=== PATIENT | female | born 1955 | race Caucasian/White ===

== ENCOUNTER 2019-03-04 13:37 | Outpatient (CLI) | payer MEDICARE, MEDICAID, SELFPAY | END 2019-03-04 13:38 | disposition home or self-care (01) | LOC: RT 13:43 | PROVIDERS: Family Provider Family Medicine; PCP Family Medicine; Visit Provider Internal Medicine Critical Care Medicine | DX: J98.4 Other disorders of lung (principal) | CPT/HCPCS: 94060; 94726; 94729; J7611 ==

== ENCOUNTER → 2019-03-20 08:08 | Outpatient (BNVA) | payer MEDICARE, MEDICAID, SELFPAY | PROVIDERS: Family Provider Family Medicine; PCP Family Medicine; Visit Provider Nurse Practitioner | DX: F33.41 Major depressive disorder, recurrent, in partial remission (principal); F43.12 Post-traumatic stress disorder, chronic; G31.84 Mild cognitive impairment of uncertain or unknown etiology | CPT/HCPCS: 99214 ==

== ENCOUNTER 2019-04-29 20:00 | Outpatient (CLI) | payer MEDICARE, MEDICAID, SELFPAY | END 2019-04-29 20:01 | disposition home or self-care (01) | LOC: SLEEP 04-30 10:12 | PROVIDERS: Family Provider Family Medicine; PCP Family Medicine; Visit Provider Internal Medicine Critical Care Medicine | DX: G47.33 Obstructive sleep apnea (adult) (pediatric) (principal) | CPT/HCPCS: 95810 ==

== ENCOUNTER → 2019-06-12 08:22 | Outpatient (BNVA) | payer MEDICARE, MEDICAID, SELFPAY | PROVIDERS: Family Provider Family Medicine; PCP Family Medicine; Visit Provider Nurse Practitioner | DX: F33.41 Major depressive disorder, recurrent, in partial remission (principal); F43.12 Post-traumatic stress disorder, chronic; G31.84 Mild cognitive impairment of uncertain or unknown etiology | CPT/HCPCS: 99213 ==

== ENCOUNTER 2019-06-12 15:53 | Outpatient (CLI) | payer MEDICARE, MEDICAID, SELFPAY ==
--- NOTE | 2019-06-12 | US_ITS ---
WS: [id number] LEFT LOWER EXTREMITY VENOUS ULTRASOUND EXAMINATION CLINICAL INFORMATION: PAIN OF LEFT CALF COMPARISON: None. FINDINGS: Thigh veins The left common femoral, femoral, popliteal, proximal medial saphenous, deep femoral veins are patent and free of thrombus. The veins are normally compressible, and have normal phasic flow and augmentat ion response. Calf veins The paired peroneal and posterior tibial calf veins are patent bilaterally. US/ROR venous duplex LE LT IMPRESSION: Negative study. No deep vein thrombosis of the left lower extremity.
== END 2019-06-12 15:54 | disposition home or self-care (01) ==
PROVIDERS: Family Provider Family Medicine; PCP Family Medicine; Visit Provider Family Medicine
DX: M79.662 Pain in left lower leg (principal)

== ENCOUNTER 2019-07-11 11:32 | Inpatient (IN) | payer MEDICARE, MEDICAID, SELFPAY ==
[2019-07-11] VITALS (13 sets, daily range): BP systolic 73–145; BP diastolic 47–112; PULSE 64–107; RESP 13–24; TEMP 36.2–36.8; O2SAT 96–98; BMI 38.4
--- NOTE | 2019-07-11 11:37 | CT_ITS ---
WS: [id number] CT HEAD NONCONTRAST HISTORY: AMS TECHNIQUE: Contiguous axial imaging performed through the brain in 2.5 mm imaging. Bone and soft tiss ue windows. Sagittal and coronal reformats reviewed. All CT scans at [facility] use at ast one of these dose optimization techniques: automated exposure control; mA and/or kV adjustment pe r patient size (includes targeted exams where dose is matched to clinical indication); or iterative r econstruction. DLP: 1120.35 mGy.cm COMPARISON: 11/07/2018 No acute intracranial hemorrhage, midline shift or mass effect. Mild bilateral cerebral atrophy. Prior infarct along the RIGHT external capsule. Mild chronic microva scular ischemic changes greatest involving the RIGHT potts radiata. Ventricles: Normal size with no hydrocephalus. Paranasal sinuses: As visualized are clear. Mastoid air cells: Well pneumatized. Calvarium and scalp: Skull is intact with no soft tissue edema or swelling. CT/CT head wo con* [id number] IMPRESSION: 1. No acute infarct or intracranial hemorrhage. 2. 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
--- NOTE | 2019-07-11 11:37 | XR_ITS ---
WS: [id number] PORTABLE CHEST HISTORY: SOB COMPARISON: 11/07/2018 Patient is significantly rotated to the RIGHT. Lung volumes are decreased. No pneumonia is identified. Similar appearance of the lungs as compared t o the prior study. No pleural effusion or pneumothorax. Cardiac size: Normal. Mediastinum/Aorta: Mild atherosclerosis aorta. Bones are osteopenic. XR/XR chest 1V portable [id number] IMPRESSION: Limited by rotation. No pneumonia or acute findings.
--- NOTE | 2019-07-11 11:47 | W.ED.AMS ---
HPI - Altered Mental Status General: Chief Complaint: Altered Mental Status Stated Complaint: Altered mental status, low blood pressure Time Seen by Provider: 07/11/19 11:37 History of Present Illness: HPI narrative: This patient is a 63-year-old female presenting with altered mental status. She was brought in by EMS and reportedly went to a neighbor's house where she was noted to be very confused and EMS was called. On their arrival her blood pressure was in the 70s systolic. Her only complaint is pain in her right leg. She indicates it is in her calf. She does seem confused but is able to answer questions. She can tell me her name, where she is, her primary care doctor who is Dr. Blake. She did however think it was February. She was able to tell me that she takes medicine for high blood pressure and that she does not have a history of diabetes, heart disease, stroke. When I asked her how she felt today she said I have felt better . MD complaint: altered mental status and confusion Onset (ago): unknown Context: unknown Review of Systems General: Reports: ROS unobtainable due to medical condition and ROS unobtainable due to mental status [facility] ED PFSH: Medical History (Updated 07/11/19 @ 15:07 by Alen Johnson MD) Hyponatremia Major depressive disorder, recurrent, in partial remission Mild cognitive impairment, so stated Post-traumatic stress disorder, chronic Social History Smoking and tobacco status: former smoker Physical Exam Const: COMMON NORMALS: no acute distress and alert GENERAL APPEARANCE: cooperative, anxious, disheveled and other (Answering questions mostly in single word answers. Very flat affect.) HENMT: HEAD & SCALP: normal to inspection FACE & SINUS: normal facial exam and other (Some redness around the face in general) MOUTH: moist mucous membranes abnormal (Dry) Eye: GENERAL EYE: appearance normal, both eyes and all related structures Neck/C-Spine: COMMON NORMALS: supple, no meningeal signs and no JVD Chest: COMMONS NORMALS: normal inspection of the chest Resp: COMMON NORMALS: normal respiratory effort, No use of accessory muscles and clear to auscultation bilaterally AUSCULTATION: clear to auscultation bilaterally Cardio: COMMON NORMALS: no JVD, regular rhythm and No murmurs present (Cardio) RATE: tachycardic RHYTHM: regular rhythm GI: COMMON NORMALS: Normal to inspection, nondistended, normoactive bowel sounds present, Soft to palpation and non-tender INSPECTION: Yes normal to inspection AUSCULTATION: Yes normoactive bowel sounds PALPATION: Yes Soft to palpation Back/Pelvis: COMMON NORMALS: thoracic and lumbar spine normal to inspection Extremity: COMMON NORMALS: normal to inspection, no calf tenderness (Unable to reproduce pain however she is complaining of pain in the right calf.) and no pedal edema Neuro: SENSORIUM/ORIENTATION: Yes alert MENINGEAL SIGNS: Yes no meningeal signs Psych: COMMON NORMALS: cooperative APPEARANCE: Yes disheveled MOOD & AFFECT: Yes Flat affect present THOUGHT PROCESS: Impoverished thought process present ATTENTION/CONCENTRATION: Yes attention grossly intact Skin: COMMON NORMALS: no rashes or lesions noted and turgor normal GENERAL SKIN EXAM: no rashes or lesions noted and turgor normal Course ED course: Triage blood pressure seem to be erroneous and then it was repeated. She was then noted again to be 70 systolic. I had already ordered 500 mL's of fluid and ordered another liter of normal saline as well. Her blood pressure has gradually improved into the 90s and is now 125/63. Heart rate is 72. She is resting quietly in the bed awaiting CT. Reevaluation(s): Reevaluation #1: The patient became more alert throughout her ER stay and also became more agitated. She was given a little bit of Ativan and then some Geodon to try to help her relax. Her daughter also said at bedside. I got further history from her daughter and she said that yesterday her mother seemed to be fine. She does have a little bit of dementia but she is definitely out of it today per her daughter's assessment. The daughter does not know of any recent illnesses or medication changes. She had not seen the patient today. Work-up showed a basically normal ABG. Potassium was 2.3, sodium 129. CO2 was 17. Lactate was 3.6 and d-dimer was slightly above the normal range at 0.78. I believe her leg pain is probably related to the low potassium. Her magnesium was okay. CT head was negative for anything acute. Blood pressure has remained good since she got her fluid bolus. I am going to admit her for further management. I also gave her a dose of antibiotics as it appears that her urine is infected. This may be the cause of her acute mental status change. Time: 14:55 Vital Signs: Vital signs: Vital Signs Temperature 98.1 F 07/11/19 15:49 Pulse Rate 80 07/11/19 15:49 Respiratory Rate 18 07/11/19 15:49 Blood Pressure 117/66 07/11/19 15:49 Pulse Oximetry 96 07/11/19 15:49 MDM - Altered Mental Status MDM Narrative: Medical decision making narrative: Altered mental status, hypotension, hypokalemia. She is on multiple medications including some for her dementia. She is also on medications which could affect her potassium level. Her daughter says that the patient keeps her medications in daily dose boxes and is unlikely to have taken extra. She does have a UTI and this could be enough, given her baseline dementia, to cause an altered mental status. Potassium replaced in the ED. Initially started magnesium on the presumption that that would be low as well however it was not. Her blood pressure responded nicely to fluids. She will be admitted for further monitoring and evaluation. Lab Data: Labs: Lab Results 07/11/19 07/11/19 07/11/19 Range/Units 11:37 11:37 11:37 WBC 7.8 (4.0-10.0) 10^3/ uL RBC 4.44 (4.1-5.3) 10^6/u L Hgb 13.6 (11.5-15.3) g/dL Hct 38.7 (37.0-47.0) % MCV 87.2 (81-99) fL MCH 30.6 (28.0-34.0) pg MCHC 35.1 (30.0-36.0) g/dL RDW 11.9 L (12.1-15.1) % Plt Count 419 H (130-400) 10^3/c mm MPV 9.4 (7.4-10.4) fL Neut % (Auto) 85.2 % Lymph % (Auto) 8.1 % [place] % (Auto) 5.1 % Eos % (Auto) 0.0 % Baso % (Auto) 0.3 % Neut # (Auto) 6.6 (1.8-7.7) 10^3/u L Lymph # (Auto) 0.6 L (0.8-4.8) 10^3/u L [place] # (Auto) 0.4 (0.2-0.9) 10^3/u L Eos # (Auto) 0.0 (0.0-0.8) 10^3/u L Baso # (Auto) 0.0 (0.0-0.1) 10^3/u L Nucleated RBC % (a uto) 0 % Nucleated RBCs # 0.0 /100WBC ESR 26 H (0-15) mm/hr PT 14.50 H (10.5-13.3) SECO NDS INR 1.10 (0.8-1.2) D-Dimer 0.78 H (0-0.59) ug/mIFE U Specimen Type Sample Site ABG pH (7.35-7.45) ABG pCO2 (35-45) mmHg ABG pO2 (80.0-100.0) mmH g ABG HCO3 (22-26) mmol/L ABG Base Excess (-2.0-2.0) mmol/ L Froylan Test Hematocrit (37-47) % O2 Delivery Device FiO2 % Ditch Inspector ID Sodium (136-145) mmol/L Potassium (3.5-5.1) mmol/L Chloride (98-107) mmol/L Carbon Dioxide (22-29) mmol/L Anion Gap (5-19) BUN (8-23) mg/dL Creatinine (0.5-0.9) mg/dL GFR Calculation (90-130) mL/min Glucose (65-115) mg/dL POC Glucose (70-110) mg/dL Calculated Osmolal ity (285-295) mOsm/k g Lactate (0.5-2.2) mmol/L Calcium (8.5-10.5) mg/dL Magnesium (1.7-2.3) mg/dL Total Bilirubin (0.15-1.2) mg/dL AST (0-32) U/L ALT (0-33) U/L Alkaline Phosphata se (35-105) IU/L C-Reactive Protein (0.0-4.9) mg/L NT-Pro-B Natriuret Pep (0-125) pg/mL Total Protein (6.6-8.7) g/dL Albumin (3.5-5.2) g/dL Globulin (1.3-4.6) g/dL TSH (0.27-4.20) uIU/ mL Free T4 (0.82-1.77) ng/d L Urine Color (Yellow) Urine Appearance (CLEAR) Urine pH (5-7) Ur Specific Gravit y (1.005-1.030) Urine Protein (Negative) Urine Glucose (UA) (Normal) Urine Ketones (Negative) Urine Blood (Negative) Urine Nitrate (Negative) Urine Bilirubin (NEGATIVE) Urine Urobilinogen (Negative) mg/dL Ur Leukocyte Chelsey ase (Negative) Urine RBC (0-2) /hpf Urine WBC (0-5) /hpf Ur Squamous Epith Cells (0-5) Amorphous Sediment Urine Bacteria (NONE) Hyaline Casts Urine Mucus Salicylates (3-10) mg/dL Urine Opiates Scre en (Negative) ng/mL Acetaminophen (10-30) ug/mL Ur Barbiturates Sc reen (Negative) ng/mL Ur Phencyclidine S crn (Negative) ng/mL Ur Amphetamines Sc reen (Negative) ng/mL U Benzodiazepines Scrn (Negative) ng/mL Urine Cocaine Scre en (Negative) ng/mL U Marijuana (THC) Screen (Negative) ng/mL Ethyl Alcohol (0-10) mg/dL 07/11/19 07/11/19 07/11/19 Range/Units 11:37 11:37 11:37 WBC (4.0-10.0) 10^3/ uL RBC (4.1-5.3) 10^6/u L Hgb (11.5-15.3) g/dL Hct (37.0-47.0) % MCV (81-99) fL MCH (28.0-34.0) pg MCHC (30.0-36.0) g/dL RDW (12.1-15.1) % Plt Count (130-400) 10^3/c mm MPV (7.4-10.4) fL Neut % (Auto) % Lymph % (Auto) % [place] % (Auto) % Eos % (Auto) % Baso % (Auto) % Neut # (Auto) (1.8-7.7) 10^3/u L Lymph # (Auto) (0.8-4.8) 10^3/u L [place] # (Auto) (0.2-0.9) 10^3/u L Eos # (Auto) (0.0-0.8) 10^3/u L Baso # (Auto) (0.0-0.1) 10^3/u L Nucleated RBC % (a uto) % Nucleated RBCs # /100WBC ESR (0-15) mm/hr PT (10.5-13.3) SECO NDS INR (0.8-1.2) D-Dimer (0-0.59) ug/mIFE U Specimen Type Sample Site ABG pH (7.35-7.45) ABG pCO2 (35-45) mmHg ABG pO2 (80.0-100.0) mmH g ABG HCO3 (22-26) mmol/L ABG Base Excess (-2.0-2.0) mmol/ L Froylan Test Hematocrit (37-47) % O2 Delivery Device FiO2 % Ditch Inspector ID Sodium 129 L (136-145) mmol/L Potassium 2.3 L* (3.5-5.1) mmol/L Chloride 87 L (98-107) mmol/L Carbon Dioxide 17 L (22-29) mmol/L Anion Gap 27.3 H (5-19) BUN 17 (8-23) mg/dL Creatinine 1.4 H (0.5-0.9) mg/dL GFR Calculation 37.9 L (90-130) mL/min Glucose 172 H (65-115) mg/dL POC Glucose (70-110) mg/dL Calculated Osmolal ity 268 L (285-295) mOsm/k g Lactate 3.6 H (0.5-2.2) mmol/L Calcium 10.0 (8.5-10.5) mg/dL Magnesium 2.6 H (1.7-2.3) mg/dL Total Bilirubin 0.3 (0.15-1.2) mg/dL AST 88 H (0-32) U/L ALT 41 H (0-33) U/L Alkaline Phosphata se 76 (35-105) IU/L C-Reactive Protein 34.8 H (0.0-4.9) mg/L NT-Pro-B Natriuret Pep 309 H (0-125) pg/mL Total Protein 7.1 (6.6-8.7) g/dL Albumin 4.3 (3.5-5.2) g/dL Globulin 2.8 (1.3-4.6) g/dL TSH 0.85 (0.27-4.20) uIU/ mL Free T4 2.18 H (0.82-1.77) ng/d L Urine Color (Yellow) Urine Appearance (CLEAR) Urine pH (5-7) Ur Specific Gravit y (1.005-1.030) Urine Protein (Negative) Urine Glucose (UA) (Normal) Urine Ketones (Negative) Urine Blood (Negative) Urine Nitrate (Negative) Urine Bilirubin (NEGATIVE) Urine Urobilinogen (Negative) mg/dL Ur Leukocyte Chelsey ase (Negative) Urine RBC (0-2) /hpf Urine WBC (0-5) /hpf Ur Squamous Epith Cells (0-5) Amorphous Sediment Urine Bacteria (NONE) Hyaline Casts Urine Mucus Salicylates < 0.3 L (3-10) mg/dL Urine Opiates Scre en (Negative) ng/mL Acetaminophen < 5.0 L (10-30) ug/mL Ur Barbiturates Sc reen (Negative) ng/mL Ur Phencyclidine S crn (Negative) ng/mL Ur Amphetamines Sc reen (Negative) ng/mL U Benzodiazepines Scrn (Negative) ng/mL Urine Cocaine Scre en (Negative) ng/mL U Marijuana (THC) Screen (Negative) ng/mL Ethyl Alcohol < 10 (0-10) mg/dL 07/11/19 07/11/19 07/11/19 Range/Units 11:55 12:12 12:48 WBC (4.0-10.0) 10^3/ uL RBC (4.1-5.3) 10^6/u L Hgb (11.5-15.3) g/dL Hct (37.0-47.0) % MCV (81-99) fL MCH (28.0-34.0) pg MCHC (30.0-36.0) g/dL RDW (12.1-15.1) % Plt Count (130-400) 10^3/c mm MPV (7.4-10.4) fL Neut % (Auto) % Lymph % (Auto) % [place] % (Auto) % Eos % (Auto) % Baso % (Auto) % Neut # (Auto) (1.8-7.7) 10^3/u L Lymph # (Auto) (0.8-4.8) 10^3/u L [place] # (Auto) (0.2-0.9) 10^3/u L Eos # (Auto) (0.0-0.8) 10^3/u L Baso # (Auto) (0.0-0.1) 10^3/u L Nucleated RBC % (a uto) % Nucleated RBCs # /100WBC ESR (0-15) mm/hr PT (10.5-13.3) SECO NDS INR (0.8-1.2) D-Dimer (0-0.59) ug/mIFE U Specimen Type Arterial Sample Site Radial, left ABG pH 7.40 (7.35-7.45) ABG pCO2 30.4 L (35-45) mmHg ABG pO2 70.1 L (80.0-100.0) mmH g ABG HCO3 18.7 L (22-26) mmol/L ABG Base Excess -5.0 L (-2.0-2.0) mmol/ L Froylan Test Pos Hematocrit 41.9 (37-47) % O2 Delivery Device None FiO2 21.0 % Ditch Inspector ID ed Sodium (136-145) mmol/L Potassium (3.5-5.1) mmol/L Chloride (98-107) mmol/L Carbon Dioxide (22-29) mmol/L Anion Gap (5-19) BUN (8-23) mg/dL Creatinine (0.5-0.9) mg/dL GFR Calculation (90-130) mL/min Glucose (65-115) mg/dL POC Glucose 128 (70-110) mg/dL Calculated Osmolal ity (285-295) mOsm/k g Lactate (0.5-2.2) mmol/L Calcium (8.5-10.5) mg/dL Magnesium (1.7-2.3) mg/dL Total Bilirubin (0.15-1.2) mg/dL AST (0-32) U/L ALT (0-33) U/L Alkaline Phosphata se (35-105) IU/L C-Reactive Protein (0.0-4.9) mg/L NT-Pro-B Natriuret Pep (0-125) pg/mL Total Protein (6.6-8.7) g/dL Albumin (3.5-5.2) g/dL Globulin (1.3-4.6) g/dL TSH (0.27-4.20) uIU/ mL Free T4 (0.82-1.77) ng/d L Urine Color Yellow (Yellow) Urine Appearance Sl cloudy A (CLEAR) Urine pH 6.5 (5-7) Ur Specific Gravit y 1.010 (1.005-1.030) Urine Protein 1+ H (Negative) Urine Glucose (UA) Norm (Normal) Urine Ketones 1+ H (Negative) Urine Blood 2+ H (Negative) Urine Nitrate Negative (Negative) Urine Bilirubin Neg (NEGATIVE) Urine Urobilinogen Neg (Negative) mg/dL Ur Leukocyte Chelsey ase Negative (Negative) Urine RBC 5-10 H (0-2) /hpf Urine WBC 5-10 H (0-5) /hpf Ur Squamous Epith Cells 0-4 H (0-5) Amorphous Sediment 1+ Urine Bacteria 1+ H (NONE) Hyaline Casts 0-4 H Urine Mucus None Salicylates (3-10) mg/dL Urine Opiates Scre en (Negative) ng/mL Acetaminophen (10-30) ug/mL Ur Barbiturates Sc reen (Negative) ng/mL Ur Phencyclidine S crn (Negative) ng/mL Ur Amphetamines Sc reen (Negative) ng/mL U Benzodiazepines Scrn (Negative) ng/mL Urine Cocaine Scre en (Negative) ng/mL U Marijuana (THC) Screen (Negative) ng/mL Ethyl Alcohol (0-10) mg/dL 07/11/19 Range/Units 12:48 WBC (4.0-10.0) 10^3/ uL RBC (4.1-5.3) 10^6/u L Hgb (11.5-15.3) g/dL Hct (37.0-47.0) % MCV (81-99) fL MCH (28.0-34.0) pg MCHC (30.0-36.0) g/dL RDW (12.1-15.1) % Plt Count (130-400) 10^3/c mm MPV (7.4-10.4) fL Neut % (Auto) % Lymph % (Auto) % [place] % (Auto) % Eos % (Auto) % Baso % (Auto) % Neut # (Auto) (1.8-7.7) 10^3/u L Lymph # (Auto) (0.8-4.8) 10^3/u L [place] # (Auto) (0.2-0.9) 10^3/u L Eos # (Auto) (0.0-0.8) 10^3/u L Baso # (Auto) (0.0-0.1) 10^3/u L Nucleated RBC % (a uto) % Nucleated RBCs # /100WBC ESR (0-15) mm/hr PT (10.5-13.3) SECO NDS INR (0.8-1.2) D-Dimer (0-0.59) ug/mIFE U Specimen Type Sample Site ABG pH (7.35-7.45) ABG pCO2 (35-45) mmHg ABG pO2 (80.0-100.0) mmH g ABG HCO3 (22-26) mmol/L ABG Base Excess (-2.0-2.0) mmol/ L Froylan Test Hematocrit (37-47) % O2 Delivery Device FiO2 % Ditch Inspector ID Sodium (136-145) mmol/L Potassium (3.5-5.1) mmol/L Chloride (98-107) mmol/L Carbon Dioxide (22-29) mmol/L Anion Gap (5-19) BUN (8-23) mg/dL Creatinine (0.5-0.9) mg/dL GFR Calculation (90-130) mL/min Glucose (65-115) mg/dL POC Glucose (70-110) mg/dL Calculated Osmolal ity (285-295) mOsm/k g Lactate (0.5-2.2) mmol/L Calcium (8.5-10.5) mg/dL Magnesium (1.7-2.3) mg/dL Total Bilirubin (0.15-1.2) mg/dL AST (0-32) U/L ALT (0-33) U/L Alkaline Phosphata se (35-105) IU/L C-Reactive Protein (0.0-4.9) mg/L NT-Pro-B Natriuret Pep (0-125) pg/mL Total Protein (6.6-8.7) g/dL Albumin (3.5-5.2) g/dL Globulin (1.3-4.6) g/dL TSH (0.27-4.20) uIU/ mL Free T4 (0.82-1.77) ng/d L Urine Color (Yellow) Urine Appearance (CLEAR) Urine pH (5-7) Ur Specific Gravit y (1.005-1.030) Urine Protein (Negative) Urine Glucose (UA) (Normal) Urine Ketones (Negative) Urine Blood (Negative) Urine Nitrate (Negative) Urine Bilirubin (NEGATIVE) Urine Urobilinogen (Negative) mg/dL Ur Leukocyte Chelsey ase (Negative) Urine RBC (0-2) /hpf Urine WBC (0-5) /hpf Ur Squamous Epith Cells (0-5) Amorphous Sediment Urine Bacteria (NONE) Hyaline Casts Urine Mucus Salicylates (3-10) mg/dL Urine Opiates Scre en Negative (Negative) ng/mL Acetaminophen (10-30) ug/mL Ur Barbiturates Sc reen Negative (Negative) ng/mL Ur Phencyclidine S crn Negative (Negative) ng/mL Ur Amphetamines Sc reen Negative (Negative) ng/mL U Benzodiazepines Scrn Negative (Negative) ng/mL Urine Cocaine Scre en Negative (Negative) ng/mL U Marijuana (THC) Screen Negative (Negative) ng/mL Ethyl Alcohol (0-10) mg/dL EKG Data^: EKG 1: EKG interpretation date: 07/11/19 EKG interpretation time: 11:56 Interpretation: EKG shows a sinus rhythm with a rate of 96. She is a wide complex with a QRS duration of 159. QTc is 447. TX interval is 137. She shows a right bundle branch block. Comparison to an EKG from 2019 shows no significant change. Discharge Plan Discharge Patient Disposition: Admitted As Inpatient Admit Provider: Alen Johnson Condition: Fair Discharge Date/Time: 07/11/19 15:08 Coding Level of Care Code ED Keying Machine Operator for g Fwd Exam Comprehensive
[2019-07-11 11:50] LABS: Basophils % 0.3 %; Hematocrit 38.7 % (37.0-47.0); Hemoglobin 13.6 g/dL (11.5-15.3); Lymphocytes # 0.6 10^3/uL (0.8-4.8); Lymphocytes % 8.1 %; Mean Corpuscular HGB Conc 35.1 g/dL (30.0-36.0); Mean Corpuscular Hemoglobin 30.6 pg (28.0-34.0); Mean Corpuscular Volume 87.2 fL (81-99); Mean Platelet Volume 9.4 fL (7.4-10.4); Monocytes # 0.4 10^3/uL (0.2-0.9); Monocytes % 5.1 %; Neutrophils # 6.6 10^3/uL (1.8-7.7); Neutrophils % 85.2 %; Nucleated Red Blood Cells % 0 %; Platelet Count 419 10^3/cmm (130-400); Red Blood Count 4.44 10^6/uL (4.1-5.3); Red Cell Distribution Width 11.9 % (12.1-15.1); White Blood Count 7.8 10^3/uL (4.0-10.0)
[2019-07-11 12:06] LABS: ABG PCO2 30.4 mmHg (35-45); Arterial Blood Gas Hematocrit 41.9 % (37-47); Blood Gas Allen Test Pos; Blood Gas Sample Site Radial, left; Blood Gas Sample Type Arterial; HCO3 ABG 18.7 mmol/L (22-26); PO2 ABG 70.1 mmHg (80.0-100.0)
[2019-07-11] MEDS: sodium chloride 0.9% 500 ML 999 ML IV (12:08)
[2019-07-11] MEDS: sodium chloride 0.9% 1,000 ML 999 ML IV (12:09)
[2019-07-11 12:17] LABS: Glucose Point of Care 128 mg/dL (70-110)
[2019-07-11 12:19] LABS: D Dimer 0.78 ug/mIFEU (0-0.59)
[2019-07-11 12:29] LABS: Lactate (Lactic Acid level) 3.6 mmol/L (0.5-2.2)
[2019-07-11 12:41] LABS: Alanine Aminotransferase 41 U/L (0-33); Albumin Level 4.3 g/dL (3.5-5.2); Alkaline Phosphatase 76 IU/L (35-105); Anion Gap 27.3 (5-19); Aspartate Amino Transferase 88 U/L (0-32); Blood Urea Nitrogen 17 mg/dL (8-23); Carbon Dioxide 17 mmol/L (22-29); Chloride 87 mmol/L (98-107); Globulin 2.8 g/dL (1.3-4.6); Glomerular Filtration Rate 37.9 mL/min (90-130); Glucose 172 mg/dL (65-115); NT Pro B Type Natriuretic Pept 309 pg/mL (0-125); Osmolality Calculated 268 mOsm/kg (285-295); Sodium 129 mmol/L (136-145); Total Bilirubin 0.3 mg/dL (0.15-1.2); Total Protein 7.1 g/dL (6.6-8.7)
[2019-07-11 12:47] LABS: Acetaminophen < 5.0 ug/mL (10-30); Alcohol Level < 10 mg/dL (0-10); Potassium 2.3 mmol/L (3.5-5.1); Salicylate < 0.3 mg/dL (3-10)
[2019-07-11] MEDS: magnesium sulfate premix 2 GM/50 ML PIGGYBACK IV (13:03)
[2019-07-11] MEDS: potassium chloride premix 40 MEQ/100 ML PREMIX 25 MEQ IV ×2 (13:04→17:20)
[2019-07-11 13:09] LABS: Erythrocyte Sedimentation Rate 26 mm/hr (0-15)
[2019-07-11 13:10] LABS: Add Urine Microscopic? YES; Bilirubin Urine Neg (NEGATIVE); Blood Urine 2+ (Negative); Glucose Urine UA Norm (Normal); Ketones Urine 1+ (Negative); Leukocyte Esterase Urine Negative (Negative); Nitrate Urine Negative (Negative); Protein Urine 1+ (Negative); Urine Color Yellow (Yellow); Urobilinogen Urine Neg (Negative); pH Urine 6.5 (5-7)
[2019-07-11 13:17] LABS: Amphetamines Screen Urine Negative (Negative); Barbiturates Screen Urine Negative (Negative); Benzodiazepines Screen Urine Negative (Negative); Cocaine Screen Urine Negative (Negative); Opiate Screen Urine Negative (Negative); PCP Screen Urine Negative (Negative); THC Screen Urine Negative (Negative)
[2019-07-11 13:23] LABS: Free T4 Free Thyroxine 2.18 ng/dL (0.82-1.77); Magnesium 2.6 mg/dL (1.7-2.3); Thyroid Stimulating Hormone 0.85 uIU/mL (0.27-4.20)
[2019-07-11 13:28] LABS: Bacteria Urine 1+; Squamous Epithelial Cell Urine 0-4 (0-5)
[2019-07-11 13:29] LABS: Add Urine Culture? Yes; Amorphous Sediment Urine 1+; Hyaline Casts Urine 0-4
--- NOTE | 2019-07-11 13:40 | PC.NURSE ---
Rounded on patient. Patient had removed IV from the right AC. New 20 G IV started in the right AC at this time.
[2019-07-11] MEDS: LORazepam 2 mg/mL INJ 1 mL 0.5 MG IVP (13:43)
[2019-07-11] MEDS: ziprasidone 20 mg/mL SDV 10 MG IM (14:02)
[2019-07-11] MEDS: water for injection-sterile 10 ML 1.2 ML (14:05)
[2019-07-11 14:30] LABS: C Reactive Protein 34.8 mg/L (0.0-4.9)
--- NOTE | 2019-07-11 15:05 | PM.HP ---
Providers/Chief Complaint Admitting Physician: Alen Johnson MD Primary Care Provider: Jamaal Blake MD Chief Complaint: Altered mental status, low blood pressure History of Present Illness Nel Porter is a 63 year old female with past medical history of depression, PTSD, hypertension was brought into the ER today by EMS after she was found wandering and onto the streets and into her neighbor's house. As per the ER physician on arrival of EMS patient blood pressure was 70 systolic. No further history is available at present. On evaluation patient is awake alert but oriented only to self. She thinks it is January 2020 and she is at a nursing facility in [place]. She denies of having any pain, nausea, vomiting is maintaining her airway and saturation and wondering when can she go home. In the ER she was found to have blood pressure of 80 systolic which improved with 3 L of fluids. Blood work done showed white count of 7.8 hemoglobin of 13.6 ESR of 26 d-dimer of 0.78 ABG showed a PCO2 of 30 and a PO2 of 70.1 sodium of 129 potassium of 2.3 creatinine of 1.4 AST and ALT mildly elevated and normal alkaline phosphatase and a proBNP of 309 urinalysis was done was negative for nitrite and leuk esterase but was positive for ketones. On evaluation patient was saturating 94% on room air. 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 On review of her records patient was recently seen by psychiatry through telemedicine and at that time was depressed of not been able to get out of the house and was continued on her regular home medications. Patient states that her medications are managed by her nurse who comes once a month. And her food is mostly prepared by her daughter who comes in and out but does not live with her. Patient states she lives by herself. I have tried calling daughter twice but have not been able to get in touch we will try again. Review of Systems General: Reports: ROS unobtainable due to mental status Medications/Allergies Home Medications Medication Instructions Recorded Confirmed Last Taken Type bupropion HCl 300 mg 24 hr tablet, 300 mg PO QAM #30 tab 06/12/19 07/11/19 07/11/19 Rx extended release escitalopram oxalate 20 mg tablet 20 mg PO DAILY #30 tab 06/12/19 07/11/19 07/11/19 Rx memantine 10 mg tablet 10 mg PO DAILY #30 tab 06/12/19 07/11/19 07/11/19 Rx risperidone 4 mg tablet 4 mg PO BID #60 tab 06/12/19 07/11/19 07/10/19 Rx ropinirole 0.5 mg tablet 0.5 mg PO BID #60 tab 06/12/19 07/11/19 07/10/19 Rx Aricept 10 mg PO BEDTIME 07/11/19 07/11/19 07/10/19 History albuterol sulfate 1 puff INHALATION QID PRN 07/11/19 07/11/19 Unknown History atorvastatin 20 mg PO DAILY 07/11/19 07/11/19 07/10/19 History chlorthalidone 25 mg PO DAILY 07/11/19 07/11/19 07/11/19 History ergocalciferol (vitamin D2) 1,250 mcg PO Q7D 07/11/19 07/11/19 Unknown History famotidine 20 mg PO DAILY 07/11/19 07/11/19 07/11/19 History losartan 25 mg PO BID 07/11/19 07/11/19 07/11/19 History montelukast 10 mg PO DAILY 07/11/19 07/11/19 07/10/19 History potassium chloride 20 meq PO BID 07/11/19 07/11/19 07/11/19 History prazosin 1 mg PO BEDTIME 07/11/19 07/11/19 07/10/19 History trazodone 150 mg PO BEDTIME 07/11/19 07/11/19 07/10/19 History umeclidinium-vilanterol [Anoro 1 inh INHALATION BID 07/11/19 07/11/19 07/11/19 History Ellipta] Allergies Allergy/AdvReac Type Severity Reaction Status Date / Time doxycycline Allergy Unknown Verified 02/28/19 11:34 Penicillins Allergy unknown Verified 02/28/19 11:33 PFSH Acute PFSH: Medical History (Updated 07/11/19 @ 17:04 by Linda Novoa MD) Hyponatremia Major depressive disorder, recurrent, in partial remission Mild cognitive impairment, so stated Post-traumatic stress disorder, chronic Social History Smoking and tobacco status: former smoker Vitals/I&O/Wt Last Vital Signs Temp 98.2 F 07/11/19 11:33 Pulse 99 07/11/19 15:03 Resp 18 07/11/19 15:03 BP 138/69 07/11/19 15:03 Pulse Ox 96 07/11/19 15:03 07/11/19 07/11/19 07/11/19 06:59 14:59 22:59 Intake Total 1525 / 1525 Balance 1525 / 1525 Weight last 48 hrs Weight 95.254 kg Physical Exam Narrative: EXAM NARRATIVE: General: No acute distress, AO x1 to self, thinks its Jan 2020 and she is at home in [place] HEENT: PERRLA, pupils bilaterally equal and reactive Chest: Normal vesicular breath sounds, no added sounds, equal good air entry bilaterally CVS: S1-S2 regular, no murmurs, no tachycardia, no gallops, no rubs Abdomen: Soft, nontender, no organomegaly, bowel sounds present Neuro: No focal deficits, no facial deformity, AO x3, power 5/5 in all limbs Urinary Catheter Management^: Her: Cath Placed During This Visit: yes Reason for Continuing Indwelling Catheter: Other Urinary Catheter Date of Insertion: 07/11/19 Urinary Catheter Time of Insertion: 12:47 Data : 07/12/19 05:45 07/12/19 05:45 A&P Assessment and plan (1) Hypotension: Status: Acute (2) AMS (altered mental status): Status: Acute (3) Dehydration: Status: Acute (4) GEM (acute kidney injury): Status: Acute (5) Hypokalemia: Status: Acute (6) Hyponatremia: Status: Acute (7) Major depressive disorder, recurrent, in partial remission: Status: Acute (8) Post-traumatic stress disorder, chronic: Status: Acute Additional A&P Information Hypotension: Most likely second to dehydration because of poor oral intake which is evident from poor renal function, hyponatremia and hypokalemia. Continue with normal saline 100 cc/h. Continue to monitor blood pressure. Continue to hold off on home dose of antihypertensives and hydrochlorothiazide. Altered mental status: Could be due to combination of hyponatremia along with multiple psychiatric medications accumulating due to mild worsening in renal functions. One-to-one sitter. Continue to reorient. For now we will continue on home medications for PTSD, depression to avoid withdrawal. Creatinine clearance 60. Medical risk consideration has been done accordingly. CT head negative for any acute pathology. Check procalcitonin, TSH, free T3, free T4, lactate, ammonia levels, CPK levels, vitamin B12 and folate levels. Without leukocytosis and fever within normal UA and no infiltrate on chest x-ray chances of infection are low so we will hold off on antibiotics for now. Hyponatremia: Most likely secondary to dehydration. But can be SIADH because of chronic psychiatric medications as well. Check serum osmolality, urine osmolality, urine lites. Check BMP in 12 hours. Hypokalemia: Replete with 80 mEq oral and 40 mg IV. We will continue other chronic medications. We will change medical therapy as per the results of the test and clinical developments. Full code. Cardiac diet. Heparin 5000 q. 8 for DVT prophylaxis. Social service consult for safe discharge. Patient states she lives by herself and has a nurse coming in once a month to take care of medications. Attestations Medical Necessity Statement*: AMS, hypotension Time Spent in Patient Care: Greater than 35 minutes Coding Level of Care Code Acute Event Security Officer for [facility] Fwd Diagnoses Hypotension I95.9 AMS (altered mental status) R41.82 Dehydration E86.0 GEM (acute kidney injury) N17.9 Hypokalemia E87.6 Hyponatremia E87.1 Major depressive disorder, recurrent, in partial remission F33.41 Post-traumatic stress disorder, chronic F43.12
[2019-07-11] MEDS: famotidine 20 mg/2 mL INJ IVP (16:27)
[2019-07-11 17:07] LABS: Glucose Point of Care 95 mg/dL (70-110)
[2019-07-11] MEDS: sodium chloride 0.9% 1,000 ML 75 ML IV (17:20)
[2019-07-11] MEDS: risperiDONE 2 mg Tablet 4 MG PO (17:21)
[2019-07-11] MEDS: enoxaparin 40 mg/0.4 mL Syringe SUBCUT (17:21)
--- NOTE | 2019-07-11 18:15 | ECG_ITS ---
Measurements Intervals [place] Rate: 96 P: 29 ND: 137 QRS: 76 QRSD: 159 T: 26 QT: 394 QTc: 498 SINUS RHYTHM RIGHT BUNDLE BRANCH BLOCK [120+ ms QRS DURATION, UPRIGHT V1, 40+ ms S IN I/ I/aVL/V4/V5/V6] Compared to ECG 11/07/2018 16:32:57 No significant changes Electronically Signed On 07-12-2019 8:06:27 CDT by Ania Hogan M.D. [email or web address]
[2019-07-11 19:07] LABS: Ammonia 54 umol/L (11-51)
[2019-07-11 19:29] LABS: Lactic Sepsis W/Reflex 1.2 mmol/L (0.5-2.2)
[2019-07-11 19:36] LABS: Free T4 Free Thyroxine 1.77 ng/dL (0.82-1.77); T3 Free 2.1 PG/ML (2.0-4.4)
[2019-07-11] MEDS: ipratropium-albuterol 3 mL Neb INHALATION (20:00)
[2019-07-11 20:15] LABS: Procalcitonin 0.19 ng/mL (0-0.5)
[2019-07-11 20:47] LABS: Glucose Point of Care 102 mg/dL (70-110)
[2019-07-11 20:54] LABS: Anion Gap 24.7 (5-19); Blood Urea Nitrogen 20 mg/dL (8-23); Calcium 8.5 mg/dL (8.5-10.5); Carbon Dioxide 13 mmol/L (22-29); Chloride 94 mmol/L (98-107); Glucose 113 mg/dL (65-115); Osmolality Calculated 265 mOsm/kg (285-295); Sodium 129 mmol/L (136-145)
[2019-07-11 21:04] LABS: Thyroid Stimulating Hormone 0.67 uIU/mL (0.27-4.20)
[2019-07-11 21:29] LABS: Creatine Phosphokinase 2712 U/L (26-192)
[2019-07-11 21:31] LABS: Potassium 2.7 mmol/L (3.5-5.1)
[2019-07-11] MEDS: prazosin 1 mg Capsule PO (21:45)
[2019-07-11] MEDS: donepezil 5 MG Tablet 10 MG PO (21:45)
[2019-07-12] VITALS (13 sets, daily range): BP systolic 118–150; BP diastolic 72–90; PULSE 70–90; RESP 17–20; TEMP 36.2–37.1; O2SAT 95–100
[2019-07-12] MEDS: ipratropium-albuterol 3 mL Neb INHALATION ×4 (02:54→20:31)
[2019-07-12] MEDS: famotidine 20 mg/2 mL INJ IVP ×2 (03:37→15:20)
[2019-07-12] MEDS: sodium chloride 0.9% 1,000 ML 100 ML IV (05:15)
[2019-07-12] MEDS: buPROPion XL (24 HR) 300 mg Tablet PO (05:15)
[2019-07-12 06:03] LABS: Basophils % 0.4 %; Eosinophils % 0.3 %; Hematocrit 34.2 % (37.0-47.0); Hemoglobin 11.4 g/dL (11.5-15.3); Lymphocytes % 12.5 %; Mean Corpuscular HGB Conc 33.3 g/dL (30.0-36.0); Mean Corpuscular Hemoglobin 30.5 pg (28.0-34.0); Mean Corpuscular Volume 91.4 fL (81-99); Mean Platelet Volume 9.4 fL (7.4-10.4); Monocytes # 1.3 10^3/uL (0.2-0.9); Monocytes % 17.1 %; Neutrophils # 5.3 10^3/uL (1.8-7.7); Neutrophils % 68.8 %; Nucleated Red Blood Cells % 0 %; Platelet Count 296 10^3/cmm (130-400); Red Blood Count 3.74 10^6/uL (4.1-5.3); Red Cell Distribution Width 12.6 % (12.1-15.1); White Blood Count 7.7 10^3/uL (4.0-10.0)
[2019-07-12 06:05] LABS: Alanine Aminotransferase 37 U/L (0-33); Albumin Level 3.6 g/dL (3.5-5.2); Alkaline Phosphatase 63 IU/L (35-105); Anion Gap 19.7 (5-19); Aspartate Amino Transferase 82 U/L (0-32); Blood Urea Nitrogen 17 mg/dL (8-23); Calcium 8.8 mg/dL (8.5-10.5); Carbon Dioxide 15 mmol/L (22-29); Chloride 99 mmol/L (98-107); Globulin 2.7 g/dL (1.3-4.6); Glomerular Filtration Rate 37.9 mL/min (90-130); Glucose 92 mg/dL (65-115); Osmolality Calculated 268 mOsm/kg (285-295); Sodium 131 mmol/L (136-145); Total Bilirubin 0.2 mg/dL (0.15-1.2); Total Protein 6.3 g/dL (6.6-8.7)
[2019-07-12 06:13] LABS: Potassium 2.7 mmol/L (3.5-5.1)
[2019-07-12 06:58] LABS: Glucose Point of Care 95 mg/dL (70-110)
[2019-07-12] MEDS: atorvastatin 40 mg Tablet 20 MG PO (09:01)
[2019-07-12] MEDS: escitalopram 10 mg Tablet 20 MG PO (09:01)
[2019-07-12] MEDS: memantine 5 mg tablet 10 MG PO (09:02)
[2019-07-12] MEDS: risperiDONE 2 mg Tablet 4 MG PO ×2 (09:05→17:04)
--- NOTE | 2019-07-12 11:06 | P.PN_ITS ---
Subjective Subjective: Interval history: No acute events overnight. Patient has remained hemodynamically stable, afebrile. Examination today patient is a lot more awake. She is AO x3 but continues to remain fidgety. She complains of bilateral leg pain which is cramping time. Denies of any nausea, vomiting, headache, dizziness, palpitations. Vitals/I&O/Wt Last Vital Signs Temp 98.0 F 07/12/19 07:16 Pulse 78 07/12/19 09:23 Resp 17 07/12/19 09:17 BP 122/82 07/12/19 07:16 Pulse Ox 97 07/12/19 09:17 07/11/19 07/12/19 07/12/19 22:59 06:59 14:59 Intake Total 700 / 2225 1171.25 / 3396.25 240 / 240 Output Total 600 / 600 701 / 1301 Balance 100 / 1625 470.25 / 2095.25 240 / 240 Weight last 48 hrs Weight 96.36 kg Weight 95.254 kg Physical Exam Narrative: EXAM NARRATIVE: General: No acute distress, AAOx3 , Fidgety HEENT: PERRLA, pupils bilaterally equal and reactive Chest: Normal vesicular breath sounds, no added sounds, equal good air entry bilaterally CVS: S1-S2 regular, no murmurs, no tachycardia, no gallops, no rubs Abdomen: Soft, nontender, no organomegaly, bowel sounds present Neuro: No focal deficits, no facial deformity, AO x3, power 5/5 in all limbs Urinary Catheter Management^: Her: Cath Placed During This Visit: yes Reason for Continuing Indwelling Catheter: Other Urinary Catheter Date of Insertion: 07/11/19 Urinary Catheter Time of Insertion: 12:47 Data : 07/12/19 05:45 07/12/19 05:45 A&P Assessment and plan (1) Hypotension: Status: Acute (2) AMS (altered mental status): Status: Acute (3) Dehydration: Status: Acute (4) GEM (acute kidney injury): Status: Acute (5) Hypokalemia: Status: Acute (6) Hyponatremia: Status: Acute (7) Rhabdomyolysis: Status: Acute (8) Increased ammonia level: Status: Acute (9) Major depressive disorder, recurrent, in partial remission: Status: Acute (10) Post-traumatic stress disorder, chronic: Status: Acute (11) Hypertension: Status: Acute (12) Dyslipidemia: Status: Acute Additional A&P Information HTN: Hypotension on admission 2/2 most likely from dehydration because of poor oral intake which is evident from poor renal function, hyponatremia and hypokalemia. BP better now. Will start her on low dose Amlo 5 mg daily now. Keep holding Losartan due to GEM. Continue with normal saline @ 100 cc/hr Continue to monitor blood pressure. Altered mental status: Improving. Most likely because of hyponatremia and borderline elevated ammonia levels which have normalized now. One-to-one sitter. Continue to reorient. For now we will continue on home medications for PTSD, depression to avoid withdrawal. Creatinine clearance 60. Medical reconciliation has been done accordingly. CT head negative for any acute pathology. Procalcitonin TSH within normal limits. Ammonia was elevated yesterday but patient has had 3 episodes of bowel movements and is normalized today. Vitamin B12 and folate levels awaited. No leukocytosis and fever within normal UA and no infiltrate on chest x-ray chances of infection are low so we will hold off on antibiotics for now. GEM: Baseline creatinine 1 year ago was around 1. 1.4 today. Urine studies appreciated. Most likely because of dehydration, rhabdomyolysis and chronic losartan use. Anion 17 and improving. Start patient on sodium bicarbonate 650 mg 3 times daily. It will help with both rhabdomyolysis, GEM as well. Continue to monitor BMP daily. Rhabdomyolysis: CPK 1410 today. Improving. Continue with IV hydration as above. Hyponatremia: Resolved. Most likely secondary to dehydration. But can be SIADH because of chronic psychiatric medications as well. Urine lites studies appreciated. Continue to check BMP daily. Hypokalemia: Replete with 80 mEq oral and 40 mg IV. We will continue other chronic medications. We will change medical therapy as per the results of the test and clinical developments. Full code. Cardiac diet. Heparin 5000 q. 8 for DVT prophylaxis. Care was discussed with Son Sae on [phone]. It was discussed with him that patient has severe the deconditioning and her labs are consistent with d ehydration because of possible chronic poor oral intake. Son agreed and stated he would be best that patient is discharged to SNF for some time for possible rehabilitation due to severe deconditioning. He also states patient's daughter Es (POA)- [phone] is her healthcare proxy. Social service consult for safe discharge. Attestations Medical Necessity Statement*: GEM, altered mental status, rhabdomyolysis, hypokalemia Time Spent in Patient Care: Greater than 35 minutes (>than 50% of time spent in counselling and/or direct pt care on unit) . Coding Level of Care Code Acute Food Production Machine Operator for [facility] Fwd Diagnoses Hypotension I95.9 AMS (altered mental status) R41.82 Dehydration E86.0 GEM (acute kidney injury) N17.9 Hypokalemia E87.6 Hyponatremia E87.1 Rhabdomyolysis M62.82 Increased ammonia level R79.89 Major depressive disorder, recurrent, in partial remission F33.41 Post-traumatic stress disorder, chronic F43.12 Hypertension I10 Dyslipidemia E78.5
[2019-07-12 11:13] LABS: Potassium, Radom Urine 41 mmol/L; Urine Random Chloride 32 mmol/L; Urine Random Sodium 46 mmol/L
[2019-07-12 11:35] LABS: Ammonia 45 umol/L (11-51)
[2019-07-12 11:41] LABS: Creatine Phosphokinase 1410 U/L (26-192)
--- NOTE | 2019-07-12 14:11 | PC.CHAP ---
Pastoral Care Encounter/Spiritual Assessment Type of Contact [] Declined health center manager visit [] Patient/Family/Request visit [] Outpatient visit [] Follow-up visit [] Physician referral [] Code/Alert [X] Routine visit [] Staff referral [] Actively dying [] Patient sleeping [] Family support [] [] Out of room [] Palliative care [] [] Receiving care in room [] Pre-surgical visit [] Trauma [] Long length of stay [] ICU visit [] Other: Relational/Emotional Strength [] Patient feels connected with others/family/visitors/staff [] Distress [] Loneliness/isolation [] Abandonment Spirituality of Patient [] Person of Mar[place]i [] Attends Pentecostalism of their [place] [] Believes in Prayer [] Reads Bible or Jainism materials [] There are Spiritual issues to be addressed [place] Interventions [] Prayer [] Active listening [] Non-anxious presence [] Spiritual/emotional support [] Crisis/trauma care [] Spiritual counseling [] Bereavement support [] Provided bereavement packet [] Provided Bible/devotional materials [] Provided toy/stuffed animal, coloring book to patient or family member [] Provided Communion [] Anointing/[place] [] Salvation [] Completed spiritual assessment [] Other: Impact on Illness or Injury [] Angry [] Fearful [] Anxious [] Often cries [] Exhaustion [] Unable to work [] Unable to attend confucianism [] Unable to walk/stand [] Unable to read [] Unable to drive [] Unable to eat/drink [] Unable to sleep [] Unable to be with family [] Patient intubated [] Other: Summary Time spent with patient
[2019-07-12 15:15] LABS: Vitamin B12 527 pg/mL (232-1245)
[2019-07-12] MEDS: enoxaparin 40 mg/0.4 mL Syringe SUBCUT (15:16)
[2019-07-12] MEDS: sodium bicarbonate 650 mg Tablet PO ×2 (15:16→21:28)
[2019-07-12] MEDS: acetaminophen 325 mg Tablet 650 MG PO (15:22)
[2019-07-12 16:22] LABS: Folate Level 5.2 ng/mL (4.8-37.3)
[2019-07-12] MEDS: ropinirole 0.25 mg Tablet 0.5 MG PO (17:04)
[2019-07-12] MEDS: sodium chlor 0.9% + KCl 20 mEq 20 MEQ/1,000 ML BAG 100 MEQ IV (17:05)
[2019-07-12 21:27] LABS: Glucose Point of Care 106 mg/dL (70-110)
[2019-07-12] MEDS: donepezil 5 MG Tablet 10 MG PO (21:27)
[2019-07-12] MEDS: prazosin 1 mg Capsule PO (21:28)
[2019-07-13] VITALS (13 sets, daily range): BP systolic 136–159; BP diastolic 70–84; PULSE 61–84; RESP 16–20; TEMP 36.6–37.1; O2SAT 95–98
[2019-07-13] MEDS: ipratropium-albuterol 3 mL Neb INHALATION ×4 (02:18→20:21)
[2019-07-13] MEDS: sodium chloride 0.9% 1,000 ML 100 ML IV ×2 (03:36→13:02)
[2019-07-13] MEDS: famotidine 20 mg/2 mL INJ IVP ×2 (03:36→14:37)
[2019-07-13] MEDS: buPROPion XL (24 HR) 300 mg Tablet PO (05:16)
[2019-07-13 06:55] LABS: Glucose Point of Care 91 mg/dL (70-110)
[2019-07-13] MEDS: escitalopram 10 mg Tablet 20 MG PO (09:52)
[2019-07-13] MEDS: ropinirole 0.25 mg Tablet 0.5 MG PO ×2 (09:52→18:32)
[2019-07-13] MEDS: sodium bicarbonate 650 mg Tablet PO ×3 (09:53→21:33)
[2019-07-13] MEDS: memantine 5 mg tablet 10 MG PO (09:53)
[2019-07-13] MEDS: atorvastatin 40 mg Tablet 20 MG PO (09:53)
[2019-07-13] MEDS: risperiDONE 2 mg Tablet 4 MG PO ×2 (09:59→18:32)
--- NOTE | 2019-07-13 11:27 | PM.PN ---
Subjective Subjective: Interval history: No acute events overnight. Patient has remained hemodynamically stable, afebrile. Patient is a lot more awake today, AO x3. Denies of any nausea, vomiting, headache, dizziness. Vitals/I&O/Wt Last Vital Signs Temp 98.0 F 07/13/19 11:06 Pulse 67 07/13/19 11:06 Resp 18 07/13/19 11:06 BP 136/84 07/13/19 11:06 Pulse Ox 95 07/13/19 11:06 07/12/19 07/13/19 07/13/19 22:59 06:59 14:59 Intake Total 1480 / 1820 186.667 / 2006.667 240 / 240 Output Total 700 / 700 1050 / 1750 Balance 780 / 1120 -863.333 / 256.667 240 / 240 Weight last 48 hrs Weight 98.089 kg Weight 96.36 kg Weight 95.254 kg Physical Exam Narrative: EXAM NARRATIVE: General: No acute distress, AAOx3 , Fidgety HEENT: PERRLA, pupils bilaterally equal and reactive Chest: Normal vesicular breath sounds, no added sounds, equal good air entry bilaterally CVS: S1-S2 regular, no murmurs, no tachycardia, no gallops, no rubs Abdomen: Soft, nontender, no organomegaly, bowel sounds present Neuro: No focal deficits, no facial deformity, AO x3, power 5/5 in all limbs Urinary Catheter Management^: Her: Cath Placed During This Visit: yes Reason for Continuing Indwelling Catheter: Other Urinary Catheter Date of Insertion: 07/11/19 Urinary Catheter Time of Insertion: 12:47 Data : 07/12/19 05:45 07/13/19 13:15 Micro: Microbiology 07/11/19 12:48 Urine Culture - Final Urine,Clean Catch A&P Assessment and plan (1) Hypotension: Status: Acute (2) AMS (altered mental status): Status: Acute (3) Dehydration: Status: Acute (4) GEM (acute kidney injury): Status: Acute (5) Hypokalemia: Status: Acute (6) Hyponatremia: Status: Acute (7) Rhabdomyolysis: Status: Acute (8) Increased ammonia level: Status: Acute (9) Major depressive disorder, recurrent, in partial remission: Status: Acute (10) Post-traumatic stress disorder, chronic: Status: Acute (11) Hypertension: Status: Acute (12) Dyslipidemia: Status: Acute Additional A&P Information HTN: Hypotension on admission 2/2 most likely from dehydration because of poor oral intake which is evident from poor renal function, hyponatremia and hypokalemia. BP better now. Will start her on low dose Amlo 5 mg daily now. Keep holding Losartan due to GEM. Continue with normal saline @ 50 cc/hr Continue to monitor blood pressure. Altered mental status: Improving. Most likely because of hyponatremia accumulation on multiple psych medication when patient was having GEM and borderline elevated ammonia levels which have normalized now. Sitter removed yesterday. Continue to hold off on sitter for now. CT head negative for any acute pathology. No leukocytosis and fever within normal UA and no infiltrate on chest x-ray chances of infection are low so we will hold off on antibiotics for now. GEM: Baseline creatinine 1 year ago was around 1. Resolved. Urine studies appreciated. Most likely because of dehydration, rhabdomyolysis and chronic losartan use. Hold off on sodium bicarbonate for now. As anion gap has closed, rhabdomyolysis improving. Continue to monitor BMP daily. Rhabdomyolysis: Improving. Continue with IV hydration as above. Hyponatremia: Resolved. Most likely secondary to dehydration. But can be SIADH because of chronic psychiatric medications as well. Urine lites studies appreciated. Continue to check BMP daily. Hypokalemia: Continues to be hypokalemic. Replete with 40 mEq 3 times today. We will start her on 40 mg daily from tomorrow. We will continue other chronic medications. Full code. Cardiac diet. Heparin 5000 q. 8 for DVT prophylaxis. Care was discussed with Son Sae on [phone]. It was discussed with him that patient has severe the deconditioning and her labs are consistent with dehydration because of possible chronic poor oral intake. Son agreed and stated he would be best that patient is discharged to SNF for some time for possible rehabilitation due to severe deconditioning. He also states patient's daughter Es (JIAN)- [phone] is her healthcare proxy. Social service consult for safe discharge. Attestations Medical Necessity Statement*: Altered mental status, awaiting safe discharge. Time Spent in Patient Care: 16 - 35 minutes Coding Level of Care Code Acute School Library Media Program Director for [facility] Fwpatrice Diagnoses Hypotension I95.9 AMS (altered mental status) R41.82 Dehydration E86.0 GEM (acute kidney injury) N17.9 Hypokalemia E87.6 Hyponatremia E87.1 Rhabdomyolysis M62.82 Increased ammonia level R79.89 Major depressive disorder, recurrent, in partial remission F33.41 Post-traumatic stress disorder, chronic F43.12 Hypertension I10 Dyslipidemia E78.5
[2019-07-13 11:59] LABS: Glucose Point of Care 87 mg/dL (70-110)
[2019-07-13] MEDS: amlodipine 5 mg Tablet PO (13:02)
[2019-07-13 13:56] LABS: Alanine Aminotransferase 29 U/L (0-33); Albumin Level 3.4 g/dL (3.5-5.2); Alkaline Phosphatase 66 IU/L (35-105); Anion Gap 14.8 (5-19); Aspartate Amino Transferase 41 U/L (0-32); Blood Urea Nitrogen 11 mg/dL (8-23); Calcium 9.7 mg/dL (8.5-10.5); Carbon Dioxide 20 mmol/L (22-29); Chloride 105 mmol/L (98-107); Globulin 2.7 g/dL (1.3-4.6); Glomerular Filtration Rate 55.8 mL/min (90-130); Glucose 108 mg/dL (65-115); Osmolality Calculated 281 mOsm/kg (285-295); Sodium 137 mmol/L (136-145); Total Bilirubin 0.2 mg/dL (0.15-1.2); Total Protein 6.1 g/dL (6.6-8.7)
[2019-07-13 14:16] LABS: Creatine Phosphokinase 436 U/L (26-192); Potassium 2.8 mmol/L (3.5-5.1)
--- NOTE | 2019-07-13 14:36 | PC.NURSE ---
Physician notified of potassium of 2.8 and CK of 436, order received to give 120 meq oral x 1 now.
[2019-07-13] MEDS: potassium chloride oral liq 20 mEq/15 mL UDC 40 MEQ PO ×3 (15:01→21:34)
[2019-07-13] MEDS: enoxaparin 40 mg/0.4 mL Syringe SUBCUT (15:04)
[2019-07-13 16:49] LABS: Glucose Point of Care 94 mg/dL (70-110)
[2019-07-13 21:07] LABS: Glucose Point of Care 108 mg/dL (70-110)
[2019-07-13] MEDS: donepezil 5 MG Tablet 10 MG PO (21:33)
[2019-07-13] MEDS: prazosin 1 mg Capsule PO (21:33)
[2019-07-14] VITALS (15 sets, daily range): BP systolic 117–156; BP diastolic 74–86; PULSE 60–75; RESP 16–20; TEMP 36.4–36.9; O2SAT 95–98
[2019-07-14] MEDS: ipratropium-albuterol 3 mL Neb INHALATION ×4 (02:10→20:03)
[2019-07-14] MEDS: buPROPion XL (24 HR) 300 mg Tablet PO (05:39)
[2019-07-14] MEDS: famotidine 20 mg/2 mL INJ IVP (05:39)
[2019-07-14 05:51] LABS: Basophils % 0.5 %; Eosinophils # 0.1 10^3/uL (0.0-0.8); Eosinophils % 3.2 %; Hematocrit 33.2 % (37.0-47.0); Hemoglobin 10.9 g/dL (11.5-15.3); Lymphocytes # 1.2 10^3/uL (0.8-4.8); Lymphocytes % 28.5 %; Mean Corpuscular HGB Conc 32.8 g/dL (30.0-36.0); Mean Corpuscular Hemoglobin 31.3 pg (28.0-34.0); Mean Corpuscular Volume 95.4 fL (81-99); Mean Platelet Volume 9.4 fL (7.4-10.4); Monocytes # 0.8 10^3/uL (0.2-0.9); Monocytes % 17.7 %; Neutrophils # 2.1 10^3/uL (1.8-7.7); Nucleated Red Blood Cells % 0 %; Platelet Count 308 10^3/cmm (130-400); Red Blood Count 3.48 10^6/uL (4.1-5.3); Red Cell Distribution Width 13.9 % (12.1-15.1); White Blood Count 4.4 10^3/uL (4.0-10.0)
[2019-07-14 06:10] LABS: Alanine Aminotransferase 25 U/L (0-33); Albumin Level 3.4 g/dL (3.5-5.2); Alkaline Phosphatase 63 IU/L (35-105); Anion Gap 15.2 (5-19); Aspartate Amino Transferase 30 U/L (0-32); Blood Urea Nitrogen 10 mg/dL (8-23); Calcium 9.9 mg/dL (8.5-10.5); Carbon Dioxide 22 mmol/L (22-29); Chloride 107 mmol/L (98-107); Globulin 2.8 g/dL (1.3-4.6); Glucose 93 mg/dL (65-115); Osmolality Calculated 288 mOsm/kg (285-295); Potassium 3.2 mmol/L (3.5-5.1); Sodium 141 mmol/L (136-145); Total Bilirubin 0.2 mg/dL (0.15-1.2); Total Protein 6.2 g/dL (6.6-8.7)
[2019-07-14 06:14] LABS: Glucose Point of Care 114 mg/dL (70-110)
[2019-07-14 06:15] LABS: Creatine Phosphokinase 233 U/L (26-192)
[2019-07-14] MEDS: sodium chloride 0.9% 1,000 ML 50 ML IV (08:47)
[2019-07-14] MEDS: risperiDONE 2 mg Tablet 4 MG PO ×2 (08:48→16:44)
[2019-07-14] MEDS: escitalopram 10 mg Tablet 20 MG PO (08:48)
[2019-07-14] MEDS: ropinirole 0.25 mg Tablet 0.5 MG PO ×2 (08:48→16:44)
[2019-07-14] MEDS: atorvastatin 40 mg Tablet 20 MG PO (08:48)
[2019-07-14] MEDS: memantine 5 mg tablet 10 MG PO (08:48)
[2019-07-14] MEDS: sodium bicarbonate 650 mg Tablet PO ×3 (08:48→20:12)
[2019-07-14] MEDS: amlodipine 5 mg Tablet PO (08:48)
[2019-07-14 11:09] LABS: Glucose Point of Care 94 mg/dL (70-110)
--- NOTE | 2019-07-14 14:17 | P.PN_ITS ---
Subjective Subjective: Interval history: Chart reviewed, had 1100 mL urine output overnight, VSS, K improving, CPK continues to trend down. Will discontinue IVF. No acute overnight events reported, no apparent distress, SNF placement pending. Medications: Reviewed: Yes Medication Review Details: Active Medications Generic Name Dose Route Start Last Admin Trade Name Freq PRN Reason Stop Dose Admin Acetaminophen 650 mg 07/11/19 15:27 07/12/19 15:22 Tylenol PO 650 mg Q6H PRN Administration Mild/Mod Pain Or Temp >/= 101 Albuterol/Ipratrop ium 3 ml 07/11/19 21:00 07/14/19 14:00 Duoneb INHALATION 3 ml Q6H.RESPIRATORY S CH Administration Amlodipine Besylat e 5 mg 07/13/19 11:30 07/14/19 08:48 Norvasc PO 5 mg DAILY MAN Administration Atorvastatin Calci um 20 mg 07/12/19 09:00 07/14/19 08:48 Lipitor PO 20 mg DAILY MAN Administration Bupropion HCl 300 mg 07/12/19 06:00 07/14/19 05:39 Wellbutrin Xl (2 4 Hr) PO 300 mg QAM MAN Administration Dextrose 25 ml 07/13/19 11:24 D50w IVP ONCE PRN hypoglycemia prot ocol Protocol Dextrose 50 ml 07/13/19 11:24 D50w IVP PRN PRN hypoglycemia prot ocol Protocol Donepezil HCl 10 mg 07/11/19 21:00 07/13/19 21:33 Aricept PO 10 mg BEDTIME MAN Administration Enoxaparin Sodium 40 mg 07/11/19 16:00 07/13/19 15:04 Lovenox SUBCUT 40 mg Q24H MAN Administration Escitalopram Oxala te 20 mg 07/12/19 09:00 07/14/19 08:48 Lexapro PO 20 mg DAILY MAN Administration Famotidine 20 mg 07/11/19 15:27 07/14/19 05:39 Pepcid Inj IVP 20 mg Q12H MAN Administration Glucagon 1 mg 07/13/19 11:24 Glucagen IM ONCE PRN Adult Acute Hypog lycemia Prot. Protocol Sodium Chloride 1,000 mls @ 50 ml s/hr 07/11/19 15:27 07/14/19 08:47 Sodium Chloride 0.9% IV 50 mls/hr .Q20H MAN Administration Dextrose 500 mls @ 100 mls /hr 07/13/19 11:24 D5w IV ONCE PRN Adult Acute Hypog lycemia Prot Protocol Lactulose 10 gm 07/12/19 13:59 Constulose PO Q12H PRN CONSTIPATION Memantine 10 mg 07/12/19 09:00 07/14/19 08:48 Namenda PO 10 mg DAILY MAN Administration Non-Formulary Medi cation 20 mg 07/12/19 09:00 Famotidine PO DAILY MAN Ondansetron HCl 4 mg 07/11/19 15:27 Zofran IVP Q8H PRN vomiting, or N/V if npo Potassium Chloride 40 meq 07/14/19 09:00 07/14/19 08:48 Klor-Con 10 PO 40 meq DAILY MAN Administration Prazosin HCl 1 mg 07/11/19 21:00 07/13/19 21:33 Minipress PO 1 mg BEDTIME MAN Administration Risperidone 4 mg 07/11/19 18:00 07/14/19 08:48 Risperdal PO 4 mg BID MAN Administration Ropinirole HCl 0.5 mg 07/12/19 18:00 07/14/19 08:48 Requip PO 0.5 mg BID MAN Administration Sodium Bicarbonate 650 mg 07/12/19 15:00 07/14/19 08:48 Sodium Bicarbona te PO 650 mg TID MAN Administration doxycycline Allergy (Verified 02/28/19 11:34) Unknown Penicillins Allergy (Verified 02/28/19 11:33) unknown Vitals/I&O/Wt Last Vital Signs Temp 98.3 F 07/14/19 11:32 Pulse 73 07/14/19 14:06 Resp 20 H 07/14/19 14:06 BP 154/84 07/14/19 11:32 Pulse Ox 95 07/14/19 14:06 07/13/19 07/14/19 07/14/19 22:59 06:59 14:59 Intake Total 480 / 960 1240 / 2200 480 / 480 Output Total 900 / 900 1100 / 2000 500 / 500 Balance -420 / 60 140 / 200 -20 / -20 Weight last 48 hrs Weight 96.19 kg Weight 98.089 kg Physical Exam Const: COMMON NORMALS: no acute distress and patient oriented x3 GENERAL APPEARANCE: cooperative and comfortable NUTRITIONAL APPEARANCE: obese morbidly obese ORIENTATION/CONSCIOUSNESS: Yes awake HENMT: COMMON NORMALS: normocephalic, atraumatic, hearing grossly normal bilaterally and moist oral mucous membranes HEAD & SCALP: normocephalic and atraumatic TEETH & GINGIVA: Yes edentulous Eye: COMMON NORMALS: Equal, round and reactive pupils present, EOMs intact bilaterally and conjunctivae normal CONJUNCTIVA: Yes conjunctivae normal PUPIL: Yes Equal, round and reactive pupils present Neck/C-Spine: COMMON NORMALS: full ROM GENERAL: Yes normal visual inspection and Yes trachea midline OTHER: -short, thick neck Resp: COMMON NORMALS: normal respiratory effort, No retractions, No use of accessory muscles and clear to auscultation bilaterally EFFORT & INSPECTION: Yes able to speak in complete sentences, Yes symmetric chest movement and No tachypneic AUSCULTATION: clear to auscultation bilaterally OTHER: -on RA Cardio: COMMON NORMALS: regular rate, regular rhythm, S1 normal heart sound present, S2 normal heart sound present and No murmurs present (Cardio) RATE: regular rate RHYTHM: regular rhythm HEART SOUNDS: S1 normal heart sound present and S2 normal heart sound present GI: COMMON NORMALS: Normal to inspection, nondistended, normoactive bowel sounds present, Soft to palpation and non-tender INSPECTION: Yes central obesity PALPATION: Yes Soft to palpation : BLADDER/KIDNEY EXAM: No catheter in place Extremity: COMMON NORMALS: normal to inspection, full ROM, no clubbing, cyanosis or edema and no pedal edema Neuro: COMMON NORMALS: patient oriented x3, moves all extremities, no focal motor deficits and no sensory deficits noted Psych: COMMON NORMALS: mental status grossly normal, Normal thought process present, cooperative, normal affect and speech normal SPEECH: Yes normal speech THOUGHT PROCESS: Normal thought process present Skin: COMMON NORMALS: no rashes or lesions noted, no jaundice, no petechiae and no mottling GENERAL SKIN EXAM: no rashes or lesions noted HAIR: other (hirsutism) Urinary Catheter Management^: Her: Cath Placed During This Visit: yes, but has since been removed by the nurse Reason for Continuing Indwelling Catheter: Other Urinary Catheter Date of Insertion: 07/11/19 Urinary Catheter Time of Insertion: 12:47 Date Urinary Catheter Removed: 07/13/19 Time Urinary Catheter Discontinued: 20:00 Data : 07/14/19 04:50 07/14/19 04:50 A&P Assessment and plan (1) AMS (altered mental status): -mental status improved, at baseline -off 1:1 monitoring x 24 hrs Status: Resolved Qualifiers: Altered mental status type: unspecified Qualified Code(s): R41.82 - Altered mental status, unspecified (2) Dyslipidemia: -on statin Status: Chronic (3) Hypertension: -VSS, continue to monitor -can resume losartan; hold chlorthalidone Status: Chronic Qualifiers: Hypertension type: essential hypertension Qualified Code(s): I10 - Essential (primary) hypertension (4) Increased ammonia level: Status: Resolved (5) Rhabdomyolysis: -CPK trending down with IVF hydration; down to 233 -renal function normalized -fall precautions -d/c IVF; encourage oral hydration Status: Resolved Qualifiers: Rhabdomyolysis type: non-traumatic Qualified Code(s): M62.82 - Rhabdomyolysis (6) GEM (acute kidney injury): -had GEM on CKD stage 3; baseline Cr appears to be around 1 -GEM now resolved -d/c IVF hydration -avoid nephrotoxins, renally dose meds -Her catheter removed, voiding without difficulty Status: Resolved (7) Hyponatremia: -likely secondary to dehydration -Na normalized Status: Resolved (8) Hypokalemia: -improving with replacement Status: Acute (9) Post-traumatic stress disorder, chronic: Status: Chronic (10) Major depressive disorder, recurrent, in partial remission: -follows up at [facility] [place] Status: Chronic (11) Hypotension: Status: Resolved Qualifiers: Hypotension type: unspecified hypotension type Qualified Code(s): I95.9 - Hypotension, unspecified (12) Dehydration: Status: Resolved Additional A&P Information -Morbid obesity: BMI-39 kg/m2 -ANIKA on CPAP -GI ppx with PPI -DVT ppx with Lovenox -PT evaluation appreciated: skilled therapy recommended -Dispo: working on SNF placement -Code status: FULL code Attestations Medical Necessity Statement*: Patient requires hospitalization for continued care pending appropriate disposition. Time Spent in Patient Care: Greater than 35 minutes (>than 50% of time spent in counselling and/or direct pt care on unit) . Coding Level of Care Code Acute Cost Recorder for [facility] Fwd Exam Comprehensive Diagnoses AMS (altered mental status) R41.82 Altered mental status type: unspecified Dyslipidemia E78.5 Hypertension I10 Hypertension type: essential hypertension Increased ammonia level R79.89 Rhabdomyolysis M62.82 Rhabdomyolysis type: non-traumatic GEM (acute kidney injury) N17.9 Hyponatremia E87.1 Hypokalemia E87.6 Post-traumatic stress disorder, chronic F43.12 Major depressive disorder, recurrent, in partial remission F33.41 Hypotension I95.9 Hypotension type: unspecified hypotension type Dehydration E86.0
--- NOTE | 2019-07-14 14:33 | PC.SOCIAL ---
*IMM* Patient was given the IM from [facility]. Placed in chart. Patient received a copy.
[2019-07-14] MEDS: losartan 50 mg Tablet 25 MG PO (15:19)
--- NOTE | 2019-07-14 15:28 | PC.NURSE ---
cleaned patient's dentures and put them in cup.
[2019-07-14 15:55] LABS: Glucose Point of Care 113 mg/dL (70-110)
[2019-07-14] MEDS: enoxaparin 40 mg/0.4 mL Syringe SUBCUT (16:44)
[2019-07-14] MEDS: donepezil 5 MG Tablet 10 MG PO (20:12)
[2019-07-14] MEDS: prazosin 1 mg Capsule PO (20:25)
[2019-07-14 21:04] LABS: Glucose Point of Care 115 mg/dL (70-110)
[2019-07-15] VITALS (15 sets, daily range): BP systolic 115–160; BP diastolic 68–86; PULSE 57–82; RESP 16–20; TEMP 36.5–37.1; O2SAT 94–98
[2019-07-15] MEDS: ipratropium-albuterol 3 mL Neb INHALATION ×4 (03:09→20:30)
[2019-07-15] MEDS: buPROPion XL (24 HR) 300 mg Tablet PO (06:05)
[2019-07-15 06:24] LABS: Potassium 3.3 mmol/L (3.5-5.1)
[2019-07-15 06:27] LABS: Creatine Phosphokinase 124 U/L (26-192)
[2019-07-15] MEDS: amlodipine 5 mg Tablet PO (09:45)
[2019-07-15] MEDS: atorvastatin 40 mg Tablet 20 MG PO (09:45)
[2019-07-15] MEDS: escitalopram 10 mg Tablet 20 MG PO (09:45)
[2019-07-15] MEDS: ropinirole 0.25 mg Tablet 0.5 MG PO ×2 (09:45→17:32)
[2019-07-15] MEDS: sodium bicarbonate 650 mg Tablet PO ×3 (09:46→19:53)
[2019-07-15] MEDS: losartan 50 mg Tablet 25 MG PO (09:46)
[2019-07-15] MEDS: pantoprazole DR 40 mg Tablet PO (09:47)
[2019-07-15] MEDS: memantine 5 mg tablet 10 MG PO (09:47)
[2019-07-15] MEDS: risperiDONE 2 mg Tablet 4 MG PO ×2 (09:52→17:32)
--- NOTE | 2019-07-15 12:52 | P.PN_ITS ---
Subjective Subjective: Interval history: Had 825 mL urine output overnight, improved K (3.3), CPK normalized. 1 BM today. Patient seen and examined, resting quietly in bed, no apparent distress, no acute overnight events reported. Discharge planning ongoing. Medications: Reviewed: Yes Medication Review Details: Active Medications Generic Name Dose Route Start Last Admin Trade Name Freq PRN Reason Stop Dose Admin Acetaminophen 650 mg 07/11/19 15:27 07/12/19 15:22 Tylenol PO 650 mg Q6H PRN Administration Mild/Mod Pain Or Temp >/= 101 Albuterol/Ipratrop ium 3 ml 07/11/19 21:00 07/15/19 09:16 Duoneb INHALATION 3 ml Q6H.RESPIRATORY S CH Administration Amlodipine Besylat e 5 mg 07/13/19 11:30 07/15/19 09:45 Norvasc PO 5 mg DAILY MAN Administration Atorvastatin Calci um 20 mg 07/12/19 09:00 07/15/19 09:45 Lipitor PO 20 mg DAILY MAN Administration Bupropion HCl 300 mg 07/12/19 06:00 07/15/19 06:05 Wellbutrin Xl (2 4 Hr) PO 300 mg QAM MAN Administration Dextrose 25 ml 07/13/19 11:24 D50w IVP ONCE PRN hypoglycemia prot ocol Protocol Dextrose 50 ml 07/13/19 11:24 D50w IVP PRN PRN hypoglycemia prot ocol Protocol Donepezil HCl 10 mg 07/11/19 21:00 07/14/19 20:12 Aricept PO 10 mg BEDTIME MAN Administration Enoxaparin Sodium 40 mg 07/11/19 16:00 07/14/19 16:44 Lovenox SUBCUT 40 mg Q24H MAN Administration Escitalopram Oxala te 20 mg 07/12/19 09:00 07/15/19 09:45 Lexapro PO 20 mg DAILY MAN Administration Glucagon 1 mg 07/13/19 11:24 Glucagen IM ONCE PRN Adult Acute Hypog lycemia Prot. Protocol Dextrose 500 mls @ 100 mls /hr 07/13/19 11:24 D5w IV ONCE PRN Adult Acute Hypog lycemia Prot Protocol Lactulose 10 gm 07/12/19 13:59 Constulose PO Q12H PRN CONSTIPATION Losartan Potassium 25 mg 07/14/19 14:25 07/15/19 09:46 Cozaar PO 25 mg DAILY MAN Administration Memantine 10 mg 07/12/19 09:00 07/15/19 09:47 Namenda PO 10 mg DAILY MAN Administration Ondansetron HCl 4 mg 07/11/19 15:27 Zofran IVP Q8H PRN vomiting, or N/V if npo Pantoprazole Sodiu m 40 mg 07/15/19 09:00 07/15/19 09:47 Protonix PO 40 mg DAILY MAN Administration Potassium Chloride 40 meq 07/14/19 09:00 07/15/19 09:46 Klor-Con 10 PO 40 meq DAILY MAN Administration Prazosin HCl 1 mg 07/11/19 21:00 07/14/19 20:25 Minipress PO 1 mg BEDTIME MAN Administration Risperidone 4 mg 07/11/19 18:00 07/15/19 09:52 Risperdal PO 4 mg BID MAN Administration Ropinirole HCl 0.5 mg 07/12/19 18:00 07/15/19 09:45 Requip PO 0.5 mg BID MAN Administration Sodium Bicarbonate 650 mg 07/12/19 15:00 07/15/19 09:46 Sodium Bicarbona te PO 650 mg TID MAN Administration doxycycline Allergy (Verified 02/28/19 11:34) Unknown Penicillins Allergy (Verified 02/28/19 11:33) unknown Vitals/I&O/Wt Last Vital Signs Temp 97.9 F 07/15/19 11:02 Pulse 73 07/15/19 11:02 Resp 18 07/15/19 11:02 BP 148/83 07/15/19 11:02 Pulse Ox 95 07/15/19 11:02 07/14/19 07/15/19 07/15/19 22:59 06:59 14:59 Intake Total 816.667 / 1296.667 Output Total 825 / 1825 400 / 2225 500 / 500 Balance -8.333 / -528.333 -400 / -928.333 -500 / -500 Weight last 48 hrs Weight 94.619 kg Weight 96.19 kg Physical Exam Const: COMMON NORMALS: no acute distress and patient oriented x3 GENERAL APPEARANCE: cooperative and comfortable NUTRITIONAL APPEARANCE: obese morbidly obese ORIENTATION/CONSCIOUSNESS: Yes awake HENMT: COMMON NORMALS: normocephalic, atraumatic, hearing grossly normal bilaterally and moist oral mucous membranes HEAD & SCALP: normocephalic and atraumatic TEETH & GINGIVA: Yes edentulous Eye: COMMON NORMALS: Equal, round and reactive pupils present, EOMs intact bilaterally and conjunctivae normal CONJUNCTIVA: Yes conjunctivae normal PUPIL: Yes Equal, round and reactive pupils present Neck/C-Spine: COMMON NORMALS: full ROM GENERAL: Yes normal visual inspection and Yes trachea midline OTHER: -short, thick neck Resp: COMMON NORMALS: normal respiratory effort, No retractions, No use of accessory muscles and clear to auscultation bilaterally EFFORT & INSPECTION: Yes able to speak in complete sentences, Yes symmetric chest movement and No tachypneic AUSCULTATION: clear to auscultation bilaterally OTHER: -on RA Cardio: COMMON NORMALS: regular rate, regular rhythm, S1 normal heart sound present, S2 normal heart sound present and No murmurs present (Cardio) RATE: regular rate RHYTHM: regular rhythm HEART SOUNDS: S1 normal heart sound present and S2 normal heart sound present GI: COMMON NORMALS: Normal to inspection, nondistended, normoactive bowel sounds present, Soft to palpation and non-tender INSPECTION: Yes central obesity PALPATION: Yes Soft to palpation : BLADDER/KIDNEY EXAM: No catheter in place Extremity: COMMON NORMALS: normal to inspection, full ROM, no clubbing, cyanosis or edema and no pedal edema Neuro: COMMON NORMALS: patient oriented x3, moves all extremities, no focal m otor deficits and no sensory deficits noted Psych: COMMON NORMALS: mental status grossly normal, Normal thought process present, cooperative, normal affect and speech normal SPEECH: Yes normal sp eech THOUGHT PROCESS: Normal thought process present Skin: COMMON NORMALS: no rashes or lesions noted, no jaundice, no petechiae and no mottling GENERAL SKIN EXAM: no rashes or lesions noted HAIR: other (hirsutism) Urinary Catheter Management^: Her: Cath Placed During This Visit: yes, but has since been removed by the nurse Reason for Continuing Indwelling Catheter: Other Urinary Catheter Date of Insertion: 07/11/19 Urinary Catheter Time of Insertion: 12:47 Date Urinary Catheter Removed: 07/13/19 Time Urinary Catheter Discontinued: 20:00 Data : 07/14/19 04:50 07/15/19 05:02 A&P Assessment and plan (1) AMS (altered mental status): -mental status at baseline -off 1:1 monitoring x 48 hrs Status: Resolved Qualifiers: Altered mental status type: unspecified Qualified Code(s): R41.82 - Altered mental status, unspecified (2) Dyslipidemia: -on statin Status: Chronic (3) Hypertension: -VSS, continue to monitor -on losartan; continue to hold chlorthalidone Status: Chronic Qualifiers: Hypertension type: essential hypertension Qualified Code(s): I10 - Essential (primary) hypertension (4) Increased ammonia level: Status: Resolved (5) Rhabdomyolysis: -CPK normalized (124) -renal function normalized -fall precautions -off IVF; encourage oral hydration Status: Resolved Qualifiers: Rhabdomyolysis type: non-traumatic Qualified Code(s): M62.82 - Rhabdomyolysis (6) GEM (acute kidney injury): -had GEM on CKD stage 3; baseline Cr appears to be around 1 -GEM now resolved -d/c IVF hydration -avoid nephrotoxins, renally dose meds -Her catheter removed, voiding without difficulty Status: Resolved (7) Hyponatremia: -likely secondary to dehydration -Na normalized Status: Resolved (8) Hypokalemia: -improving with replacement Status: Acute (9) Post-traumatic stress disorder, chronic: Status: Chronic (10) Major depressive disorder, recurrent, in partial remission: -follows up at [facility] Status: Chronic (11) Hypotension: Status: Resolved Qualifiers: Hypotension type: unspecified hypotension type Qualified Code(s): I95.9 - Hypotension, unspecified (12) Dehydration: Status: Resolved Additional A&P Information -Morbid obesity: BMI-38 kg/m2 -ANIKA on CPAP -GI ppx with PPI -DVT ppx with Lovenox -PT evaluation appreciated: skilled therapy recommended -Dispo: working on SNF placement; alternative will be home with HH and family support if available -Code status: FULL code Attestations Medical Necessity Statement*: Patient requires hospitalization pending appropriate disposition. Time Spent in Patient Care: 16 - 35 minutes (>than 50% of time spent in counselling and/or direct pt care on unit) . 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
[2019-07-15] MEDS: potassium chloride oral liq 20 mEq/15 mL UDC 40 MEQ PO (13:19)
[2019-07-15 14:10] LABS: Glucose Point of Care 122 mg/dL (70-110)
[2019-07-15] MEDS: enoxaparin 40 mg/0.4 mL Syringe SUBCUT (15:37)
--- NOTE | 2019-07-15 18:11 | PC.NURSE ---
summary Pt sitting up in chair which she has done most of today. No c/o pain, she said the requip is helping her legs. she is using the wheeled walker and walking to bathroom. Pt had urinated well and had BM which she flushed before I could see it.
[2019-07-15] MEDS: donepezil 5 MG Tablet 10 MG PO (19:53)
[2019-07-15 21:13] LABS: Glucose Point of Care 110 mg/dL (70-110)
[2019-07-16] VITALS (11 sets, daily range): BP systolic 142–155; BP diastolic 83–97; PULSE 61–91; RESP 17–20; TEMP 36.4–36.9; O2SAT 94–99
[2019-07-16] MEDS: ipratropium-albuterol 3 mL Neb INHALATION ×2 (02:40→08:24)
[2019-07-16 06:51] LABS: Glucose Point of Care 105 mg/dL (70-110)
--- NOTE | 2019-07-16 08:36 | PC.SOCIAL ---
IMM Update Pg. 2 of IMM given and explained to patient, who verbalized understanding. Initaled, dated, and timed and placed in chart.
[2019-07-16] MEDS: atorvastatin 40 mg Tablet 20 MG PO (09:31)
[2019-07-16] MEDS: buPROPion XL (24 HR) 300 mg Tablet PO (09:31)
[2019-07-16] MEDS: amlodipine 5 mg Tablet PO (09:31)
[2019-07-16] MEDS: escitalopram 10 mg Tablet 20 MG PO (09:32)
[2019-07-16] MEDS: losartan 50 mg Tablet 25 MG PO (09:32)
[2019-07-16] MEDS: sodium bicarbonate 650 mg Tablet PO ×2 (09:33→15:42)
[2019-07-16] MEDS: memantine 5 mg tablet 10 MG PO (09:33)
[2019-07-16] MEDS: ropinirole 0.25 mg Tablet 0.5 MG PO (09:33)
[2019-07-16] MEDS: pantoprazole DR 40 mg Tablet PO (09:33)
[2019-07-16] MEDS: risperiDONE 2 mg Tablet 4 MG PO (11:12)
--- NOTE | 2019-07-16 13:27 | P.DS_ITS ---
Discharge Providers Date of Admission: 07/11/19 13:37 Date of Discharge: July 16, 2019 Attending Provider at Admission: Alen Johnson MD Attending Provider at Discharge: Estefania Gomez MD Primary Care Provider: Jamaal Blake MD Diagnoses at Discharge Discharge Diagnosis (1) AMS (altered mental status): Status: Resolved Problem details: -mental status at baseline -off 1:1 monitoring x > 48 hrs Qualifiers: Altered mental status type: unspecified Qualified Code(s): R41.82 - Altered mental status, unspecified (2) Dyslipidemia: Status: Chronic Problem details: -on statin (3) Hypertension: Status: Chronic Problem details: -VSS, continue to monitor -on losartan; continue to hold chlorthalidone Qualifiers: Hypertension type: essential hypertension Qualified Code(s): I10 - Essential (primary) hypertension (4) Increased ammonia level: Status: Resolved (5) Rhabdomyolysis: Status: Resolved Problem details: -CPK normalized (124) -renal function normalized -fall precautions -off IVF; encourage oral hydration Qualifiers: Rhabdomyolysis type: non-traumatic Qualified Code(s): M62.82 - Rhabdomyolysis (6) GEM (acute kidney injury): Status: Resolved Problem details: -had GEM on CKD stage 3; baseline Cr appears to be around 1 -GEM now resolved -d/c IVF hydration -avoid nephrotoxins, renally dose meds -Her catheter removed, voiding without difficulty (7) Hyponatremia: Status: Resolved Problem details: -likely secondary to dehydration -Na normalized (8) Hypokalemia: Status: Acute Problem details: -improving with replacement (9) Post-traumatic stress disorder, chronic: Status: Chronic (10) Major depressive disorder, recurrent, in partial remission: Status: Chronic Problem details: -follows up at [facility] (11) Hypotension: Status: Resolved Qualifiers: Hypotension type: unspecified hypotension type Qualified Code(s): I95.9 - Hypotension, unspecified (12) Dehydration: Status: Resolved Other Information Additional DC diagnoses/information: -Morbid obesity: BMI-38 kg/m2 -ANIKA on CPAP Reason for Visit Reason for Visit: Altered mental status, low blood pressure Hospital Course Hospital Course: Patient was admitted to the medical surgical floor and continued on IV fluid hydration secondary to rhabdomyolysis, dehydration, acute kidney injury. Due to degree of confusion, she initially required 1:1 monitoring. Mental status gradually improved and she has since returned to her baseline mental status of alert and oriented x3; sitter discontinued. Due to the aforementioned issues she was quite deconditioned and weak but has done well with therapy with recommendation made to continue skilled therapy. Placement in rehab setting was sought though unsuccessful so patient discharged home with family support as well as home health services including therapy. CPK has normalized, renal function has also normalized and she has been able to tolerate oral intake without difficulty so IV fluid hydration discontinued. She has been hemodynamically stable, afebrile. Once mental status had improved Her c atheter was discontinued and she has been able to void independently without difficulty. Electrolytes were replaced as needed. Hemoglobin has been stable and she has not required transfusion of any blood products. She will need to continue to follow-up with her primary care provider. Is advised to seek medical attention immediately should any of her symptoms return. Discharge Summary: -Patient to continue to follow up at [facility] -Patient to follow up with primary care provider within 1 week Physical Exam Const: COMMON NORMALS: no acute distress and patient oriented x3 GENERAL APPEARANCE: cooperative and comfortable NUTRITIONAL APPEARANCE: obese morbidly obese ORIENTATION/CONSCIOUSNESS: Yes awake HENMT: COMMON NORMALS: normocephalic, atraumatic, hearing grossly normal bilaterally and moist oral mucous membranes HEAD & SCALP: normocephalic and atraumatic TEETH & GINGIVA: Yes edentulous Eye: COMMON NORMALS: Equal, round and reactive pupils present, EOMs intact bilaterally and conjunctivae normal CONJUNCTIVA: Yes conjunctivae normal PUPIL: Yes Equal, round and reactive pupils present Neck/C-Spine: COMMON NORMALS: full ROM GENERAL: Yes normal visual inspection and Yes trachea midline OTHER: -short, thick neck Resp: COMMON NORMALS: normal respiratory effort, No retractions, No use of accessory muscles and clear to auscultation bilaterally EFFORT & INSPECTION: Yes able to speak in complete sentences, Yes symmetric chest movement and No tachypneic AUSCULTATION: clear to auscultation bilaterally OTHER: -on RA Cardio: COMMON NORMALS: regular rate, regular rhythm, S1 normal heart sound present, S2 normal heart sound present and No murmurs present (Cardio) RATE: regular rate RHYTHM: regular rhythm HEART SOUNDS: S1 normal heart sound present and S2 normal heart sound present GI: COMMON NORMALS: Normal to inspection, nondistended, normoactive bowel sounds present, Soft to palpation and non-tender INSPECTION: Yes central obesity PALPATION: Yes Soft to palpation : BLADDER/KIDNEY EXAM: No catheter in place Extremity: COMMON NORMALS: normal to inspection, full ROM, no clubbing, cyanosis or edema and no pedal edema Neuro: COMMON NORMALS: patient oriented x3, moves all extremities, no focal motor deficits and no sensory deficits noted Psych: COMMON NORMALS: mental status grossly normal, Normal thought process present, cooperative, normal affect and speech normal SPEECH: Yes normal speech THOUGHT PROCESS: Normal thought process present Skin: COMMON NORMALS: no rashes or lesions noted, no jaundice, no petechiae and no mottling GENERAL SKIN EXAM: no rashes or lesions noted HAIR: other (hirsutism) Urinary Catheter Management^: Her: Cath Placed During This Visit: yes, but has since been removed by the nurse Reason for Continuing Indwelling Catheter: Other Urinary Catheter Date of Insertion: 07/11/19 Urinary Catheter Time of Insertion: 12:47 Date Urinary Catheter Removed: 07/13/19 Time Urinary Catheter Discontinued: 20:00 Discharge Data Data Completed and Pending: Completed Studies During Hospitalization Category Date Time Status CT head wo con* [id number] 0450 Stat Cat Scan 07/11/19 11:37 Completed XR chest 1V buck ble [id number] Stat Exams 07/11/19 11:37 Completed Labs from last 24 hours 07/16/19 07/15/19 07/15/19 06:37 20:02 14:06 POC Glucose 105 110 122 Vitals: Last Vital Signs Temp 98.4 F 07/16/19 07:10 Pulse 68 07/16/19 11:32 Resp 18 07/16/19 11:32 BP 149/97 07/16/19 11:32 Pulse Ox 98 07/16/19 11:32 Discharge Plan Discharge Patient Disposition: Home Health Service Condition: Stable Prescriptions: New amlodipine 5 mg Tablet 5 mg PO DAILY 30 Days Qty: 30 RF: 0 Ventolin HFA 90 mcg/actuation HFA aerosol inhaler 2 inh INHALATION Q6H PRN (Reason: shortness of breath or wheezing) Qty: 8.5 RF: 0 Continued atorvastatin 20 mg Tablet 20 mg PO DAILY 30 Days Qty: 30 RF: 0 Risperdal 4 mg tablet 4 mg PO BID 30 Days Qty: 60 RF: 0 Aricept 10 mg tablet 10 mg PO BEDTIME 30 Days Qty: 30 RF: 0 famotidine 20 mg Tablet 20 mg PO DAILY 30 Days Qty: 30 RF: 0 trazodone 150 mg tablet 150 mg PO BEDTIME 30 Days Qty: 30 RF: 0 ropinirole 0.5 mg tablet 0.5 mg PO BID 30 Days Qty: 60 RF: 0 montelukast 10 mg Tablet 10 mg PO DAILY 30 Days Qty: 30 RF: 0 ergocalciferol (vitamin D2) 1,250 mcg (50,000 unit) Capsule 1,250 mcg PO Q7D Qty: 4 RF: 0 Lexapro 20 mg tablet 20 mg PO DAILY 30 Days Qty: 30 RF: 0 Wellbutrin XL 300 mg tablet extended release 24 hr 300 mg PO QAM 30 Days Qty: 30 RF: 0 Namenda 10 mg tablet 10 mg PO DAILY 30 Days Qty: 30 RF: 0 Anoro Ellipta 62.5-25 mcg/actuation Blister With Device 1 inh INHALATION BID Qty: 60 RF: 0 Changed losartan 25 mg Tablet 25 mg PO DAILY 30 Days Qty: 30 RF: 0 potassium chloride 20 mEq Tablet Extended Release 40 meq PO DAILY 30 Days Qty: 60 RF: 0 Discontinued chlorthalidone 25 mg Tablet 25 mg PO DAILY RF: 0 prazosin 1 mg capsule 1 mg PO BEDTIME RF: 0 Discharge Orders: Discharge Order (Routine); Ordered 07/16/19 Ordered By: Estefania Gomez Referrals: Jamaal Blake MD [Primary Care Provider] - 07/21/19 10:15 am (Post hospital discharge follow up. ) Discharge Diet: Diabetic Discharge Activity: Increase activity as tolerated and As per PT/OT instructions Discharge Attestations Time Spent in Discharge Care*: greater than 30 min Specific Discharge Activities: Specific discharge activities: educating patient, discussing with ed case manager/social workers/dc planners, documenting/other paperwork and evaluating patient/reviewing data Status at Discharge: Cognitive status at discharge: cognitively intact , Behavioral status at discharge: cooperative , Functional status at discharge: uses cane/walker Overall status at discharge: patient is progressing back to baseline Quality Metrics Clinical Quality Measures During this hospital stay, did patient experience: None Coding Level of Care Code 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
[2019-07-16] MEDS: enoxaparin 40 mg/0.4 mL Syringe SUBCUT (15:42)
== END 2019-07-16 16:59 | disposition home health service (06) | DRG 683 ==
LOC: ER 12:10 → MEDSURG 14:50
PROVIDERS: Emergency Medicine; Admitting Provider Student in an Organized Health Care Education/Training Program; PCP Family Medicine; Visit Provider Family Medicine
DX: N17.9 Acute kidney failure, unspecified (principal); M62.82 Rhabdomyolysis; E87.1 Hypo-osmolality and hyponatremia; E86.0 Dehydration; N18.3 Chronic kidney disease, stage 3 (moderate); I12.9 Hypertensive chronic kidney disease with stage 1 through stage 4 chronic kidney disease, or unspecified chronic kidney disease; F33.41 Major depressive disorder, recurrent, in partial remission; I95.9 Hypotension, unspecified; E87.6 Hypokalemia; G47.33 Obstructive sleep apnea (adult) (pediatric); E66.01 Morbid (severe) obesity due to excess calories; Z68.38 Body mass index [BMI] 38.0-38.9, adult; F43.12 Post-traumatic stress disorder, chronic; Z87.891 Personal history of nicotine dependence
CPT/HCPCS: 12345; 36415; 36416; 36600; 51702; 70450; 71045; 80048; 80053; 80306; 80307; 81001; 82140; 82436; 82550; 82607; 82746; 82803; 82962; 83605; 83735; 83880; 84132; 84133; 84145; 84300; 84439; 84443; 84481; 85025; 85378; 85610; 85651; 86140; 87086; 93005; 94640; 96372; 96375; 97110; 97116; 97162; 97530; 99283; J1650; J2060; J3475; J3480; J3486; J3490; J7030; J7040

== ENCOUNTER 2019-07-22 08:42 | Outpatient (CLI) | payer MEDICARE, MEDICAID, SELFPAY ==
--- NOTE | 2019-07-22 | US_ITS ---
WS: [id number] Gallbladder ultrasound, 07/22/2019 Clinical Data: INCREASED AMMONIA LEVEL Comparison: None. Findings: The gallbladder shows stones. The wall measures 2.1 cm with no pericholecystic fluid. The common bile duct is 3.2 cm and there are no intrahepatic ductal abnormalities. Liver shows no cysts, masses or dilated intrahepatic ducts. The pancreas is not obscured by overlying bowel gas and no cyst, pseudocyst, or evidence of pancreati tis is noted. The pancreas is slightly hyperechoic. Right kidney measures 10.7 cm with a small cyst in the upper pole measuring 1.7 x 1.8 x 1.9 cm. The a angel and inferior vena cava show no vascular abnormalities. US/US liver [id number] Impression: Cholelithiasis.
== END 2019-07-22 08:43 | disposition home or self-care (01) ==
LOC: RADOUTREAD 10:15
PROVIDERS: Family Provider Family Medicine; PCP Family Medicine; Visit Provider Family Medicine
DX: R79.89 Other specified abnormal findings of blood chemistry (principal); K80.20 Calculus of gallbladder without cholecystitis without obstruction
CPT/HCPCS: 76705

== ENCOUNTER 2019-09-21 20:08 | Observation (INO) | payer MEDICARE, MEDICAID, SELFPAY ==
[2019-09-21 20:10] VITALS: BMI 32.9
--- NOTE | 2019-09-21 20:12 | CTR_ITS ---
PROCEDURE INFORMATION: Exam: CT Head Without Contrast Exam date and time: 09/21/2019 8:14 PM Age: 64 years old Clinical indication: Alteration of consciousness and speech disturbance and weakness, extremity; Bilateral; Transient alteration of awareness; Patient HX: Sudden onset extremity weakness and aphasia; Additional info: Symptoms of acute stroke TECHNIQUE: Imaging protocol: Computed tomography of the head without contrast. Radiation optimization: All CT scans at this facility use at least one of these dose optimization techniques: automated exposure control; mA and/or kV adjustment per patient size (includes targeted exams where dose is matched to clinical indication); or iterative reconstruction. Other technique: STROKE PROTOCOL was implemented. 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 No hemorrhage or CT evidence of acute infarction is seen. Ventricles: Normal. No ventriculomegaly. Bones/joints: Unremarkable. No acute fracture. Sinuses: Visualized sinuses are unremarkable. No fluid levels. Mastoid air cells: Visualized mastoid air cells are well aerated. Soft tissues: Unremarkable. CT/CT head wo con* [id number] IMPRESSION: No acute intracranial abnormality. ASSESSMENT: ASPECTS (Ketty Stroke Program Early CT Score) is 10. Radiation Dose CTDIVOL = (mGy): DLP = 859.55 (mGy-cm)
--- NOTE | 2019-09-21 20:12 | ECG_ITS ---
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 Measurements Intervals [place] Rate: 69 P: 51 IA: 129 QRS: 4 QRSD: 153 T: 26 QT: 471 QTc: 507 Interpretive Statements SINUS RHYTHM RIGHT BUNDLE BRANCH BLOCK [120+ ms QRS DURATION, UPRIGHT V1, 40+ ms S IN I/aVL/V4/V5/V6] Compared to ECG 07/11/2019 11:46:20 No significant changes Electronically Signed On 09-22-2019 18:57:51 CDT by Pinky Larson M.D. [email or web address]
--- NOTE | 2019-09-21 20:22 | ED_ITS ---
HPI - Neuro Symptoms/Deficit General: Chief Complaint: Neuro Symptoms/Deficit Stated Complaint: stroke like symptoms Time Seen by Provider: 09/21/19 20:12 History of Present Illness: HPI Narrative: 64-year-old female with history of dementia. No specific history of stroke that we know of. She presents around 80 minutes following onset of slumping to the left side, becoming non-talkative, being weak, and not acting herself at home while eating chili with family. On arrival, she answer some questions, but only simple one-word answers. She does not complain of any pain. She is somewhat of a poor historian, and is not cooperating well with exam. Onset (ago): hour(s) Last Observed Normal: 18:57 Review of Systems General: Reports: ROS unobtainable due to mental status PFS ED PFSH: Medical History (Updated 09/22/19 @ 01:41 by Tanja Washington MD) COPD (chronic obstructive pulmonary disease) diagnosis as per patient, remote smoker, PFTs without demonstrated obstructive component 02/24 Dementia Dyslipidemia History of pulmonary function tests (~02/2019) mild restrictive ventilatory defect, improved with bronchodilator, elevated RV/TLC, nl DLCO Hypertension Major depressive disorder, recurrent, in partial remission Obesity (BMI 30.0-34.9) Post-traumatic stress disorder, chronic Restless leg syndrome Vitamin D deficiency Surgical History (Updated 09/21/19 @ 23:44 by Tanja Washington MD) History of carpal tunnel release History of hysterectomy Family History (Updated 09/21/19 @ 23:41 by Tanja Washington MD) Other Psychiatric illness Social History (Updated 09/21/19 @ 23:41 by Tanja Washington MD) Smoking and tobacco status: former smoker Household members: family Current occupational status: disabled NIH stroke score NIHSS: Level Of Consciousness - 1a: 1 Level Of Consciousness Questions - 1b : One Correct Level Of Consciousness Commands - 1c: One Correct Best Gaze - 2: Normal Visual Roque - 3: No Visual Loss Facial Palsy - 4: Partial Paralysis Motor Arm Right - 5: Effort Against Roby Motor Arm Left - 5: Effort Against Roby Motor Leg Right - 6: Effort Against Roby Motor Leg Left - 6: Effort Against Roby Limb Ataxia - 7: Present In Two Limbs Sensory - 8: Normal Best Language - 9: Mild/Moderate Aphasia Dysarthia - 10: Mild/Moderate Dysarthia Extinction And Inattention - 11: 0 Score: Total Score: 17 Physical Exam Const: GENERAL APPEARANCE: well developed and lethargic ORIENTATION/CONSCIOUSNESS: Yes oriented to person and Yes lethargic; not oriented to place and not oriented to time HENMT: COMMON NORMALS: normocephalic, external ears normal and Normal external nose present HEAD & SCALP: normocephalic NOSE: Normal external nose present and No nasal discharge present EXTERNAL EAR: Yes external ears normal Eye: COMMON NORMALS: Equal, round and reactive pupils present, EOMs intact bilaterally and conjunctivae normal EYELID: eyelids normal CONJUNCTIVA: Yes conjunctivae normal PUPIL: Yes Equal, round and reactive pupils present Neck/C-Spine: GENERAL: No tracheal deviation Chest: COMMONS NORMALS: normal inspection of the chest CHEST: No tenderness Resp: COMMON NORMALS: clear to auscultation bilaterally EFFORT & INSPECTION: No tachypneic, No respiratory distress, No retractions, No uses accessory muscles and No tracheal deviation AUSCULTATION: clear to auscultation bilaterally, no rhonchi, no wheezes and lung sounds not diminished Cardio: COMMON NORMALS: regular rate and regular rhythm RATE: regular rate RHYTHM: regular rhythm HEART SOUNDS: no murmurs PERIPHERAL PULSES: radial pulses present GI: INSPECTION: No abdominal distension AUSCULTATION: No Hyperactive bowel sounds present and No Hypoactive bowel sounds present PALPATION: No Guarding due to palpation present (GI) and No Rigid due to palpation PERCUSSION: no dullness to percussion and no tympanic to percussion Neuro: SENSORIUM/ORIENTATION: Yes oriented to person, No oriented to place, No oriented to time and Yes lethargic CRANIAL NERVES: Yes CN VII (facial) Laterality: left CN VII left: facial droop COORDINATION/BALANCE: No [id number] test normal and No [id number] test normal SPEECH: abnormal speech Details: slurred GAIT: Yes Unable to assess gait MOTOR EXAM: Abnormal motor strength present COORDINATION: [id number] test abnormal and [id number] test abnormal Psych: APPEARANCE: Yes unkempt ATTITUDE: Yes calm ACTIVITY/MOTOR BEHAVIOR: Yes psychomotor slowing SPEECH: Yes minimal, Yes slow and Yes slurred ATTENTION/CONCENTRATION: Yes concentration grossly impaired MEMORY/COGNITION: Yes memory grossly impaired Skin: COMMON NORMALS: no rashes or lesions noted GENERAL SKIN EXAM: no rashes or lesions noted Course Consultations: Consultation #1: Padmini Time: 22:23 Vital Signs: Vital signs: Vital Signs Temperature 97.7 F 09/22/19 00:38 Pulse Rate 89 09/22/19 02:33 Respiratory Rate 17 09/22/19 00:38 Blood Pressure 124/74 09/22/19 00:38 Pulse Oximetry 95 09/22/19 02:33 MDM - Neuro Symptoms/Deficit MDM Narrative: Medical decision making narrative: 64-year-old female presents with sudden onset of what appeared to be weakness, decreased mental status, trouble with speech. Her NIH scale on arrival was high, but I believe this is largely due to inadequate participation. Stroke alert was called, and TPA was considered. The patient went to CT, no evidence of intracranial hemorrhage. She went back to CTA at neurologist's request, which shows some moderate stenosis of the left ICA. There is no acute occlusion apparent. After the patient returned from CT, she began to move around more. She has become more talkative. She does have a history of dementia. Her daughter showed up, who sees her often, and reports that she is very near her baseline. Her potassium is 2.5. Her creatinine is 1.3 which is not far off of her baseline. She has a history of hyponatremia, and currently sodium is 132. Her initial blood pressure here was normotensive, followed by a couple of low pressures. Blood pressure currently is 105/81. We have begun to replete her potassium. The patient has had a couple of sips of water, and is therefore been given oral pota ssium as well as IV potassium. Because of the severity of the episode, and the low potassium, she will be observed. Lab Data: Labs: Lab Results 09/21/19 09/21/19 09/21/19 Range/Units 20:09 20:09 20:09 WBC 4.6 (4.0-10.0) 10^3/ uL RBC 4.00 L (4.1-5.3) 10^6/u L Hgb 12.0 (11.5-15.3) g/dL Hct 35.4 L (37.0-47.0) % MCV 88.5 (81-99) fL MCH 30.0 (28.0-34.0) pg MCHC 33.9 (30.0-36.0) g/dL RDW 12.7 (12.1-15.1) % Plt Count 435 H (130-400) 10^3/c mm MPV 9.1 (7.4-10.4) fL Neut % (Auto) 55.9 % Lymph % (Auto) 24.3 % Lagrange % (Auto) 17.0 % Eos % (Auto) 0.9 % Baso % (Auto) 0.4 % Neut # (Auto) 2.57 (1.8-7.7) 10^3/u L Lymph # (Auto) 1.1 (0.8-4.8) 10^3/u L Lag[place] # (Auto) 0.8 (0.2-0.9) 10^3/u L Eos # (Auto) 0.0 (0.0-0.8) 10^3/u L Baso # (Auto) 0.0 (0.0-0.1) 10^3/u L Nucleated RBC % (a uto) 0 % Nucleated RBCs # 0.0 /100WBC PT 13.60 (12.1-14.9) SECO NDS INR 1.01 (0.8-1.2) APTT 26.4 (23.9-36.7) SECO NDS Sodium 132 L (136-145) mmol/L Potassium 2.5 L* (3.5-5.1) mmol/L Chloride 97 L (98-107) mmol/L Carbon Dioxide 24 (22-29) mmol/L Anion Gap 13.5 (5-19) BUN 18 (8-23) mg/dL Creatinine 1.3 H (0.5-0.9) mg/dL GFR Calculation 41.1 L (90-130) mL/min Glucose 100 (65-115) mg/dL Calculated Osmolal ity 271 L (285-295) mOsm/k g Calcium 9.6 (8.5-10.5) mg/dL Magnesium (1.7-2.3) mg/dL Total Bilirubin 0.2 (0.15-1.2) mg/dL AST 29 (0-32) U/L ALT 21 (0-33) U/L Alkaline Phosphata se 62 (35-105) IU/L Total Protein 6.9 (6.6-8.7) g/dL Albumin 4.4 (3.5-5.2) g/dL Globulin 2.5 (1.3-4.6) g/dL Urine Color (Yellow) Urine Appearance (CLEAR) Urine pH (5-7) Ur Specific Gravit y (1.005-1.030) Urine Protein (Negative) Urine Glucose (UA) (Normal) Urine Ketones (Negative) Urine Blood (Negative) Urine Nitrate (Negative) Urine Bilirubin (NEGATIVE) Urine Urobilinogen (Negative) mg/dL Ur Leukocyte Chelsey ase (Negative) Urine RBC (0-2) /hpf Urine WBC (0-5) /hpf Ur Squamous Epith Cells (0-5) Amorphous Sediment Urine Bacteria (NONE) Hyaline Casts Urine Mucus 09/21/19 09/21/19 Range/Units 20:09 20:50 WBC (4.0-10.0) 10^3/ uL RBC (4.1-5.3) 10^6/u L Hgb (11.5-15.3) g/dL Hct (37.0-47.0) % MCV (81-99) fL MCH (28.0-34.0) pg MCHC (30.0-36.0) g/dL RDW (12.1-15.1) % Plt Count (130-400) 10^3/c mm MPV (7.4-10.4) fL Neut % (Auto) % Lymph % (Auto) % Lagrange % (Auto) % Eos % (Auto) % Baso % (Auto) % Neut # (Auto) (1.8-7.7) 10^3/u L Lymph # (Auto) (0.8-4.8) 10^3/u L Lagrange # (Auto) (0.2-0.9) 10^3/u L Eos # (Auto) (0.0-0.8) 10^3/u L Baso # (Auto) (0.0-0.1) 10^3/u L Nucleated RBC % (a uto) % Nucleated RBCs # /100WBC PT (12.1-14.9) SECO NDS INR (0.8-1.2) APTT (23.9-36.7) SECO NDS Sodium (136-145) mmol/L Potassium (3.5-5.1) mmol/L Chloride (98-107) mmol/L Carbon Dioxide (22-29) mmol/L Anion Gap (5-19) BUN (8-23) mg/dL Creatinine (0.5-0.9) mg/dL GFR Calculation (90-130) mL/min Glucose (65-115) mg/dL Calculated Osmolal ity (285-295) mOsm/k g Calcium (8.5-10.5) mg/dL Magnesium 2.2 (1.7-2.3) mg/dL Total Bilirubin (0.15-1.2) mg/dL AST (0-32) U/L ALT (0-33) U/L Alkaline Phosphata se (35-105) IU/L Total Protein (6.6-8.7) g/dL Albumin (3.5-5.2) g/dL Globulin (1.3-4.6) g/dL Urine Color Yellow (Yellow) Urine Appearance Sl cloudy A (CLEAR) Urine pH 6 (5-7) Ur Specific Gravit y 1.015 (1.005-1.030) Urine Protein Neg (Negative) Urine Glucose (UA) Norm (Normal) Urine Ketones Negative (Negative) Urine Blood 2+ H (Negative) Urine Nitrate Negative (Negative) Urine Bilirubin 1+ H (NEGATIVE) Urine Urobilinogen Norm (Negative) mg/dL Ur Leukocyte Chelsey ase Negative (Negative) Urine RBC 5-10 H (0-2) /hpf Urine WBC 15-25 H (0-5) /hpf Ur Squamous Epith Cells 0-4 H (0-5) Amorphous Sediment Trace Urine Bacteria Trace (NONE) Hyaline Casts 5-10 H Urine Mucus Trace Discharge Plan Discharge Patient Disposition: Placed in Observation Admit Provider: Tanja Washington Clinical Impression: Acute alteration in mental status, Acute hypokalemia Condition: Stable Referrals: Jamaal Blake MD [Primary Care Provider] - Discharge Date/Time: 09/22/19 00:43 Coding Level of Care Code 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
[2019-09-21 20:23] VITALS: BP 108/56; PULSE 67; RESP 15; O2SAT 95
[2019-09-21 20:34] LABS: Basophils % 0.4 %; Eosinophils % 0.9 %; Hematocrit 35.4 % (37.0-47.0); Lymphocytes # 1.1 10^3/uL (0.8-4.8); Lymphocytes % 24.3 %; Mean Corpuscular HGB Conc 33.9 g/dL (30.0-36.0); Mean Corpuscular Volume 88.5 fL (81-99); Mean Platelet Volume 9.1 fL (7.4-10.4); Monocytes # 0.8 10^3/uL (0.2-0.9); Neutrophils # 2.57 10^3/uL (1.8-7.7); Neutrophils % 55.9 %; Nucleated Red Blood Cells % 0 %; Platelet Count 435 10^3/cmm (130-400); Red Cell Distribution Width 12.7 % (12.1-15.1); White Blood Count 4.6 10^3/uL (4.0-10.0)
[2019-09-21 20:37] LABS: INR 1.01 (0.8-1.2)
[2019-09-21 20:38] LABS: Partial Thromboplastin Time 26.4 SECONDS (23.9-36.7)
--- NOTE | 2019-09-21 20:42 | CTR_ITS ---
PROCEDURE INFORMATION: Exam: CT Angiography Head With Contrast Exam date and time: 09/21/2019 8:43 PM Age: 64 years old Clinical indication: Speech disturbance and weakness; Patient HX: Weakness, aphasia; Additional info: AMS, weakness TECHNIQUE: Imaging protocol: Computed tomography angiography of the head with intravenous contrast. 3D rendering: MIP and/or 3D reconstructed images were created by the technologist. Radiation optimization: All CT scans at this facility use at least one of these dose optimization techniques: automated exposure control; mA and/or kV adjustment per patient size (includes targeted exams where dose is matched to clinical indication); or iterative reconstruction. Contrast material: VISI 320; Contrast volume: 95 ml; Contrast route: INTRAVENOUS (IV); COMPARISON: CTA Head/Neck [id number] 11/07/2018 4:14 PM RADIATION DOSE METRICS: Total DLP (mGy-cm): 1954.87 FINDINGS: ANTERIOR CIRCULATION: Right internal carotid artery: Calcified plaque causes mild stenosis of the right carotid siphon. No aneurysm, dissection or occlusion. Right middle cerebral artery: Unremarkable. No occlusion or significant stenosis. No aneurysm. Right anterior cerebral artery: Unremarkable. No occlusion or significant stenosis. No aneurysm. Left internal carotid artery: Calcified plaque is observed in the left carotid siphon. No significant stenosis. No aneurysm. Left middle cerebral artery: Unremarkable. No occlusion or significant stenosis. No aneurysm. Left anterior cerebral artery: Unremarkable. No occlusion or significant stenosis. No aneurysm. POSTERIOR CIRCULATION: Right vertebral artery: Unremarkable. No occlusion or significant stenosis. No aneurysm. Left vertebral artery: Unremarkable. No occlusion or significant stenosis. No aneurysm. Basilar artery: Unremarkable. No occlusion or significant stenosis. No aneurysm. Right posterior cerebral artery: Unremarkable. No occlusion or significant stenosis. No aneurysm. Left posterior cerebral artery: Unremarkable. No occlusion or significant stenosis. No aneurysm. IMPRESSION: Mild stenosis of the right carotid siphon. Otherwise, the intracranial arteries are patent. PROCEDURE INFORMATION: Exam: CT Angiography Neck With Contrast Exam date and time: 09/21/2019 8:43 PM Age: 64 years old Clinical indication: Speech disturbance and weakness; Patient HX: Weakness, aphasia; Additional info: AMS, weakness TECHNIQUE: Imaging protocol: Computed tomography angiography of the neck with intravenous contrast. 3D rendering: MIP and/or 3D reconstructed images were created by the technologist. Radiation optimization: All CT scans at this facility use at least one of these dose optimization techniques: automated exposure control; mA and/or kV adjustment per patient size (includes targeted exams where dose is matched to clinical indication); or iterative reconstruction. Contrast material: VISI 320; Contrast volume: 95 ml; Contrast route: INTRAVENOUS (IV); COMPARISON: CTA Head/Neck [id number] 11/07/2018 4:14 PM RADIATION DOSE METRICS: Total DLP (mGy-cm): 1954.87 FINDINGS: Right common carotid artery: No stenosis. No dissection or occlusion. Right internal carotid artery: Calcified plaque causes mild stenosis of the proximal right ICA. Right external carotid artery: Mild stenosis of the proximal right ECA is appreciated. Right vertebral artery: No stenosis. No dissection or occlusion. Left common carotid artery: No stenosis. No dissection or occlusion. Left internal carotid artery: Atherosclerotic plaque causes moderate stenosis of the proximal left ICA. Left external carotid artery: No occlusion or stenosis of the origin. Left vertebral artery: No stenosis. No dissection or occlusion. Thyroid: Hypodense thyroid lesions are again noted, which appear stable. The largest lesion measures 17 mm. Bones/joints: No acute fracture. Soft tissues: Normal. No significant soft tissue swelling. CT/CT angio headneck* [id number] IMPRESSION: 1. Moderate proximal left ICA stenosis. 2. Mild stenoses of the proximal right ICA and proximal right ECA. 3. Stable hypodense thyroid lesions. COMMENTS: Consistent with the [employer]'s Incidental Findings Committee white paper (J Am Lukas Radiol 2015): In patients aged 35 years and older with an incidental thyroid nodule equal to or greater than 1.[address], MRI or extrathyroidal US, further evaluation with dedicated thyroid US is recommended for patients with normal life expectancy and without comorbidities. For smaller nodules without suspicious features, no further evaluation or follow up is recommended. REFERENCES: NASCET CRITERIA. The degree of internal carotid artery stenosis is based on NASCET criteria. Normal is no stenosis. Mild is less than 50% stenosis. Moderate is 50-69% stenosis. Severe is 70% to 99% stenosis. Total occlusion is no detectable patent lumen. Radiation Dose CTDIVOL = (mGy): DLP = 1954.87~1954.87 (mGy-cm)
[2019-09-21 20:43] LABS: Alanine Aminotransferase 21 U/L (0-33); Albumin Level 4.4 g/dL (3.5-5.2); Alkaline Phosphatase 62 IU/L (35-105); Aspartate Amino Transferase 29 U/L (0-32); Blood Urea Nitrogen 18 mg/dL (8-23); Calcium 9.6 mg/dL (8.5-10.5); Carbon Dioxide 24 mmol/L (22-29); Chloride 97 mmol/L (98-107); Globulin 2.5 g/dL (1.3-4.6); Glomerular Filtration Rate 41.1 mL/min (90-130); Glucose 100 mg/dL (65-115); Osmolality Calculated 271 mOsm/kg (285-295); Sodium 132 mmol/L (136-145); Total Bilirubin 0.2 mg/dL (0.15-1.2); Total Protein 6.9 g/dL (6.6-8.7)
--- NOTE | 2019-09-21 20:47 | XR_ITS ---
WS: [id number] EXAM: AP CHEST: PORTABLE UPRIGHT DATE OF EXAM: 09/21/2019, 2112 hours COMPARISON: Prior chest x-ray from 11/07/2018 and 07/11/2019 HISTORY: Patient is 64 years old with stroke alert. Acute mental status changes started just prior to admissio n. FINDINGS: The cardiac silhouette is enlarged but similar The mediastinal contours again demonstrate calcifie d plaque in the aorta. The pulmonary vascularity is congested. I question slight interstitial edema . No large area of consolidation. There is no effusion or pneumothorax. No acute bony abnormality is seen. XR/XR chest 1V [id number] IMPRESSION: Stable enlarged cardiac silhouette. Pulmonary vascular congestion with suspicion for slight pulmonary edema.
[2019-09-21 20:58] LABS: Anion Gap 13.5 (5-19); Potassium 2.5 mmol/L (3.5-5.1)
[2019-09-21] MEDS: iodixanol 320 mg/mL 100mL Btl IV (20:59)
[2019-09-21 21:18] LABS: Bilirubin Urine 1+ (NEGATIVE); Blood Urine 2+ (Negative); Glucose Urine UA Norm (Normal); Ketones Urine Negative (Negative); Nitrate Urine Negative (Negative); Protein Urine Neg (Negative); Specific Gravity, Urine 1.015 (1.005-1.030); Urine Color Yellow (Yellow); Urobilinogen Urine Norm (Negative); pH Urine 6 (5-7)
[2019-09-21 21:19] LABS: Add Urine Microscopic? YES; Leukocyte Esterase Urine Negative (Negative)
[2019-09-21 21:22] LABS: WBC Urine 15-25 /hpf (0-5)
[2019-09-21 21:23] LABS: Add Urine Culture? Yes; Amorphous Sediment Urine TRACE; Bacteria Urine TRACE; Mucus Urine TRACE; Squamous Epithelial Cell Urine 0-4 (0-5)
[2019-09-21] MEDS: sodium chloride 0.9% 1,000 ML 75 ML IV (21:43)
[2019-09-21] MEDS: potassium chloride premix 40 MEQ/100 ML PREMIX 25 MEQ IV (21:43)
[2019-09-21] MEDS: potassium chloride oral liq 20 mEq/15 mL UDC 40 MEQ PO (21:45)
[2019-09-21 21:47] VITALS: BP 127/61; PULSE 86; RESP 17; O2SAT 97
[2019-09-21 22:21] VITALS: BP 105/81; PULSE 84; RESP 16; O2SAT 96
[2019-09-21 22:36] LABS: Magnesium 2.2 mg/dL (1.7-2.3)
--- NOTE | 2019-09-21 23:17 | PM.HP ---
Providers/Chief Complaint Admitting Physician: Padmini Primary Care Provider: Jamaal Blake MD Chief Complaint: stroke alert History of Present Illness Nle Porter is a 64 year old female who presented to the emergency room from home as a stroke alert. She was sitting at the dinner table eating chili with her family when she just slumped over and to the side. This occurred right around 7pm. She did not lose consciousness but she would not respond, appeared weak all over. She made eye contact but would not speak. No reported loss of bowel or bladder function. No abnormal movements. She had not been acting quite like herself prior to dinner. When EMS arrived, they noted a left-sided facial droop and some left weakness. Stroke alert was called. On arrival here patient had an NIH stroke scale measured at 17. Patient was very slow to respond and not very cooperative with full evaluation impacting score. CT of the head did not show any acute process. On-call neurology at [facility] reviewed the case. 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 Review of records shows that she had a similar but not quite as severe episode back in November 2018. At that time she was at [facility] sitting on a bench and unable to get up or move for some time leading to EMS being called. Stroke alert called then too. Symptoms resolved quickly and she was ultimately discharged from the emergency room. She was hospitalized here in July of this year with mental status changes but at that point in time was found walking around disoriented. Her potassium was noted to be low. Today, as stated, event occured with family at home while eating. No vomiting occurred. Patient quickly improved in ER and started talking. She is, at baseline, slow to answer questions. Like last time she was found to have a low potassium. According to the daughter who was here recently she is back to her baseline. She was ultimately deemed not a candidate for TPA. She does have history of hypertension and hyperlipidemia. She wears CPAP. She has some PTSD and depression along with some dementia. Has mild cognitive impairment at baseline. No report of any fevers. She denies any chest pain, difficulty breathing, cough, upper respiratory symptoms, palpitations. No headache. Denies acute change in vision. Does not herself report weakness on one side more than the other. She remembers eating chili for dinner and remembers that people were concerned that she might of had a stroke as the reason for her coming into the emergency room. Denies recent new medication or change in medicines. No known sick contacts. History is obtained from combination of patient and review of old records. She has received some potassium replacement in the emergency room. Magnesium was normal. Review of Systems Const: Denies: fever(s), chills or change in appetite Eyes: Denies: change in vision or blurry vision ENMT: Denies: throat pain or nasal congestion Card: Denies: chest pain, palpitations or edema Resp: Reports: other (wears cpap at night); Denies: dyspnea, productive cough or non-productive cough GI: Reports: diarrhea (sometimes); Denies: abdominal pain, nausea, vomiting, dysphagia, heartburn or constipation : Reports: dysuria (sometimes), urinary frequency and urinary incontinence; Denies: flank pain or hematuria Musc: Reports: muscle weakness and other (legs always uncomfortable ); Denies: joint pain, joint swelling, joint redness or joint stiffness Skin/Breast: Denies: rash or pruritus Neuro: Reports: weakness in extremities, confusion, Slurred speech present and restless legs; Denies: headache(s), numbness in extremities, dizziness or involuntary movements Psych: Reports: depression (on medication); Denies: anxiety Onur/Lymph: Denies: easy bruising or easy bleeding Medications/Allergies Home Medications Medication Instructions Recorded Confirmed Last Taken Type Anoro Ellipta 1 inh INHALATION BID #60 each 07/15/19 07/11/19 07/11/19 Rx Aricept 10 mg PO BEDTIME 30 Days #30 tab 07/15/19 Unknown Rx albuterol sulfate [Ventolin HFA] 2 inh INHALATION Q6H PRN #8.5 gm 07/15/19 Unknown Rx atorvastatin 20 mg PO DAILY 30 Days #30 tab 07/15/19 Unknown Rx ergocalciferol (vitamin D2) 1,250 mcg PO Q7D #4 cap 07/15/19 Unknown Rx escitalopram oxalate [Lexapro] 20 mg PO DAILY 30 Days #30 tab 07/15/19 Unknown Rx famotidine 20 mg PO DAILY 30 Days #30 tab 07/15/19 Unknown Rx losartan 25 mg PO DAILY 30 Days #30 tab 07/15/19 Unknown Rx memantine [Namenda] 10 mg PO DAILY 30 Days #30 tab 07/15/19 Unknown Rx montelukast 10 mg PO DAILY 30 Days #30 tab 07/15/19 Unknown Rx potassium chloride 40 meq PO DAILY 30 Days #60 tab 07/15/19 Unknown Rx risperidone [Risperdal] 4 mg PO BID 30 Days #60 tab 07/15/19 Unknown Rx ropinirole 0.5 mg PO BID 30 Days #60 tab 07/15/19 Unknown Rx trazodone 150 mg tablet 150 mg PO BEDTIME 30 Days #30 tab 08/05/19 Unknown Rx bupropion HCl [Wellbutrin XL] 300 mg PO DAILY 09/22/19 09/22/19 Unknown History chlorthalidone 25 mg PO DAILY 09/22/19 09/22/19 Unknown History prazosin 1 mg PO QPM 09/22/19 09/22/19 Unknown History Allergies Allergy/AdvReac Type Severity Reaction Status Date / Time doxycycline Allergy Unknown Verified 02/28/19 11:34 Penicillins Allergy unknown Verified 02/28/19 11:33 PFSH Acute PFSH: Medical History (Updated 09/22/19 @ 01:41 by Tanja Washington MD) COPD (chronic obstructive pulmonary disease) diagnosis as per patient, remote smoker, PFTs without demonstrated obstructive component 02/24 Dementia Dyslipidemia History of pulmonary function tests (~02/2019) mild restrictive ventilatory defect, improved with bronchodilator, elevated RV/TLC, nl DLCO Hypertension Major depressive disorder, recurrent, in partial remission Obesity (BMI 30.0-34.9) Post-traumatic stress disorder, chronic Restless leg syndrome Vitamin D deficiency Surgical History (Updated 09/21/19 @ 23:44 by Tanja Washington MD) History of carpal tunnel release History of hysterectomy Family History (Updated 09/21/19 @ 23:41 by Tanja Washington MD) Other Psychiatric illness Social History (Updated 09/21/19 @ 23:41 by Tanja Washington MD) Smoking and tobacco status: former smoker Household members: family Current occupational status: disabled Female Reproductive History: : 5 Para: 4 Supplemental PFSH Information: EUGENIA 1:640, August 2019, referred to Rheumatology by PCP, has apt on 10/08/[address] Germain at 09:20 Vitals/I&O/Wt Last Vital Signs Pulse 84 09/21/19 22:21 Resp 16 09/21/19 22:21 BP 105/81 09/21/19 22:21 Pulse Ox 96 09/21/19 22:21 Weight last 48 hrs Weight 81.647 kg Physical Exam Const: OTHER: Patient is awake and alert, she is slow to answer questions, taking a second or 3 to respond but answers questions appropriately, oriented to person, place and situation HENMT: OTHER: No evidence of head trauma, has some remnants of chili around her mouth, dry mucous membranes, nasopharynx is clear Eye: OTHER: Pupils are equal bilaterally, extraocular movements are intact but again patient is slow to respond to commands with a delay of 1 to 3 seconds before she does what you ask her to Neck/C-Spine: OTHER: Supple Resp: OTHER: Clear to auscultation bilaterally no rales rhonchi or wheezes noted Cardio: OTHER: Regular rate and rhythm, no murmurs gallops or rubs noted. Heart sounds are distant. GI: OTHER: Abdomen soft, nontender, nondistended, positive bowel sounds : OTHER: Normal external genitalia with some erythema Extremity: NARRATIVE EXTREMITY EXAM: No pitting edema, no warmth or erythema of joints Neuro: OTHER: Looks to have a left-sided facial droop when facial expressions are flat but actually has a symmetric smile on my evaluation, speech is delayed but clear and understandable, handgrip is equal though again response to squeezing your hand from when you ask her to do it is delayed Skin: NARRATIVE SKIN EXAM: Skin is dry, some almost petechial-like lesions on the shoulders, scattered nevi and actinic keratoses Data : 09/21/19 20:09 09/21/19 20:09 A&P Assessment and plan (1) Acute alteration in mental status: Has had several episodes with similar grouping of symptoms of being less responsive, sometimes with muscular weakness, sometimes with low potassium level. Could be effect from medications either directly or indirectly through development of associated SIADH, GI or other volume losses. She has chlorthalidone listed on home medicines but also takes potassium replacement at 40 mEq a day according to prescription bottles. If she is fully compliant with medications there may be a underlying cause. She was evaluated to some degree in August of this year with lower range of normal normal TSH, minimally elevated ammonia level, urine electrolytes. She has some mild hyponatremia and slight increase of creatinine from baseline with most recent values from PCPs office showing a creatinine of 1.1. Suspect some degree of volume depletion. Differential diagnosis includes arrhythmia, cardiac ischemia, transient ischemic attack for other reasons. Does not appear to be a large [employer]USTRI[employer] APPRAISER vessel event at this time. CTA of the head neck did not show substantial blockages. Patient does have PTSD and a history of major depressive disorder with some psychosis in the past as well. Exact etiology is not clear presently but patient does appear to be back to baseline at the moment. Status: Acute (2) Acute hypokalemia: Normally on chlorthalidone but prescribe 40 mEq of potassium supplementation daily Status: Acute (3) Abnormal urinalysis: With normal leukocyte esterase and nitrates. Urine specimen also with some epithelial cells. She reports urinary discomfort and frequency but normal white count and no fevers. Status: Acute (4) Hypertension: Currently appears controlled, home medication list reveals that she is on losartan, Norvasc, chlorthalidone. She takes prazosin at night but it is for psychiatric reasons rather than blood pressure control. Status: Chronic Qualifiers: Hypertension type: essential hypertension Qualified Code(s): I10 - Essential (primary) hypertension (5) Dyslipidemia: Chronically on statin Status: Chronic (6) Dementia: Chronically on Namenda and Aricept Status: Chronic Qualifiers: Dementia type: unspecified type Dementia behavioral disturbance: without behavioral disturbance Qualified Code(s): F03.90 - Unspecified dementia without behavioral disturbance (7) Uses continuous positive airway pressure (CPAP) ventilation at home: Unsure of settings but had pulmonary function studies earlier this year Status: Chronic (8) Restless leg syndrome: Chronically on Requip Status: Chronic (9) Obesity (BMI 30.0-34.9): Status: Chronic Additional A&P Information PTSD and depression, chronically on S-Citalopram, trazodone at bedtime, Wellbutrin XL and prazosin at bedtime Inpatient admission Add serial cardiac enzymes Echocardiogram as last one was done in 2016 Telemetry monitoring Last lipid panel last checked in March of last year so I have reordered for morning Had CTA of the head and neck in the emergency room Replace potassium Recheck levels in the morning along with magnesium and phosphorus IV fluids with potassium tonight Currently hold chlorthalidone Check uric acid in the morning Continue home CPAP Hold antibiotics currently as specimen, despite being a straight cath looks to potentially be contaminated with epithelial cells noted Continue home statin and amlodipine, hold losartan currently Continue escitalopram, Requip, risperidone, Wellbutrin As needed breathing treatments Other home medicines presently held PT evaluation Lovenox for DVT prophylaxis Supportive care otherwise Plans were discussed with patient and she was given an opportunity to ask questions. Patient's daughter was aware of planned admission for monitoring and potassium replacement tonight Attestations Medical Necessity Statement*: Currently anticipated stay less than 2 midnights in a patient presenting with acute decrease in mental status, transient weakness found to have hypokalemia. She is back to baseline beyond the low potassium level. Plan is admission for a little bit more evaluation as noted above and potassium replacement unless clinical course dictates otherwise. Coding Level of Care Code Acute Health And Wellness Manager for Jodie Chance Diagnoses Acute alteration in mental status R41.82 Acute hypokalemia E87.6 Abnormal urinalysis R82.90 Hypertension I10 Hypertension type: essential hypertension Dyslipidemia E78.5 Dementia F03.90 Dementia type: unspecified type Dementia behavioral disturbance: without behavioral disturbance Uses continuous positive airway pressure (CPAP) ventilation at home Z99.89 Restless leg syndrome G25.81 Obesity (BMI 30.0-34.9) E66.9
[2019-09-21 23:48] VITALS: BP 108/83; PULSE 78; RESP 14; O2SAT 95
[2019-09-22] VITALS (13 sets, daily range): BP systolic 123–145; BP diastolic 72–85; PULSE 62–96; RESP 16–22; TEMP 36.5–37.1; O2SAT 95–98
--- NOTE | 2019-09-22 00:38 | PC.NURSE ---
Reynaldo GUARDADO attempted to transport patient to [facility]. Upon arriving in patient's ED room, the patient had removed her peripheral IV with potassium and Normal Saline running in the floor. Patient had removed her depends and urinated in the stretcher. Patient was then placed on a bedside commode. A new IV was established. Patient was cleaned and a new depend was placed on her. ED Provider Dr. Olea and Inpatient MD Doctor Padmini were notified of the situation. Notified 2 Gabe RN of patient's condition and updated them on the potassium and fluids that were noted in the floor.
[2019-09-22] MEDS: enoxaparin 40 mg/0.4 mL Syringe SUBCUT (00:42)
[2019-09-22] MEDS: sodium chlor 0.9% + KCl 20 mEq 20 MEQ/1,000 ML BAG 100 MEQ IV ×2 (00:42→09:01)
--- NOTE | 2019-09-22 01:09 | ECG_ITS ---
[facility] Test Date: 2019-09-21 Pat Name: Nel Porter Department: Room: 256 Gender: Female Service Employee: : 1955 Requested By: Tanja Washington Order Number: [id number] Narciso MD: Pinky Larson M.D. Measurements Intervals [place] Rate: 69 P: 51 DE: 129 QRS: 4 QRSD: 153 T: 26 QT: 471 QTc: 507 Interpretive Statements SINUS RHYTHM RIGHT BUNDLE BRANCH BLOCK [120+ ms QRS DURATION, UPRIGHT V1, 40+ ms S IN I/aVL/V4/V5/V6] Compared to ECG 07/11/2019 11:46:20 No significant changes Electronically Signed On 09-22-2019 19:00:00 CDT by Pinky Larson M.D. [email or web address].Nvigen/store/NU/[id number] f
[2019-09-22 01:41] LABS: Troponin(5th) Baseline 21 ng/L (0-10)
--- NOTE | 2019-09-22 02:14 | USCV_ITS ---
German Nel Age: 64 Gender: F : 1955 Exam Date: 09/22/2019 09:15 Ordering Phys: Tanja Washington MD Technologist: Kadeem Catherine [place] [facility] [place]ication: CHF BP: 144 / 83 HR: 62 Rhythm: Sinus Technical Quality: Suboptimal MEASUREMENTS (Male / Female) Normal Values 2D ECHO LV Diastolic Diameter PLAX 3.5 cm 4.2 - 5.9 / 3.9 - 5.3 cm LV Systolic Diameter PLAX 2.5 cm IVS Diastolic Thickness 0.9 cm 0.6 - 1.0 / 0.6 - 0.9 cm IVS Systolic Thickness 1.4 cm LVPW Diastolic Thickness 1.0 cm 0.6 - 1.0 / 0.6 - 0.9 cm LVPW Systolic Thickness 1.7 cm LVOT Diameter 2.1 cm LV Ejection Fraction 2D Teich 54.2 % LV Ejection Fraction MOD 2C 62.6 % LV Ejection Fraction 2C AL 62.6 % LA Diameter 3.7 cm LA Width 3.5 cm LA Height 5.2 cm RA Width 3.6 cm RA Height 4.3 cm M-MODE Aortic Annulus Diameter 3.3 cm LA Ao Ratio MM 1.1 MV E Point Septal Separation 1.2 cm DOPPLER AV Peak Velocity 251.0 cm/s LVOT Peak Velocity 142.0 cm/s AV Area Cont Eq vti 1.8 cm squared AV Area Cont Eq pk 1.9 cm squared MV Area PHT 3.4 cm squared Mitral E to A Ratio 0.9 MV E' Velocity 8.0 cm/s Mitral E to MV E' Ratio 9.9 Mitral E to LV E' Lateral Ratio 10.3 Mitral E to LV E' Septal Ratio 9.5 TR Peak Velocity 256.0 cm/s TR Peak Gradient 26.3 mmHg TV Peak E Velocity 79.0 cm/s Right Atrial Pressure 3.0 mmHg Pulmonary Artery Systolic Pressu 29.2 mmHg PV Peak Velocity 120.0 cm/s FINDINGS Left Ventricle Normal left ventricular size, and systolic function, with no regional wall motion abnormalities. LVEF is 55 to 60% normal left ventricular wall thickness. Diastolic function is abnormal. Right Ventricle The right ventricle is normal in size and function. Right Atrium The right atrium is normal in size. Left Atrium The left atrium is normal in size. Mitral Valve Structurally normal mitral valve without significant stenosis or prolapse. There is no mitral regurgitation. Aortic Valve Structurally normal aortic valve without significant sclerosis or stenosis. There is no aortic regurgitation. Tricuspid Valve Structurally normal tricuspid valve without significant stenosis or regurgitation. Insufficient TR jet to assess RVSP. Pulmonic Valve Structurally normal pulmonic valve without significant stenosis. There is no pulmonic regurgitation. Pericardium Normal pericardium without effusion. Aorta Normal ascending aorta dimension. CONCLUSIONS Normal LV systolic function with EF of 55 to 60%. Diastolic function is abnormal Melquiades Hartman MD (Electronically Signed) Final Date: 22 September 2019 17:10 S
[2019-09-22 03:36] LABS: Troponin 5 2HR 21.82 ng/L (0-10); Troponin 5 2HR Delta 0.82 ABS# (0-10)
--- NOTE | 2019-09-22 05:09 | ECG_ITS ---
[facility] Test Date: 2019-09-22 Pat Name: Nel Porter Department: Room: 256 Gender: Female Top Former: : 1955 Requested By: Tanja Washington Order Number: [id number] Narciso MD: Pinky Larson M.D. Measurements Intervals [place] Rate: 66 P: 29 GA: 139 QRS: 42 QRSD: 158 T: 23 QT: 462 QTc: 487 Interpretive Statements SINUS RHYTHM RIGHT BUNDLE BRANCH BLOCK [120+ ms QRS DURATION, UPRIGHT V1, 40+ ms S IN I/aVL/V4/V5/V6] Compared to ECG 09/21/2019 20:19:49 No significant changes Electronically Signed On 09-22-2019 19:00:10 CDT by Pinky Larson M.D. [email or web address] [email or web address] Databasecleveland clinic.Gigzon/store/OM/[id number]
[2019-09-22 07:41] LABS: Blood Urea Nitrogen 15 mg/dL (8-23); Carbon Dioxide 20 mmol/L (22-29); Chloride 104 mmol/L (98-107); Glomerular Filtration Rate 62.8 mL/min (90-130); Glucose 93 mg/dL (65-115); Osmolality Calculated 276 mOsm/kg (285-295); Sodium 135 mmol/L (136-145)
[2019-09-22 07:49] LABS: Anion Gap 13.9 (5-19); Potassium 2.9 mmol/L (3.5-5.1)
[2019-09-22 07:55] LABS: Chol HDL Ratio 3.38 mg/dL (0.0-4.40); Cholesterol 115 mg/dL (0-200); HDL Cholesterol 34 mg/dL (60-100); LDL Cholesterol Calculated 60 mg/dL (50-129); LDL HDL Ratio 1.76 RATIO (0.00-3.22); Triglycerides 106 mg/dL (0-150); Uric Acid 3.5 mg/dL (2.4-5.7)
[2019-09-22 07:56] LABS: Magnesium 2.2 mg/dL (1.7-2.3); Phosphorus 2.9 mg/dL (2.5-4.5)
[2019-09-22] MEDS: risperiDONE 2 mg Tablet PO ×2 (08:38→16:56)
[2019-09-22] MEDS: potassium chloride ER 10 mEq Tablet 40 MEQ PO ×3 (08:38→16:55)
[2019-09-22] MEDS: escitalopram 10 mg Tablet 20 MG PO (08:38)
[2019-09-22] MEDS: amlodipine 5 mg Tablet PO (08:38)
[2019-09-22] MEDS: nystatin powder 15 gm Btl 1 APPLIC TOPICAL ×2 (08:38→16:56)
[2019-09-22] MEDS: buPROPion XL (24 HR) 300 mg Tablet PO (08:39)
[2019-09-22] MEDS: ropinirole 0.25 mg Tablet 0.5 MG PO ×2 (08:39→16:56)
[2019-09-22] MEDS: potassium chloride premix 40 MEQ/100 ML PREMIX 25 MEQ IV (08:56)
[2019-09-22] MEDS: aspirin 81 mg EC Tablet PO (10:29)
--- NOTE | 2019-09-22 11:56 | PC.RESP ---
Pulmonary Rehab information sent to patient.
--- NOTE | 2019-09-22 15:29 | PC.NURSE ---
Per pt Es Knet has permission to talk to staff about patient.
--- NOTE | 2019-09-22 16:12 | P.PN_ITS ---
Subjective Subjective: Interval history: History and physical reviewed. Patient states she is doing okay but is unstable on her feet. She states this is been going on for weeks. Physical therapy is in the room when I evaluate her and it is obvious even with using a walker that she tends to go towards the left. Medications: Reviewed: Yes Vitals/I&O/Wt Last Vital Signs Temp 98.7 F 09/22/19 15:35 Pulse 72 09/22/19 15:35 Resp 22 H 09/22/19 15:35 BP 143/82 09/22/19 15:35 Pulse Ox 98 09/22/19 11:20 09/22/19 09/22/19 09/22/19 06:59 14:59 22:59 Intake Total 702 / 702 2448.334 / 2448.334 Output Total 700 / 700 700 / 700 Balance 1748.334 / 1748.334 Weight last 48 hrs Weight 81.647 kg Physical Exam Narrative: EXAM NARRATIVE: General exam no apparent distress Cardiovascular regular in rhythm Lungs clear Abdomen is soft with positive bowel sounds Extremities no cyanosis clubbing or edema Neuro, left facial droop which is old is noted. It is hard to notice any focal weakness. Data : 09/21/19 20:09 09/22/19 14:32 A&P Assessment and plan (1) Acute alteration in mental status: Possibly multifactorial. Cannot rule out TIA, or CVA. Symptoms have been present for approximately 1 week according to patient.. Currently she is at [facility] although weak. Hypokalemia could play a role. Chlorthalidone has been discontinued. Supplementing potassium currently. Hyponatremia currently is mild enough I doubt it is playing a role. Initial CT no acute changes. Head and neck CTA demonstrates no flow-limiting lesions. Echocardiogram is pending. Initiate aspirin 81 mg daily Continue statin Overall secondary to her gait instability and multiple falls reported at home it would be safer for her to transition to nursing facility. She is agreeable to this. Awaiting to see what discharge planning can arrange. Status: Acute (2) Acute hypokalemia: Supplementing Urine electrolytes pending Status: Acute (3) Abnormal urinalysis: With normal leukocyte esterase and nitrates. Doubt UTI Status: Acute (4) Hypertension: Appears controlled at home. Restart losartan tomorrow. Status: Chronic Qualifiers: Hypertension type: essential hypertension Qualified Code(s): I10 - Essential (primary) hypertension (5) Dyslipidemia: Chronically on statin. Increase to 40 mg. Status: Chronic (6) Dementia: Chronically on Namenda and Aricept Status: Chronic Qualifiers: Dementia type: unspecified type Dementia behavioral disturbance: without behavioral disturbance Qualified Code(s): F03.90 - Unspecified dementia without behavioral disturbance (7) Uses continuous positive airway pressure (CPAP) ventilation at home: Unsure of settings but had pulmonary function studies earlier this year Status: Chronic (8) Restless leg syndrome: Chronically on Requip Status: Chronic (9) Obesity (BMI 30.0-34.9): Status: Chronic Additional A&P Information PTSD/depression Reduce fluids Lovenox for DVT prophylaxis Full code Attestations Medical Necessity Statement*: Awaiting disposition to nursing facility for safety secondary to repetitive falls, abnormal gait. 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
[2019-09-22 17:40] LABS: Potassium, Radom Urine 49 mmol/L; Urine Random Chloride 169 mmol/L; Urine Random Sodium 90 mmol/L
[2019-09-22] MEDS: atorvastatin 40 mg Tablet PO (21:35)
[2019-09-23] VITALS (8 sets, daily range): BP systolic 126–154; BP diastolic 62–85; PULSE 66–71; RESP 16–20; TEMP 36.8–37.1; O2SAT 93–97
[2019-09-23] MEDS: enoxaparin 40 mg/0.4 mL Syringe SUBCUT (00:14)
[2019-09-23 04:49] LABS: Basophils % 0.6 %; Eosinophils # 0.1 10^3/uL (0.0-0.8); Eosinophils % 2.5 %; Hematocrit 34.6 % (37.0-47.0); Hemoglobin 11.3 g/dL (11.5-15.3); Lymphocytes # 1.2 10^3/uL (0.8-4.8); Lymphocytes % 25.3 %; Mean Corpuscular HGB Conc 32.7 g/dL (30.0-36.0); Mean Corpuscular Hemoglobin 29.7 pg (28.0-34.0); Mean Corpuscular Volume 91.1 fL (81-99); Monocytes # 0.7 10^3/uL (0.2-0.9); Monocytes % 15.1 %; Neutrophils # 2.59 10^3/uL (1.8-7.7); Neutrophils % 54.2 %; Nucleated Red Blood Cells % 0 %; Platelet Count 320 10^3/cmm (130-400); Red Cell Distribution Width 13.3 % (12.1-15.1); White Blood Count 4.8 10^3/uL (4.0-10.0)
[2019-09-23 05:26] LABS: Anion Gap 9.1 (5-19); Blood Urea Nitrogen 10 mg/dL (8-23); Calcium 9.5 mg/dL (8.5-10.5); Carbon Dioxide 28 mmol/L (22-29); Chloride 103 mmol/L (98-107); Glucose 104 mg/dL (65-115); Osmolality Calculated 280 mOsm/kg (285-295); Potassium 3.1 mmol/L (3.5-5.1); Sodium 137 mmol/L (136-145)
[2019-09-23] MEDS: sodium chlor 0.9% + KCl 20 mEq 20 MEQ/1,000 ML BAG 100 MEQ IV (06:17)
[2019-09-23] MEDS: ropinirole 0.25 mg Tablet 0.5 MG PO (08:01)
[2019-09-23] MEDS: escitalopram 10 mg Tablet 20 MG PO (08:01)
[2019-09-23] MEDS: potassium chloride ER 10 mEq Tablet 40 MEQ PO (08:01)
[2019-09-23] MEDS: buPROPion XL (24 HR) 300 mg Tablet PO (08:01)
[2019-09-23] MEDS: risperiDONE 2 mg Tablet PO (08:02)
[2019-09-23] MEDS: losartan 50 mg Tablet 25 MG PO (08:02)
[2019-09-23] MEDS: aspirin 81 mg EC Tablet PO (08:02)
[2019-09-23] MEDS: amlodipine 5 mg Tablet PO (08:02)
[2019-09-23] MEDS: nystatin powder 15 gm Btl 1 APPLIC TOPICAL (08:05)
--- NOTE | 2019-09-23 11:27 | PC.NURSE ---
Spoke with Es patient's daughter who was wondering how long patient would be in [place] because she was wanting her to get an apartment close to her down in [place] so she would be near her. Es would like her mom to come to a snf near her as well. Patient requested and is agreeable to go to [facility] at this time. Es verbalized understanding.
--- NOTE | 2019-09-23 12:03 | P.DS_ITS ---
Discharge Providers Date of Admission: 09/21/19 23:26 Date of Discharge: September 23, 2019 Attending Provider at Admission: Tanja Washington MD Attending Provider at Discharge: Steve Toro MD Primary Care Provider: Jamaal Blake MD Diagnoses at Discharge Discharge Diagnosis (1) Acute alteration in mental status: Status: Acute Problem details: Resolved. Secondary to possibility of TIA she will be discharged on statin (2) Acute hypokalemia: Status: Acute Problem details: Improved (3) Abnormal urinalysis: Status: Acute (4) Hypertension: Status: Chronic Problem details: Controlled Qualifiers: Hypertension type: essential hypertension Qualified Code(s): I10 - Essential (primary) hypertension (5) Dyslipidemia: Status: Chronic (6) Dementia: Status: Chronic Qualifiers: Dementia type: unspecified type Dementia behavioral disturbance: without behavioral disturbance Qualified Code(s): F03.90 - Unspecified dementia without behavioral disturbance (7) Uses continuous positive airway pressure (CPAP) ventilation at home: Status: Chronic Problem details: Sleep study 04/24 limited assessment due to inadequate sleep, CPAP continued (8) Restless leg syndrome: Status: Chronic (9) Obesity (BMI 30.0-34.9): Status: Chronic Reason for Visit Reason for Visit: stroke alert Hospital Course Hospital Course: Nel is a 64-year-old white female who presented to the hospital with neurologic symptoms. There was concern of left-sided weakness, and confusion. CT head was negative. CTA demonstrated no flow-limiting lesions. Potassium was noted to be significantly low. Potassium was supplemented. Neurologically she returned to baseline while in the hospital. Echocardiogram was completed, demonstrating no thrombus. No atrial fibrillation was noted on telemetry. Further history, determined that she was a significant fall risk, with history of repetitive falls at home. Secondary to this, nursing facility placement was arranged. Low potassium was also noted during her hospital stay, and was supplemented heavily while the patient was in the hospital. On discharge her potassium was above 3, and she will continue to get significant supplementation at discharge. A plasma renin and aldosterone level was obtained which will be pending at discharge. Consideration of placing her on Aldactone could be considered to help with hypokalemia as well. Physical Exam Narrative: EXAM NARRATIVE: General exam no apparent distress Cardiovascular regular rate and rhythm Lungs clear Abdomen is soft, positive bowel sounds Extremities no cyanosis clubbing or edema. Discharge Data Data Completed and Pending: Completed Studies During Hospitalization Category Date Time Status CT angio headneck * [id number] Urge nt Cat Scan 09/21/19 20:[address] head wo con* [id number] Stat Cat Scan 09/21/19 20:12 Completed XR chest 1V [id number] Stat Exams 09/21/19 20:47 Completed CV echo complete* [id number] Routine Ultrasound 09/22/19 02:14 Completed Pending at discharge Category Date Time Status Urine Culture Sta t Lab 09/21/19 20:50 Received Labs from last 24 hours 09/23/19 09/23/19 09/22/19 04:30 04:30 17:05 WBC 4.8 RBC 3.80 L Hgb 11.3 L Hct 34.6 L MCV 91.1 MCH 29.7 MCHC 32.7 RDW 13.3 Plt Count 320 MPV 9.0 Neut % (Auto) 54.2 Lymph % (Auto) 25.3 Polk % (Auto) 15.1 Eos % (Auto) 2.5 Baso % (Auto) 0.6 Neut # (Auto) 2.59 Lymph # (Auto) 1.2 Polk # (Auto) 0.7 Eos # (Auto) 0.1 Baso # (Auto) 0.0 Nucleated RBC % (a uto) 0 Nucleated RBCs # 0.0 Sodium 137 Potassium 3.1 L Chloride 103 Carbon Dioxide 28 Anion Gap 9.1 BUN 10 Creatinine 0.8 GFR Calculation 72.0 L Glucose 104 Calculated Osmolal ity 280 L Calcium 9.5 Ur Random Sodium 90 Ur Random Potassiu m 49 Ur Random Chloride 169 09/22/19 14:32 WBC RBC Hgb Hct MCV MCH MCHC RDW Plt Count MPV Neut % (Auto) Lymph % (Auto) Polk % (Auto) Eos % (Auto) Baso % (Auto) Neut # (Auto) Lymph # (Auto) Polk # (Auto) Eos # (Auto) Baso # (Auto) Nucleated RBC % (a uto) Nucleated RBCs # Sodium Potassium 3.0 L Chloride Carbon Dioxide Anion Gap BUN Creatinine GFR Calculation Glucose Calculated Osmolal ity Calcium Ur Random Sodium Ur Random Potassiu m Ur Random Chloride Vitals: Last Vital Signs Temp 98.4 F 09/23/19 11:34 Pulse 68 09/23/19 11:34 Resp 20 H 09/23/19 11:34 BP 126/62 09/23/19 11:34 Pulse Ox 93 09/23/19 11:34 Discharge Plan Discharge Patient Disposition: Xfer [facility] Condition: Stable Prescriptions: New risperidone 2 mg Tablet 2 mg PO BID Qty: 60 RF: 0 potassium chloride 10 mEq Tablet Extended Release 40 meq PO BID Qty: 60 RF: 0 aspirin 81 mg Tablet,Delayed Release (Dr/Ec) 81 mg PO DAILY Qty: 30 RF: 0 atorvastatin 40 mg Tablet 40 mg PO BEDTIME Qty: 30 RF: 0 Continued donepezil [Aricept] 10 mg tablet 10 mg PO BEDTIME 30 Days Qty: 30 RF: 0 famotidine 20 mg Tablet 20 mg PO DAILY 30 Days Qty: 30 RF: 0 ropinirole 0.5 mg tablet 0.5 mg PO BID 30 Days Qty: 60 RF: 0 losartan 25 mg Tablet 25 mg PO DAILY 30 Days Qty: 30 RF: 0 albuterol sulfate [Ventolin HFA] 90 mcg/actuation HFA aerosol inhaler 2 inh INHALATION Q6H PRN (Reason: shortness of breath or wheezing) Qty: 8.5 RF: 0 escitalopram oxalate [Lexapro] 20 mg tablet 20 mg PO DAILY 30 Days Qty: 30 RF: 0 memantine [Namenda] 10 mg tablet 10 mg PO DAILY 30 Days Qty: 30 RF: 0 bupropion HCl [Wellbutrin XL] 300 mg tablet extended release 24 hr 300 mg PO DAILY RF: 0 amlodipine 5 mg tablet 5 mg PO DAILY RF: 0 Claritin 10 mg Tablet 10 mg PO DAILY RF: 0 Anoro Ellipta 62.5-25 mcg/actuation blister with device 1 inh INHALATION DAILY RF: 0 Discontinued trazodone 150 mg tablet 150 mg PO BEDTIME 30 Days Qty: 30 RF: 0 risperidone [Risperdal] 4 mg tablet 4 mg PO BID 30 Days Qty: 60 RF: 0 montelukast 10 mg Tablet 10 mg PO DAILY 30 Days Qty: 30 RF: 0 ergocalciferol (vitamin D2) 1,250 mcg (50,000 unit) Capsule 1,250 mcg PO Q7D Qty: 4 RF: 0 potassium chloride 20 mEq Tablet Extended Release 40 meq PO DAILY 30 Days Qty: 60 RF: 0 prazosin 1 mg Capsule 1 mg PO BEDTIME RF: 0 chlorthalidone 25 mg Tablet 25 mg PO QAM RF: 0 ibuprofen 200 mg Tablet 400 mg PO TID PRN (Reason: Pain) RF: 0 Tums See Rx Instructions .ROUTE .COMPLEX RF: 0 atorvastatin 20 mg tablet 20 mg PO BEDTIME RF: 0 Referrals: [facility] [place] [Outside] - 1-3 days (Follow-up with Dr. 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
--- NOTE | 2019-09-23 15:13 | PC.NURSE ---
Report called to Lisa at [facility] at this time.
--- NOTE | 2019-09-23 16:30 | PC.NURSE ---
Patient discharged at this time. IV removed intact. Patient is A&Ox3. Respirations even and non-labored on room air. Patient wheel chaired to ready transport.
[2019-09-28 03:07] LABS: Plasma Renin Activity LC/MS/MS 2.55 ng/mL/h (0.25-5.82)
== END 2019-09-23 16:30 | disposition skilled nursing facility (03) ==
LOC: ER 22:23 → MEDSURG 23:40
PROVIDERS: Emergency Medicine; Admitting Provider Hospitalist; PCP Family Medicine; Visit Provider Internal Medicine
DX: R41.82 Altered mental status, unspecified (principal); E87.6 Hypokalemia; I10 Essential (primary) hypertension; G25.81 Restless legs syndrome; F03.90 Unspecified dementia, unspecified severity, without behavioral disturbance, psychotic disturbance, mood disturbance, and anxiety; E66.9 Obesity, unspecified; J44.9 Chronic obstructive pulmonary disease, unspecified; R82.90 Unspecified abnormal findings in urine; E78.5 Hyperlipidemia, unspecified; Z87.891 Personal history of nicotine dependence; Z99.89 Dependence on other enabling machines and devices; Z68.32 Body mass index [BMI] 32.0-32.9, adult
CPT/HCPCS: 12345; 36415; 70450; 70496; 70498; 71045; 80048; 80053; 80061; 81001; 82088; 82436; 83735; 84100; 84132; 84133; 84244; 84300; 84484; 84550; 85025; 85610; 85730; 87086; 93005; 93306; 94660; 96361; 96365; 96366; 96372; 97110; 97116; 97161; 99284; 99285; G0378; J1650; J3480; J7030; Q9967

== ENCOUNTER 2019-10-14 09:15 | Outpatient (CLI) | payer MEDICARE, MEDICAID, SELFPAY ==
--- NOTE | 2019-10-14 09:22 | MR_ITS ---
WS: [id number] MRI HEAD WITH CONTRAST TECHNIQUE: Sagittal T1, T2 axial, T2 axial FLAIR, axial susceptibility weighted imaging, axial diffus ion weighted images, and coronal T2 images were obtained. Pre and post-T1 axial and post T1 coronal i mages. ADC and FSPGR images. CLINICAL INFORMATION: DETERMINE CVA COMPARISON: CT September 21, 2019 FINDINGS: No evidence of restricted diffusion to suggest acute ischemia. Ventricular system and basal cisterns are patent. Moderate small vessel changes. Moderate parenchymal volume loss. Normal posterior fossa. Normal vascular flow voids at the skull base. No extra-axial fluid collections. Paranasal sinuses and mastoid air cells are well aerated. No hemosi mai on susceptibly weighted images. Moderate symmetric atrophy involving the temporal lobes and hip pocampal formations. No abnormal gadolinium enhancement. Normal dural venous sinuses. MR/MR head wo/w con [id number] IMPRESSION: 1. No evidence of restricted diffusion to suggest acute ischemia. 2. Moderate small vessel changes with moderate parenchymal volume loss. 3. No abnormal gadolinium enhancement. 4. No hemosiderin on susceptibly weighted images. 5. Moderate symmetric atrophy involving the temporal lobes and hippocampal for mations.
== END 2019-10-14 09:16 | disposition home or self-care (01) ==
LOC: RADSHAW 09:21
PROVIDERS: PCP Family Medicine; Visit Provider Family Medicine
DX: I63.9 Cerebral infarction, unspecified (principal); G31.9 Degenerative disease of nervous system, unspecified
CPT/HCPCS: 70553; A9579

== ENCOUNTER → 2019-10-29 08:02 | Outpatient (BNVA) | payer MEDICARE, MEDICAID, SELFPAY | PROVIDERS: PCP Family Medicine; Visit Provider Nurse Practitioner | DX: F33.41 Major depressive disorder, recurrent, in partial remission (principal); F43.12 Post-traumatic stress disorder, chronic; G31.84 Mild cognitive impairment of uncertain or unknown etiology | CPT/HCPCS: 99214 ==

== ENCOUNTER 2019-10-30 15:37 | Emergency (ER) | payer MEDICARE, MEDICAID, SELFPAY ==
[2019-10-30 15:41] VITALS: BP 164/93; PULSE 67; RESP 18; TEMP 36.8; O2SAT 98; BMI 35.1
--- NOTE | 2019-10-30 15:55 | W.ED.GENADLT ---
HPI - General Adult General: Chief complaint: General Medical Stated complaint: High BP Time Seen by Provider: 10/30/19 15:49 Source: patient Mode of arrival: ambulatory Limitations: no limitations History of Present Illness: HPI narrative: 64-year-old female states she has been having high blood pressure over the last 5 to 6 days. She states she stopped taking her amlodipine 1 week ago. She said mild headaches that is since resolved. Her blood pressure earlier was 180s but now is 160s. She denies any chest pain. Denies any worsening improving factors. Denies any vomiting or diarrhea. Associated symptoms: Deny chest pain, dyspnea, headache(s), nausea, rash or vomiting Review of Systems Const: Denies: fever(s), chills, body aches or change in appetite Eyes: Denies: blurry vision or eye discomfort ENMT: Denies: throat pain or dental pain Card: Denies: chest pain Resp: Denies: dyspnea GI: Denies: abdominal pain, nausea, vomiting or diarrhea : Denies: dysuria Musc: Denies: neck pain or back pain Skin/Breast: Denies: rash Neuro: Denies: headache(s) Psych: Denies: depression Onur/Lymph: Denies: easy bruising All/Imm: Denies: urticaria PFSH ED PFSH: Medical History (Updated 10/30/19 @ 15:55 by Ronak Brito MD) COPD (chronic obstructive pulmonary disease) diagnosis as per patient, remote smoker, PFTs without demonstrated obstructive component 02/24 Dementia Dyslipidemia History of pulmonary function tests (~02/2019) mild restrictive ventilatory defect, improved with bronchodilator, elevated RV/TLC, nl DLCO Hypertension Controlled Major depressive disorder, recurrent, in partial remission Obesity (BMI 30.0-34.9) Post-traumatic stress disorder, chronic Restless leg syndrome Vitamin D deficiency Surgical History (Updated 09/21/19 @ 23:44 by Tanja Washington MD) History of carpal tunnel release History of hysterectomy Family History (Updated 09/21/19 @ 23:41 by Tanja Washington MD) Other Psychiatric illness Social History (Updated 09/21/19 @ 23:41 by Tanja Washington MD) Smoking and tobacco status: former smoker Household members: family Current occupational status: disabled Female Reproductive History: Para: 4 Physical Exam Const: COMMON NORMALS: no acute distress, patient oriented x3 and healthy appearing HENMT: COMMON NORMALS: normocephalic and atraumatic HEAD & SCALP: normocephalic and atraumatic Eye: COMMON NORMALS: Equal, round and reactive pupils present and EOMs intact bilaterally PUPIL: Yes Equal, round and reactive pupils present Neck/C-Spine: COMMON NORMALS: full ROM and supple Chest: COMMONS NORMALS: normal inspection of the chest and normal palpation of entire chest wall Resp: COMMON NORMALS: normal respiratory effort, No retractions, No use of accessory muscles and clear to auscultation bilaterally AUSCULTATION: clear to auscultation bilaterally Cardio: COMMON NORMALS: regular rate, regular rhythm and No murmurs present (Cardio) RATE: regular rate RHYTHM: regular rhythm GI: COMMON NORMALS: Normal to inspection, nondistended, normoactive bowel sounds present, Soft to palpation, non-tender and no masses PALPATION: Yes Soft to palpation Extremity: COMMON NORMALS: normal to inspection and full ROM Neuro: COMMON NORMALS: patient oriented x3, moves all extremities and no focal motor deficits Psych: COMMON NORMALS: mental status grossly normal, Normal thought process present and cooperative THOUGHT PROCESS: Normal thought process present Skin: COMMON NORMALS: no rashes or lesions noted and no wounds GENERAL SKIN EXAM: no rashes or lesions noted Course Vital Signs: Vital signs: Vital Signs Temperature 98.2 F 10/30/19 15:41 Pulse Rate 67 10/30/19 15:41 Respiratory Rate 18 10/30/19 15:41 Blood Pressure 164/93 10/30/19 15:41 Pulse Oximetry 98 10/30/19 15:41 MDM - General Adult MDM Narrative: Medical decision making narrative: Patient presents here with high blood pressure. Patient is asymptomatic. We will start her back on amlodipine but this time at 2.5 mg that she states 5 was making her hypotensive. She is to take her blood pressure 3 times a day and follow-up with PCP in 5 to 7 days. She is return if worsening. She understands and agrees to plan. Discharge Plan Discharge Patient Disposition: Home Clinical Impression: Hypertension Qualifiers: Hypertension type: essential hypertension Qualified Code(s): I10 - Essential (primary) hypertension Condition: Stable Prescriptions: New amlodipine 2.5 mg tablet 2.5 mg PO DAILY Qty: 30 RF: 0 No Action ropinirole 0.5 mg tablet 0.5 mg PO BID 30 Days Qty: 60 RF: 2 risperidone 2 mg tablet 2 mg PO BID Qty: 60 RF: 2 memantine [Namenda] 10 mg tablet 10 mg PO DAILY 30 Days Qty: 30 RF: 2 escitalopram oxalate [Lexapro] 20 mg tablet 20 mg PO DAILY 30 Days Qty: 30 RF: 2 donepezil [Aricept] 10 mg tablet 10 mg PO BEDTIME 30 Days Qty: 30 RF: 2 bupropion HCl [Wellbutrin XL] 300 mg tablet extended release 24 hr 300 mg PO DAILY Qty: 30 RF: 2 trazodone 150 mg tablet 150 mg PO .HS Qty: 30 RF: 2 famotidine 20 mg Tablet 20 mg PO DAILY 30 Days Qty: 30 RF: 0 losartan 25 mg Tablet 25 mg PO DAILY 30 Days Qty: 30 RF: 0 albuterol sulfate [Ventolin HFA] 90 mcg/actuation HFA aerosol inhaler 2 inh INHALATION Q6H PRN (Reason: shortness of breath or wheezing) Qty: 8.5 RF: 0 amlodipine 5 mg tablet 5 mg PO DAILY RF: 0 Claritin 10 mg Tablet 10 mg PO DAILY RF: 0 Anoro Ellipta 62.5-25 mcg/actuation blister with device 1 inh INHALATION DAILY RF: 0 atorvastatin 40 mg Tablet 40 mg PO BEDTIME Qty: 30 RF: 0 potassium chloride 10 mEq Tablet Extended Release 40 meq PO BID Qty: 60 RF: 0 aspirin 81 mg Tablet,Delayed Release (Dr/Ec) 81 mg PO DAILY Qty: 30 RF: 0 Discharge Orders: Discharge Order (Routine); Ordered 10/30/19 Ordered By: Ronak Brito Referrals: Jamaal Blake MD [Primary Care Provider] - 1-3 days Discharge Diet: Advance as tolerated Discharge Activity: Resume usual activity Patient Instructions: Hypertension (ED) Coding Level of Care Code ED 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
== END 2019-10-30 16:06 | disposition home or self-care (01) ==
LOC: ER 16:04
PROVIDERS: Emergency Provider Emergency Medicine; PCP Family Medicine
DX: I10 Essential (primary) hypertension (principal); Z79.82 Long term (current) use of aspirin; J44.9 Chronic obstructive pulmonary disease, unspecified; F03.90 Unspecified dementia, unspecified severity, without behavioral disturbance, psychotic disturbance, mood disturbance, and anxiety; E78.5 Hyperlipidemia, unspecified; Z87.891 Personal history of nicotine dependence
CPT/HCPCS: 12345; 99281

== ENCOUNTER 2019-11-15 11:14 | Inpatient (IN) | payer MEDICARE, MEDICAID, SELFPAY ==
[2019-11-15] VITALS (10 sets, daily range): BP systolic 98–148; BP diastolic 62–97; PULSE 64–101; RESP 16–20; TEMP 36.5–36.9; O2SAT 95–100; BMI 33.6
--- NOTE | 2019-11-15 11:59 | XRR_ITS ---
PROCEDURE INFORMATION: Exam: XR Chest, 1 View Exam date and time: 11/15/2019 12:01 PM Age: 64 years old Clinical indication: Other: AMS TECHNIQUE: Imaging protocol: XR of the chest Views: 1 view. COMPARISON: No relevant prior studies available. FINDINGS: Lungs: There is mild prominence of the pulmonary interstitium suggesting fibrosis. There is no focal airspace consolidation. Pleural space: Unremarkable. No pleural effusion. No pneumothorax. Heart/Mediastinum: The cardiac silhouette is enlarged. The aorta is tortuous and calcified. Bones/joints: There is thoracolumbar scoliosis convex the right. XR/XR chest 1V portable [id number] IMPRESSION: 1. Scoliosis. 2. Cardiomegaly. 3. No acute abnormality.
--- NOTE | 2019-11-15 11:59 | CTR_ITS ---
PROCEDURE INFORMATION: Exam: CT Head Without Contrast Exam date and time: 11/15/2019 12:17 PM Age: 64 years old Clinical indication: Altered mental status/memory loss; Additional info: Symptoms of acute stroke TECHNIQUE: Imaging protocol: Computed tomography of the head without contrast. Radiation optimization: All CT scans at this facility use at least one of these dose optimization techniques: automated exposure control; mA and/or kV adjustment per patient size (includes targeted exams where dose is matched to clinical indication); or iterative reconstruction. COMPARISON: CT head wo con* [id number] 09/21/2019 8:04 PM RADIATION DOSE METRICS: Total DLP (mGy-cm): 819.18 FINDINGS: Brain: There is patchy decreased white matter density indicating chronic small vessel white matter ischemia. No intracranial hemorrhage, edema or other acute abnormalities are seen. There is no mass effect or midline shift. Cerebral ventricles: There is generalized prominence of the ventricles and sulci due to diffuse chronic atrophy. Bones/joints: Unremarkable. No acute fracture. Paranasal sinuses: Visualized sinuses are unremarkable. No fluid levels. Mastoid air cells: Visualized mastoid air cells are well aerated. Soft tissues: Unremarkable. CT/CT head wo con* [id number] IMPRESSION: 1. Chronic atrophy with chronic white matter ischemic change. 2. No acute intracranial abnormality. Radiation Dose CTDIVOL = (mGy): DLP = 819.18 (mGy-cm)
--- NOTE | 2019-11-15 11:59 | ECG_ITS ---
[facility] Test Date: 2019-11-15 Pat Name: Nel Porter Department: Room: Gender: Female Buggy Loader: : [id number] Requested By: Linda Lott Order Number: [id number] Narciso MD: Ania Hogan M.D. Measurements Intervals [place] Rate: 86 P: 24 WV: 135 QRS: 105 QRSD: 146 T: 25 QT: 384 QTc: 461 Interpretive Statements SINUS RHYTHM RIGHT AXIS DEVIATION [QRS AXIS > 100] RIGHT BUNDLE BRANCH BLOCK [120+ ms QRS DURATION, UPRIGHT V1, 40+ ms S IN I/aVL/V4/V5/V6] Compared to ECG 09/22/2019 04:58:02 Right-axis deviation now present Electronically Signed On 11-15-2019 17:43:55 CDT by Ania Hogan M.D. [id number]
[2019-11-15 12:23] LABS: Basophils % 0.7 %; Eosinophils % 0.7 %; Hematocrit 43.3 % (37.0-47.0); Hemoglobin 13.1 g/dL (11.5-15.3); Lymphocytes # 0.7 10^3/uL (0.8-4.8); Lymphocytes % 13.3 %; Mean Corpuscular HGB Conc 30.3 g/dL (30.0-36.0); Mean Corpuscular Hemoglobin 29.8 pg (28.0-34.0); Mean Corpuscular Volume 98.6 fL (81-99); Mean Platelet Volume 9.2 fL (7.4-10.4); Monocytes # 0.8 10^3/uL (0.2-0.9); Monocytes % 14.7 %; Neutrophils # 3.75 10^3/uL (1.8-7.7); Neutrophils % 69.1 %; Nucleated Red Blood Cells % 0 %; Platelet Count 284 10^3/cmm (130-400); Red Blood Count 4.39 10^6/uL (4.1-5.3); Red Cell Distribution Width 12.6 % (12.1-15.1); White Blood Count 5.4 10^3/uL (4.0-10.0)
[2019-11-15 12:49] LABS: Partial Thromboplastin Time 20.2 SECONDS (23.9-36.7)
[2019-11-15 12:50] LABS: Alanine Aminotransferase 16 U/L (0-33); Albumin Level 4.8 g/dL (3.5-5.2); Alkaline Phosphatase 91 IU/L (35-105); Aspartate Amino Transferase 22 U/L (0-32); Blood Urea Nitrogen 22 mg/dL (8-23); Calcium 10.5 mg/dL (8.5-10.5); Carbon Dioxide 17 mmol/L (22-29); Chloride 92 mmol/L (98-107); Globulin 2.6 g/dL (1.3-4.6); Glomerular Filtration Rate 41.1 mL/min (90-130); Glucose 96 mg/dL (65-115); Osmolality Calculated 261 mOsm/kg (285-295); Sodium 124 mmol/L (136-145); Total Bilirubin 0.2 mg/dL (0.15-1.2); Total Protein 7.4 g/dL (6.6-8.7)
[2019-11-15 12:51] LABS: Anion Gap 18.9 (5-19)
[2019-11-15 12:52] LABS: Potassium 3.9 mmol/L (3.5-5.1)
[2019-11-15 13:37] LABS: Add Urine Microscopic? YES; Bacteria Urine TRACE /hpf; Bilirubin Urine Neg (Negative); Blood Urine Neg (Negative); Glucose Urine UA Norm (Normal); Ketones Urine Negative (Negative); Leukocyte Esterase Urine Negative (Negative); Mucus Urine 1+ /hpf; Nitrate Urine Negative (Negative); Protein Urine Neg (Negative); Specific Gravity, Urine 1.015 (1.005-1.030); Squamous Epithelial Cell Urine 0-4 /hpf (0-5); Urine Appearance SL Hazy (CLEAR); Urine Color Yellow (Yellow); Urobilinogen Urine Norm (Negative); WBC Urine 0-4 /hpf (0-5); pH Urine 5 (5-7)
[2019-11-15 13:38] LABS: Add Urine Culture? No
[2019-11-15] MEDS: sodium chloride 0.9% 1,000 ML 999 ML IV (13:41)
[2019-11-15 13:48] LABS: Procalcitonin 0.06 ng/mL (0-0.5)
[2019-11-15 13:59] LABS: Acetaminophen < 5.0 ug/mL (10-30); C Reactive Protein 1.2 mg/L (0.0-4.9); Creatine Phosphokinase 176 U/L (26-192); Magnesium 1.9 mg/dL (1.7-2.3); Salicylate < 0.3 mg/dL (3-10)
[2019-11-15 14:34] LABS: SARS Covid-2 Antigen Negative (Negative)
--- NOTE | 2019-11-15 15:14 | ED_ITS ---
HPI - Neuro Symptoms/Deficit General: Chief Complaint: Neuro Symptoms/Deficit Stated Complaint: high bp Time Seen by Provider: 11/15/19 11:53 History of Present Illness: HPI Narrative: This patient is a 64-year-old female who presents with altered mental status. She is brought in today by a friend who got to her house about 1030 and noted that she was acting very strangely. The patient's daughter has been staying with her recently due to health issues and apparently she was not as concerned about the mental status as the friend. It seems as though the symptoms may have started yesterday although this is unclear. The patient says that she is here because her blood pressure was too high. She denies any specific complaints but is definitely an unreliable historian at this time. She 1 point told me she had a headache and then later denied having a headache. She denies chest pain, vomiting, diarrhea. She denies fevers or cough. She has recently been to the hospital with a TIA according to her friend. She also seems to have a history of dementia. This does appear to be an acute change today. Onset (ago): unknown (At least 2) Timing confirmed by: other (Friend) Location: left leg, ataxia, altered and other (Confusion) History of same: Yes Severity: moderate Quality: weak Review of Systems General: Reports: ROS unobtainable due to mental status [facility] ED PFSH: Medical History COPD (chronic obstructive pulmonary disease) diagnosis as per patient, remote smoker, PFTs without demonstrated obstructive component 02/24 Dementia Dyslipidemia History of pulmonary function tests (~02/2019) mild restrictive ventilatory defect, improved with bronchodilator, elevated RV/TLC, nl DLCO Hypertension Controlled Major depressive disorder, recurrent, in partial remission Obesity (BMI 30.0-34.9) Post-traumatic stress disorder, chronic Restless leg syndrome Vitamin D deficiency Surgical History H/O section History of carpal tunnel release History of hysterectomy Family History Other Psychiatric illness Social History Smoking and tobacco status: former smoker Quit status (tobacco): has quit using tobacco Former quit date comment: 20 ya Alcohol intake: never Substance/Drug Use: never Lives independently: Yes Household members: family and other Details: Daughter lives 7 stories above her Current occupational status: disabled Female Reproductive History: Para: 4 NIH stroke score NIHSS: Level Of Consciousness - 1a: 1 Level Of Consciousness Questions - 1b: One Correct Level Of Consciousness Commands - 1c: Both Correct Best Gaze - 2: Normal Visual Roque - 3: No Visual Loss Facial Palsy - 4: Normal Motor Arm Right - 5: No Drift Motor Arm Left - 5: No Drift Motor Leg Right - 6: No Drift Motor Leg Left - 6: Effort Against [place] Limb Ataxia - 7: Absent Sensory - 8: Normal Best Language - 9: No Aphasia Dysarthia - 10: Normal Extinction And Inattention - 11: 0 Score: Total Score: 4 Physical Exam Narrative: EXAM NARRATIVE: Definitely odd affect. Patient stares at you but does not volunteer speech. When asked questions she answers with simple 1 or 2 word answers. She follows commands but needs a little bit of extra guidance. Const: COMMON NORMALS: no acute distress and alert GENERAL APPEARANCE: cooperative and comfortable HENMT: HEAD & SCALP: normal to inspection FACE & SINUS: normal facial exam Eye: GENERAL EYE: appearance normal, both eyes and all related structures Neck/C-Spine: COMMON NORMALS: supple, no meningeal signs and no JVD Chest: COMMONS NORMALS: normal inspection of the chest Resp: COMMON NORMALS: normal respiratory effort, No use of accessory muscles and clear to auscultation bilaterally AUSCULTATION: clear to auscultation bilaterally Cardio: COMMON NORMALS: no JVD, regular rate, regular rhythm and No murmurs present (Cardio) RATE: regular rate RHYTHM: regular rhythm GI: COMMON NORMALS: Normal to inspection, nondistended, normoactive bowel sounds present, Soft to palpation and non-tender INSPECTION: Yes normal to inspection AUSCULTATION: Yes normoactive bowel sounds PALPATION: Yes Soft to palpation Back/Pelvis: COMMON NORMALS: thoracic and lumbar spine normal to inspection Extremity: COMMON NORMALS: normal to inspection Neuro: COMMON NORMALS: moves all extremities, no focal motor deficits and no sensory deficits noted SENSORIUM/ORIENTATION: Yes alert MENINGEAL SIGNS: Yes no meningeal signs Psych: COMMON NORMALS: mental status grossly normal, cooperative and normal affect Skin: COMMON NORMALS: no rashes or lesions noted and turgor normal GENERAL SKIN EXAM: no rashes or lesions noted and turgor normal Course ED course: Patient's head CT shows chronic atrophy but no acute changes. Chest x-ray is unremarkable. Urine is unremarkable. She is clearly altered and the cause is unclear. Could be related to medications. She also does have a history of dementia and this could be a staged worsening. I will admit her to the hospital for further evaluation and potentially an MRI. She does have left- sided weakness but again I am not sure if that is new or old. If it is new it is unlikely to be acute as her symptoms have been going on for at least 2 days. Vital Signs: Vital signs: Vital Signs Temperature 97.9 F 11/15/19 19:21 Pulse Rate 76 11/15/19 19:21 Respiratory Rate 18 11/15/19 19:21 Blood Pressure 102/70 11/15/19 19:21 Pulse Oximetry 96 11/15/19 19:21 MDM - Neuro Symptoms/Deficit Lab Data: Labs: Lab Results 11/15/19 11/15/19 11/15/19 Range/Units 12:12 12:12 12:12 WBC 5.4 (4.0-10.0) 10^3/ uL RBC 4.39 (4.1-5.3) 10^6/u L Hgb 13.1 (11.5-15.3) g/dL Hct 43.3 (37.0-47.0) % MCV 98.6 (81-99) fL MCH 29.8 (28.0-34.0) pg MCHC 30.3 (30.0-36.0) g/dL RDW 12.6 (12.1-15.1) % Plt Count 284 (130-400) 10^3/c mm MPV 9.2 (7.4-10.4) fL Neut % (Auto) 69.1 % Lymph % (Auto) 13.3 % [place] % (Auto) 14.7 % Eos % (Auto) 0.7 % Baso % (Auto) 0.7 % Neut # (Auto) 3.75 (1.8-7.7) 10^3/u L Lymph # (Auto) 0.7 L (0.8-4.8) 10^3/u L [place] # (Auto) 0.8 (0.2-0.9) 10^3/u L Eos # (Auto) 0.0 (0.0-0.8) 10^3/u L Baso # (Auto) 0.0 (0.0-0.1) 10^3/u L Nucleated RBC % (a uto) 0 % Nucleated RBCs # 0.0 /100WBC PT 13.50 (12.1-14.9) SECO NDS INR 1.00 (0.8-1.2) APTT 20.2 L (23.9-36.7) SECO NDS Sodium 124 L (136-145) mmol/L Potassium 3.9 (3.5-5.1) mmol/L Chloride 92 L (98-107) mmol/L Carbon Dioxide 17 L (22-29) mmol/L Anion Gap 18.9 (5-19) BUN 22 (8-23) mg/dL Creatinine 1.3 H (0.5-0.9) mg/dL GFR Calculation 41.1 L (90-130) mL/min Glucose 96 (65-115) mg/dL POC Glucose (70-110) mg/dL Calculated Osmolal ity 261 L (285-295) mOsm/k g Lactic Acid (0.5-2.2) mmol/L Calcium 10.5 (8.5-10.5) mg/dL Magnesium (1.7-2.3) mg/dL Total Bilirubin 0.2 (0.15-1.2) mg/dL AST 22 (0-32) U/L ALT 16 (0-33) U/L Alkaline Phosphata se 91 (35-105) IU/L Creatine Kinase (26-192) U/L C-Reactive Protein (0.0-4.9) mg/L Total Protein 7.4 (6.6-8.7) g/dL Albumin 4.8 (3.5-5.2) g/dL Globulin 2.6 (1.3-4.6) g/dL Procalcitonin (0-0.5) ng/mL Urine Color (Yellow) Urine Appearance (CLEAR) Urine pH (5-7) Ur Specific Gravit y (1.005-1.030) Urine Protein (Negative) Urine Glucose (UA) (Normal) Urine Ketones (Negative) Urine Blood (Negative) Urine Nitrate (Negative) Urine Bilirubin (Negative) Urine Urobilinogen (Negative) mg/dL Ur Leukocyte Chelsey ase (Negative) Urine RBC (0-2) /hpf Urine WBC (0-5) /hpf Ur Squamous Epith Cells (0-5) /hpf Amorphous Sediment Urine Bacteria (NONE) /hpf Hyaline Casts /lpf Urine Mucus /hpf Salicylates (3-10) mg/dL Acetaminophen (10-30) ug/mL SARS-CoV-2 Ag (Rap id) (Negative) 11/15/19 11/15/19 11/15/19 Range/Units 12:12 12:12 12:50 WBC (4.0-10.0) 10^3/ uL RBC (4.1-5.3) 10^6/u L Hgb (11.5-15.3) g/dL Hct (37.0-47.0) % MCV (81-99) fL MCH (28.0-34.0) pg MCHC (30.0-36.0) g/dL RDW (12.1-15.1) % Plt Count (130-400) 10^3/c mm MPV (7.4-10.4) fL Neut % (Auto) % Lymph % (Auto) % [place] % (Auto) % Eos % (Auto) % Baso % (Auto) % Neut # (Auto) (1.8-7.7) 10^3/u L Lymph # (Auto) (0.8-4.8) 10^3/u L [place] # (Auto) (0.2-0.9) 10^3/u L Eos # (Auto) (0.0-0.8) 10^3/u L Baso # (Auto) (0.0-0.1) 10^3/u L Nucleated RBC % (a uto) % Nucleated RBCs # /100WBC PT (12.1-14.9) SECO NDS INR (0.8-1.2) APTT (23.9-36.7) SECO NDS Sodium (136-145) mmol/L Potassium (3.5-5.1) mmol/L Chloride (98-107) mmol/L Carbon Dioxide (22-29) mmol/L Anion Gap (5-19) BUN (8-23) mg/dL Creatinine (0.5-0.9) mg/dL GFR Calculation (90-130) mL/min Glucose (65-115) mg/dL POC Glucose (70-110) mg/dL Calculated Osmolal ity (285-295) mOsm/k g Lactic Acid 1.0 (0.5-2.2) mmol/L Calcium (8.5-10.5) mg/dL Magnesium 1.9 (1.7-2.3) mg/dL Total Bilirubin (0.15-1.2) mg/dL AST (0-32) U/L ALT (0-33) U/L Alkaline Phosphata se (35-105) IU/L Creatine Kinase 176 (26-192) U/L C-Reactive Protein 1.2 (0.0-4.9) mg/L Total Protein (6.6-8.7) g/dL Albumin (3.5-5.2) g/dL Globulin (1.3-4.6) g/dL Procalcitonin 0.06 (0-0.5) ng/mL Urine Color Yellow (Yellow) Urine Appearance Sl hazy (CLEAR) Urine pH 5 (5-7) Ur Specific Gravit y 1.015 (1.005-1.030) Urine Protein Neg (Negative) Urine Glucose (UA) Norm (Normal) Urine Ketones Negative (Negative) Urine Blood Neg (Negative) Urine Nitrate Negative (Negative) Urine Bilirubin Neg (Negative) Urine Urobilinogen Norm (Negative) mg/dL Ur Leukocyte Chelsey ase Negative (Negative) Urine RBC None (0-2) /hpf Urine WBC 0-4 H (0-5) /hpf Ur Squamous Epith Cells 0-4 H (0-5) /hpf Amorphous Sediment Not Reportable Urine Bacteria Trace (NONE) /hpf Hyaline Casts 5-10 H /lpf Urine Mucus 1+ /hpf Salicylates < 0.3 L (3-10) mg/dL Acetaminophen < 5.0 L (10-30) ug/mL SARS-CoV-2 Ag (Rap id) (Negative) 11/15/19 11/15/19 Range/Units 13:15 13:30 WBC (4.0-10.0) 10^3/ uL RBC (4.1-5.3) 10^6/u L Hgb (11.5-15.3) g/dL Hct (37.0-47.0) % MCV (81-99) fL MCH (28.0-34.0) pg MCHC (30.0-36.0) g/dL RDW (12.1-15.1) % Plt Count (130-400) 10^3/c mm MPV (7.4-10.4) fL Neut % (Auto) % Lymph % (Auto) % [place] % (Auto) % Eos % (Auto) % Baso % (Auto) % Neut # (Auto) (1.8-7.7) 10^3/u L Lymph # (Auto) (0.8-4.8) 10^3/u L [place] # (Auto) (0.2-0.9) 10^3/u L Eos # (Auto) (0.0-0.8) 10^3/u L Baso # (Auto) (0.0-0.1) 10^3/u L Nucleated RBC % (a uto) % Nucleated RBCs # /100WBC PT (12.1-14.9) SECO NDS INR (0.8-1.2) APTT (23.9-36.7) SECO NDS Sodium (136-145) mmol/L Potassium (3.5-5.1) mmol/L Chloride (98-107) mmol/L Carbon Dioxide (22-29) mmol/L Anion Gap (5-19) BUN (8-23) mg/dL Creatinine (0.5-0.9) mg/dL GFR Calculation (90-130) mL/min Glucose (65-115) mg/dL POC Glucose 97 (70-110) mg/dL Calculated Osmolal ity (285-295) mOsm/k g Lactic Acid (0.5-2.2) mmol/L Calcium (8.5-10.5) mg/dL Magnesium (1.7-2.3) mg/dL Total Bilirubin (0.15-1.2) mg/dL AST (0-32) U/L ALT (0-33) U/L Alkaline Phosphata se (35-105) IU/L Creatine Kinase (26-192) U/L C-Reactive Protein (0.0-4.9) mg/L Total Protein (6.6-8.7) g/dL Albumin (3.5-5.2) g/dL Globulin (1.3-4.6) g/dL Procalcitonin (0-0.5) ng/mL Urine Color (Yellow) Urine Appearance (CLEAR) Urine pH (5-7) Ur Specific Gravit y (1.005-1.030) Urine Protein (Negative) Urine Glucose (UA) (Normal) Urine Ketones (Negative) Urine Blood (Negative) Urine Nitrate (Negative) Urine Bilirubin (Negative) Urine Urobilinogen (Negative) mg/dL Ur Leukocyte Chelsey ase (Negative) Urine RBC (0-2) /hpf Urine WBC (0-5) /hpf Ur Squamous Epith Cells (0-5) /hpf Amorphous Sediment Urine Bacteria (NONE) /hpf Hyaline Casts /lpf Urine Mucus /hpf Salicylates (3-10) mg/dL Acetaminophen (10-30) ug/mL SARS-CoV-2 Ag (Rap id) Negative (Negative) Discharge Plan Discharge Admit Provider: Lucho Zamarripa Discharge Date/Time: 11/15/19 16:02 Coding Level of Care Code ED Supervisor Scouring Pads for Chg Fwd Exam Comprehensive
[2019-11-15 15:20] LABS: Glucose Point of Care 97 mg/dL (70-110)
--- NOTE | 2019-11-15 15:23 | PC.NURSE ---
Dr Zamarripa in room , completing admission assessment
--- NOTE | 2019-11-15 15:36 | P.HP_ITS ---
Providers/Chief Complaint Admitting Physician: Lucho Zamarripa Primary Care Provider: Jamaal Blake MD Chief Complaint: high bp History of Present Illness Nel Porter is a 64 year old lady was brought in to the ER by her friend due to not acting right . The timing of onset of this is not clear although it appears her daughter had seen her sometime yesterday and seems she was doing all right. In ER she is found to be very slow to give responses, although overall responds correctly, sluggish, and observed by RN to be wobbly on trying to walk. With high concern for fall she is kept on bedrest, Her catheter was placed. Appeared dehydrated, received a bolus of normal saline. She is noted to have acute on chronic hyponatremia with sodium 124. Acute kidney injury creatinine 1.3. She was noted to be somewhat weaker on the left side, however, this appears to be chronically present as per records from prior admission. During my visit she is rather sluggish in answering questions, but does answer appropriately and is oriented x3. Takes very long to answer questions, and having almost staring spells, but is not unresponsive during that time. No seizure-like activity is noted. She is complaining of pain in her legs which she says started yesterday. She says that this pain has been coming and going intermittently. It is mostly in her muscles in the lower legs. She says usually lives unassisted. Unfortunately her friend is no longer in ER to pro vide any additional details. Her daughter reportedly lives 7 stories above her in the same building, however, I cannot reach her with only busy signal on the phone. Patient otherwise denies any additional new medications recently. Her UA is unremarkable. Rapid COVID-19 unremarkable. There is no suggestion of acute infection or sepsis. CT of the head is showing chronic atrophy of white matter due to chronic ischemic changes. Generalized prominence of ventricles and sulci due to chronic atrophy. Review of Systems Const: Denies: fever(s), chills, body aches or malaise Eyes: Denies: change in vision or eye redness ENMT: Denies: throat pain, oral sores or ear or mastoid pain Card: Denies: chest pain, edema, pre-syncope or dyspnea on exertion Resp: Denies: dyspnea, productive cough, change in phlegm color or hemoptysis GI: Denies: abdominal pain, nausea, vomiting, diarrhea, constipation, hematochezia or melena : Denies: flank pain, urinary frequency or hematuria Musc: Reports: extremity pain (Bilateral lower extremity/muscle pain); Denies: back pain, joint swelling or joint redness Skin/Breast: Denies: rash, sores or new lesions Neuro: Reports: difficulty walking (Noted to be wobbly in ER.), confusion and behavioral changes; Denies: headache(s), numbness in extremities, weakness in extremities, dizziness or seizure-like activity Endo: Denies: polyuria or polydipsia Onur/Lymph: Denies: easy bleeding or purpura All/Imm: Denies: urticaria, throat swelling or tongue swelling Medications/Allergies Home Medications Medication Instructions Recorded Confirmed Last Taken Type albuterol sulfate [Ventolin HFA] 2 inh INHALATION Q6H PRN #8.5 gm 07/15/19 09/22/19 Unknown Rx famotidine 20 mg PO DAILY 30 Days #30 tab 07/15/19 09/22/19 Unknown Rx Anoro Ellipta 1 inh INHALATION DAILY 09/22/19 09/22/19 Unknown History Claritin 10 mg PO DAILY 09/22/19 09/22/19 Unknown History amlodipine 5 mg PO DAILY 09/22/19 09/22/19 Unknown History aspirin 81 mg PO DAILY #30 tab 09/23/19 Unknown Rx atorvastatin 40 mg PO BEDTIME #30 tab 09/23/19 Unknown Rx potassium chloride 40 meq PO BID #60 tab 09/23/19 Unknown Rx bupropion HCl 300 mg 24 hr tablet, 300 mg PO DAILY #30 tab 10/29/19 10/29/19 Unknown Rx extended release donepezil 10 mg tablet 10 mg PO BEDTIME 30 Days #30 tab 10/29/19 10/29/19 Unknown Rx escitalopram oxalate 20 mg tablet 20 mg PO DAILY 30 Days #30 tab 10/29/19 10/29/19 Unknown Rx memantine 10 mg tablet 10 mg PO DAILY 30 Days #30 tab 10/29/19 10/29/19 Unknown Rx risperidone 2 mg tablet 2 mg PO BID #60 tab 10/29/19 10/29/19 Unknown Rx albuterol sulfate 2.5 mg INHALATION Q6H PRN 11/15/19 11/15/19 Unknown History atorvastatin 40 mg PO DAILY 11/15/19 11/15/19 11/14/19 History losartan 25 mg PO BID 11/15/19 11/15/19 11/15/19 History spironolactone 11/15/19 Unknown History trazodone 150 mg PO BEDTIME 11/15/19 11/15/19 11/14/19 History Allergies Allergy/AdvReac Type Severity Reaction Status Date / Time doxycycline Allergy Unknown Verified 09/22/19 08:32 Penicillins Allergy unknown Verified 09/22/19 08:32 PFSH Acute PFSH: Medical History (Updated 11/15/19 @ 16:06 by Lucho Zamarripa MD) COPD (chronic obstructive pulmonary disease) diagnosis as per patient, remote smoker, PFTs without demonstrated obstructive component 02/24 Dementia Dyslipidemia History of pulmonary function tests (~02/2019) mild restrictive ventilatory defect, improved with bronchodilator, elevated RV/TLC, nl DLCO Hypertension Controlled Major depressive disorder, recurrent, in partial remission Obesity (BMI 30.0-34.9) Post-traumatic stress disorder, chronic Restless leg syndrome Vitamin D deficiency Surgical History (Updated 11/15/19 @ 16:13 by Lucho Zamarripa MD) H/O section History of carpal tunnel release History of hysterectomy Family History Other Psychiatric illness Social History Smoking and tobacco status: former smoker Quit status (tobacco): has quit using tobacco Former quit date comment: 20 ya Alcohol intake: never Substance/Drug Use: never Lives independently: Yes Household members: family and other Details: Daughter lives 7 stories above her Current occupational status: disabled Female Reproductive History: Para: 4 Vitals/I&O/Wt Last Vital Signs Temp 98.3 F 11/15/19 12:49 Pulse 85 11/15/19 15:23 Resp 16 11/15/19 15:23 BP 130/83 11/15/19 15:23 Pulse Ox 95 11/15/19 15:23 Weight last 48 hrs Weight 83.461 kg Physical Exam Const: COMMON NORMALS: no acute distress and patient oriented x3 GENERAL APPEARANCE: cooperative NUTRITIONAL APPEARANCE: overweight ORIEN TATION/CONSCIOUSNESS: Yes awake OTHER: Sluggish responses. HENMT: COMMON NORMALS: oropharynx normal Neck/C-Spine: COMMON NORMALS: no JVD Resp: COMMON NORMALS: normal respiratory effort and clear to auscultation bilaterally AUSCULTATION: clear to auscultation bilaterally Cardio: COMMON NORMALS: no JVD, regular rhythm, S1 normal heart sound present, S2 normal heart sound present and No murmurs present (Cardio) RHYTHM: regular rhythm HEART SOUNDS: S1 normal heart sound present and S2 normal heart sound present GI: COMMON NORMALS: Normal to inspection, nondistended, normoactive bowel sounds present, Soft to palpation and non-tender PALPATION: Yes Soft to palpation Extremity: COMMON NORMALS: no joint enlargement and no pedal edema OTHER: No erythema, rash, any lesions on lower extremities. Do not see any palpable cord, unilateral swelling or other abnormality. Neuro: COMMON NORMALS: patient oriented x3 and moves all extremities (Reported some left-sided weakness, but this is either minor or absent as right and left sides appear to be pretty equal in strength. No sensation deficit.) OTHER: She does not have any resting tremor. She is very sluggish with everything, slow to respond. Does respond appropriately and follow commands. Appears perhaps somewhat slow to release mainspring reverse winder. Skin: COMMON NORMALS: no rashes or lesions noted GENERAL SKIN EXAM: no rashes or lesions noted Data : 11/15/19 12:12 11/15/19 12:12 A&P Assessment and plan (1) Acute encephalopathy: Sluggish and slow to respond. Her friend who brought her to ER reported that she was better several days ago ( her usual self ). She appears to be slightly better in ER after receiving 1 L of fluids. She is answering for the most part everything correctly, but it takes her a while, and very sluggish to get around. Also noted to be unsteady on her feet, and so was placed on bedrest. Her catheter was inserted. This appears to be a somewhat recurrent issue with her as she has had 2 prior admissions last summer in July and September also with complaints of altered mental status. This appears to be acute encephalopathy multifactorial due to acute on chronic symptomatic hyponatremia, and possible medication effect due to polypharmacy in the setting of acute kidney injury. She also appears to have dehydration and I do see that she has spironolactone listed on her home medications (possibly started due to recurrent hypokalemia in the past). Her physical exam and UA were suggestive of dehydration. On presentation hypotensive also suspect secondary to dehydration with diuretic. Not sure that she remembers to hydrate adequately. She is also complaining of pain in her lower extremities, with difficulty walking, has had history of rhabdomyolysis in the past, with dehydration, acute kidney injury, statin, will check CK. Check TSH. At this time treat underlying problems as below. We will also get PT and OT assessment. Would discontinue spironolactone. Status: Acute (2) Hyponatremia: Dehydrated on exam. Suspected hypovolemic hyponatremia. Received fluid challenge 1 L saline in ER. Hold off additional fluid for now. Recheck sodium level. Hold diuretic. Status: Acute (3) GEM (acute kidney injury): Received fluid challenge. Hold diuretic. Encourage oral nutrition hydration. Reassess renal function, CANDACE. Status: Acute (4) Polypharmacy: She is on quite a few medications, would benefit from review and tapering down except for those absolutely necessary. Status: Acute (5) Acquired cerebral ventriculomegaly: Ventricular megaly and cerebral atrophy noted incidentally on CT. She is found to be somewhat unsteady on her feet in ER. She does say that usually she gets around by herself. I suspect her balance issues are related to similar problems as encephalopathy as above, she does report some pain in her legs as well, and so this may be somewhat more acute issue. If there are problems with balance that are persistent, in view also her dementia, would pursue additional assessment by neurology with consideration of LP for evaluation of possible NPH, although this is probably less likely as she does have reasons for ventriculomegaly, and atrophy appears to be generalized. Status: Acute (6) Dementia: Noted. Status: Chronic Qualifiers: Dementia type: unspecified type Dementia behavioral disturbance: without behavioral disturbance Qualified Code(s): F03.90 - Unspecified dementia without behavioral disturbance (7) Leg pain: Reports bilateral lower extremity muscle pain. Will check CK as she is on statin, dehydrated and with history of rhabdomyolysis. Legs otherwise are warm, appear perfused. Does not have any rashes, lesions, asymmetric edema. 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 Denies taking any extra medications. HLD Depression PTSD Attestations Medical Necessity Statement*: Admission of over 2 midnights continued for assessment of management of acute encephalopathy which appears to be a recurrent issue, with acute symptomatic hyponatremia, acute kidney injury, polypharmacy, underlying dementia, leg pain. Coding Level of Care Code Acute Telephone Lineman for [facility] Fwd Diagnoses Acute encephalopathy G93.40 Hyponatremia E87.1 GEM (acute kidney injury) N17.9 Polypharmacy Z79.899 Acquired cerebral ventriculomegaly G91.1 Dementia F03.90 Dementia type: unspecified type Dementia behavioral disturbance: without behavioral disturbance Leg pain M79.606
[2019-11-15 17:15] LABS: Creatine Phosphokinase 150 U/L (26-192); Magnesium 1.9 mg/dL (1.7-2.3); Sodium 129 mmol/L (136-145); Thyroid Stimulating Hormone 0.65 uIU/mL (0.27-4.20)
[2019-11-15] MEDS: heparin 5,000 unit/mL INJ 1 mL 5000 UNIT SUBCUT (19:45)
[2019-11-15] MEDS: risperiDONE 2 mg Tablet PO (19:46)
--- NOTE | 2019-11-15 19:48 | PC.NURSE ---
1800 MEDS Meds not charted as given but had been pulled from [employer]. Verified with day shift nurse Myrna Geiger that Risperidal and Heparin were given but did not get scanned in.
[2019-11-15] MEDS: trazodone 150 mg Tablet PO (20:27)
[2019-11-15] MEDS: donepezil 5 MG Tablet 10 MG PO (20:27)
[2019-11-15 23:34] LABS: Sodium 124 mmol/L (136-145)
[2019-11-16] VITALS (7 sets, daily range): BP systolic 114–141; BP diastolic 63–91; PULSE 68–77; RESP 16–20; TEMP 36.6–37.1; O2SAT 96–97
[2019-11-16] MEDS: heparin 5,000 unit/mL INJ 1 mL 5000 UNIT SUBCUT ×3 (01:50→18:31)
[2019-11-16 05:49] LABS: Basophils % 0.4 %; Eosinophils # 0.1 10^3/uL (0.0-0.8); Eosinophils % 1.7 %; Hematocrit 34.8 % (37.0-47.0); Hemoglobin 11.8 g/dL (11.5-15.3); Lymphocytes % 19.2 %; Mean Corpuscular HGB Conc 33.9 g/dL (30.0-36.0); Mean Corpuscular Hemoglobin 29.7 pg (28.0-34.0); Mean Corpuscular Volume 87.7 fL (81-99); Mean Platelet Volume 8.8 fL (7.4-10.4); Monocytes # 0.8 10^3/uL (0.2-0.9); Monocytes % 15.3 %; Neutrophils # 3.38 10^3/uL (1.8-7.7); Neutrophils % 62.3 %; Nucleated Red Blood Cells % 0 %; Platelet Count 283 10^3/cmm (130-400); Red Blood Count 3.97 10^6/uL (4.1-5.3); Red Cell Distribution Width 12.4 % (12.1-15.1); White Blood Count 5.4 10^3/uL (4.0-10.0)
--- NOTE | 2019-11-16 05:50 | PC.NURSE ---
SHIFT SUMMARY Has not slept much tonight. Has been quietly watching TV most of night. No c/o offered. Neurochecks all WNL and has answered all questions correctly. 1100 ml urine output from Her.
[2019-11-16 06:07] LABS: Alanine Aminotransferase 13 U/L (0-33); Albumin Level 4.1 g/dL (3.5-5.2); Alkaline Phosphatase 78 IU/L (35-105); Anion Gap 13.6 (5-19); Aspartate Amino Transferase 17 U/L (0-32); Blood Urea Nitrogen 12 mg/dL (8-23); Calcium 9.6 mg/dL (8.5-10.5); Carbon Dioxide 19 mmol/L (22-29); Chloride 94 mmol/L (98-107); Globulin 2.4 g/dL (1.3-4.6); Glomerular Filtration Rate 62.8 mL/min (90-130); Glucose 83 mg/dL (65-115); Magnesium 1.8 mg/dL (1.7-2.3); Osmolality Calculated 257 mOsm/kg (285-295); Sodium 124 mmol/L (136-145); Total Bilirubin 0.2 mg/dL (0.15-1.2); Total Protein 6.5 g/dL (6.6-8.7)
[2019-11-16 06:10] LABS: Potassium 2.6 mmol/L (3.5-5.1)
--- NOTE | 2019-11-16 06:24 | PC.NURSE ---
CRITICAL K+ Critical K+ of 2.[address] Lei was notified with order to give total of 80meq K-riders
[2019-11-16] MEDS: lidocaine 1% 5 ML in potassium chloride premix 100 ML 25 ML IV ×2 (06:37→15:17)
[2019-11-16] MEDS: famotidine 20 mg Tablet PO (08:14)
[2019-11-16] MEDS: memantine 5 mg tablet 10 MG PO (08:14)
[2019-11-16] MEDS: risperiDONE 2 mg Tablet PO ×2 (08:14→18:31)
[2019-11-16] MEDS: escitalopram 10 mg Tablet 20 MG PO (08:14)
[2019-11-16] MEDS: buPROPion XL (24 HR) 300 mg Tablet PO (08:14)
[2019-11-16] MEDS: aspirin 81 mg EC Tablet PO (08:14)
[2019-11-16] MEDS: losartan 50 mg Tablet 25 MG PO ×2 (10:18→18:30)
[2019-11-16] MEDS: magnesium sulfate premix 2 GM/50 ML PIGGYBACK IV (14:09)
[2019-11-16 18:17] LABS: Anion Gap 13.2 (5-19); Blood Urea Nitrogen 14 mg/dL (8-23); Calcium 9.4 mg/dL (8.5-10.5); Carbon Dioxide 22 mmol/L (22-29); Chloride 94 mmol/L (98-107); Glomerular Filtration Rate 62.8 mL/min (90-130); Glucose 105 mg/dL (65-115); Osmolality Calculated 263 mOsm/kg (285-295); Potassium 3.2 mmol/L (3.5-5.1); Sodium 126 mmol/L (136-145)
[2019-11-16] MEDS: potassium chloride ER 10 mEq Tablet 40 MEQ PO (20:25)
[2019-11-16] MEDS: trazodone 150 mg Tablet PO (20:26)
[2019-11-16] MEDS: donepezil 5 MG Tablet 10 MG PO (20:26)
--- NOTE | 2019-11-16 20:46 | PM.PN ---
Subjective Subjective: Interval history: She reports is doing a little bit better. Appears to be a little bit less sluggish. Denies headache, dizziness, chest pain or pressure, shortness of breath. Vitals/I&O/Wt Last Vital Signs Temp 97.9 F 11/16/19 15:38 Pulse 77 11/16/19 15:38 Resp 18 11/16/19 15:38 BP 120/74 11/16/19 18:30 Pulse Ox 96 11/16/19 15:38 11/16/19 11/16/19 11/16/19 06:59 14:59 22:59 Intake Total 200 / 1320 585 / 585 360 / 945 Output Total 1250 / 2100 400 / 400 1400 / 1800 Balance -1050 / -780 185 / 185 -1040 / -855 Weight last 48 hrs Weight 85.956 kg Weight 83.461 kg Physical Exam Const: COMMON NORMALS: no acute distress and patient oriented x3 GENERAL APPEARANCE: cooperative NUTRITIONAL APPEARANCE: overweight ORIENTATION/CONSCIOUSNESS: Yes awake OTHER: Sluggish responses, although today little bit better. HENMT: COMMON NORMALS: oropharynx normal Neck/C-Spine: COMMON NORMALS: no JVD Resp: COMMON NORMALS: normal respiratory effort and clear to auscultation bilaterally AUSCULTATION: clear to auscultation bilaterally Cardio: COMMON NORMALS: no JVD, regular rhythm, S1 normal heart sound present, S2 normal heart sound present and No murmurs present (Cardio) RHYTHM: regular rhythm HEART SOUNDS: S1 normal heart sound present and S2 normal heart sound present GI: COMMON NORMALS: Normal to inspection, nondistended, normoactive bowel sounds present, Soft to palpation and non-tender PALPATION: Yes Soft to palpation Extremity: COMMON NORMALS: no joint enlargement and no pedal edema OTHER: No erythema, rash, any lesions on lower extremities. Do not see any palpable cord, unilateral swelling or other abnormality. Neuro: COMMON NORMALS: patient oriented x3 and moves all extremities (Reported some left-sided weakness, but this is either minor or absent as right and left sides appear to be pretty equal in strength. No sensation deficit.) OTHER: She does not have any resting tremor. Skin: COMMON NORMALS: no rashes or lesions noted GENERAL SKIN EXAM: no rashes or lesions noted Urinary Catheter Management^: Her: Cath Placed During This Visit: yes Urinary Catheter Date of Insertion: 11/15/19 Urinary Catheter Time of Insertion: 15:00 Data : 11/16/19 05:20 11/16/19 17:24 A&P Assessment and plan (1) Acute encephalopathy: Today she is doing little better. Responding little bit quicker. Did well with OT. Continue PT. Sodium initially improved, but worse again this morning. She is feeding herself. On presentation very sluggish and slow to respond. Her friend who brought her to ER reported that she was better several days ago ( her usual self ). Altered mental status possibly secondary to dehydration with spironolactone, perhaps inadequate oral hydration, hyponatremia, and polypharmacy. Hyponatremia appears to be gradually improving. Dehydration is better. Will reduce Wellbutrin dose to 150. Reduce trazodone dose to 100 as she is also on escitalopram. Consider further de-escalating and stopping any medications that can be stopped. This appears to be a somewhat recurrent issue with her as she has had 2 prior admissions last summer in July and September also with complaints of altered mental status. Dehydration appears better. She is now eating herself. Hold spironolactone. Hypotension improved. She is also complaining of pain in her lower extremities, with difficulty walking, has had history of rhabdomyolysis in the past, with dehydration, acute kidney injury, statin. Normal CK. However, statin myopathy may still be a consideration in the setting of normal CK, may have contributed to her lower extremity pain, difficulty walking. Consider de-escalating dose. Normal TSH. At this time treat underlying problems as below. We will also get PT and OT assessment. Would discontinue spironolactone. Status: Acute (2) Hyponatremia: Initially improved, then somewhat better again this morning. Encourage oral nutrition hydration. Hold diuretic. We will add sodium chloride tablets. Reassess. Status: Acute (3) GEM (acute kidney injury): Improved. Received fluid challenge. Hold diuretic. Encourage oral nutrition hydration. Reassess renal function, CANDACE. Status: Acute (4) Polypharmacy: She is on quite a few medications, would benefit from review and tapering down except for those absolutely necessary. Status: Acute (5) Acquired cerebral ventriculomegaly: Ventricular megaly and cerebral atrophy noted incidentally on CT. She is found to be somewhat unsteady on her feet in ER. She does say that usually she gets around by herself. I suspect her balance issues are related to similar problems as encephalopathy as above, she does report some pain in her legs as well, and so this may be somewhat more acute issue. If there are problems with balance that are persistent, in view also her dementia, would pursue additional assessment by neurology with consideration of LP for evaluation of possible NPH, although this is probably less likely as she does have reasons for ventriculomegaly, and atrophy appears to be generalized. Status: Acute (6) Dementia: Noted. Status: Chronic Qualifiers: Dementia type: unspecified type Dementia behavioral disturbance: without behavioral disturbance Qualified Code(s): F03.90 - Unspecified dementia without behavioral disturbance (7) Leg pain: Reports bilateral lower extremity muscle pain. Normal CK, which is reassuring as she has had history of rhabdomyolysis, however, still does not exclude statin myopathy. Would consider decreasing the dose, or if again symptomatic discontinuing. Status: Acute (8) Hypokalemia: Potassium replacement. Resume losartan as kidney injury has resolved. Would avoid further spironolactone given dehydration, hyponatremia. 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 Denies taking any extra medications. HLD Depression PTSD Attestations Medical Necessity Statement*: Continue admission for assessment of management of acute encephalopathy with symptomatic hyponatremia, optimization of psychiatric medications with polypharmacy. Coding Level of Care Code Acute Director Talent for [facility] Fwd Diagnoses Acute encephalopathy G93.40 Hyponatremia E87.1 GEM (acute kidney injury) N17.9 Polypharmacy Z79.899 Acquired cerebral ventriculomegaly G91.1 Dementia F03.90 Dementia type: unspecified type Dementia behavioral disturbance: without behavioral disturbance Leg pain M79.606 Hypokalemia E87.6
[2019-11-16 21:34] LABS: Glucose Point of Care 137 mg/dL (70-110)
[2019-11-16] MEDS: sodium chloride 1 gm Tablet PO (21:50)
[2019-11-17] VITALS (8 sets, daily range): BP systolic 105–137; BP diastolic 62–80; PULSE 57–80; RESP 15–20; TEMP 36.3–36.9; O2SAT 94–98
[2019-11-17] MEDS: heparin 5,000 unit/mL INJ 1 mL 5000 UNIT SUBCUT ×3 (01:36→18:38)
[2019-11-17 06:42] LABS: Glucose Point of Care 104 mg/dL (70-110)
[2019-11-17] MEDS: buPROPion XL (24 HR) 150 mg Tablet PO (08:52)
[2019-11-17] MEDS: risperiDONE 2 mg Tablet PO ×2 (08:53→18:38)
[2019-11-17] MEDS: potassium chloride ER 10 mEq Tablet 40 MEQ PO (08:53)
[2019-11-17] MEDS: famotidine 20 mg Tablet PO (08:53)
[2019-11-17] MEDS: escitalopram 10 mg Tablet 20 MG PO (08:53)
[2019-11-17] MEDS: aspirin 81 mg EC Tablet PO (08:53)
[2019-11-17] MEDS: memantine 5 mg tablet 10 MG PO (08:53)
[2019-11-17] MEDS: losartan 50 mg Tablet 25 MG PO ×2 (08:54→18:38)
[2019-11-17] MEDS: sodium chloride 1 gm Tablet PO ×2 (08:58→18:38)
[2019-11-17 11:15] LABS: Glucose Point of Care 96 mg/dL (70-110)
--- NOTE | 2019-11-17 14:48 | PC.RESP ---
PULMONARY REHAB INFORMATION SENT TO PATIENT.
--- NOTE | 2019-11-17 17:18 | P.PN_ITS ---
Subjective Subjective: Interval history: Patient is able to correctly state her name age and date of for me. She is alert awake and oriented. Per PT she was able to participate and walk 200 feet. 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 Patient was able to correctly tell me her name age and date of . She walked 200 feet with PT and was steady on her feet today. Looks forward to going home soon. Altered mental status possibly secondary to dehydration with spironolactone, perhaps inadequate oral hydration, hyponatremia, and polypharmacy. Hyponatremia appears to be gradually improving. Will reduce Wellbutrin dose to 150. Reduce trazodone dose to 100 as she is also on escitalopram. Start po salt tablets This appears to be a somewhat recurrent issue with her as she has had 2 prior admissions last summer in July and September also with complaints of altered mental status. Dehydration appears better. She is now eating herself. Hold spironolactone. Hypotension improved. She is also complaining of pain in her lower extremities, with difficulty walking, has had history of rhabdomyolysis in the past, with dehydration, acute kidney injury, statin. Normal CK. However, statin myopathy may still be a con sideration in the setting of normal CK, may have contributed to her lower extremity pain, difficulty walking. Consider de-escalating dose. Normal TSH. At this time treat underlying problems as below. continue PT and OT assessment. Status: Acute (2) Hyponatremia: Initially improved, then somewhat better again this morning. Encourage oral nutrition hydration. Hold diuretic. We will add sodium chloride tablets. Reassess. Status: Acute (3) GEM (acute kidney injury): Improved. Received fluid challenge. Hold diuretic. Encourage oral nutrition hydration. Reassess renal function, CANDACE. Status: Acute (4) Polypharmacy: She is on quite a few medications, would benefit from review and tapering down except for those absolutely necessary. Status: Acute (5) Acquired cerebral ventriculomegaly: Ventricular megaly and cerebral atrophy noted incidentally on CT. She is found to be somewhat unsteady on her feet in ER. She does say that usually she gets around by herself. I suspect her balance issues are related to similar problems as encephalopathy as above, she does report some pain in her legs as well, and so this may be somewhat more acute issue. If there are problems with balance that are persistent, in view also her dementia, would pursue additional assessment by neurology with consideration of LP for evaluation of possible NPH, although this is probably less likely as she does have reasons for ventriculomegaly, and atrophy appears to be generalized. Status: Acute (6) Dementia: Noted. Status: Chronic Qualifiers: Dementia type: unspecified type Dementia behavioral disturbance: [facility] behavioral disturbance Qualified Code(s): F03.90 - Unspecified dementia without behavioral disturbance (7) Leg pain: Reports bilateral lower extremity muscle pain. Normal CK, which is reassuring as she has had history of rhabdomyolysis, however, still does not exclude statin myopathy. Would consider decreasing the dose, or if again s ymptomatic discontinuing. Status: Acute (8) Hypokalemia: Potassium replacement. Resume losartan as kidney injury has resolved. Would avoid further spironolactone given dehydration, hyponatremia. 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 Denies taking any extra medications. HLD Depression PTSD Attestations Medical Necessity Statement*: hyponatremia at 126, patiemnt slowly improving. 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
[2019-11-17 18:58] LABS: Glucose Point of Care 106 mg/dL (70-110)
[2019-11-17] MEDS: donepezil 5 MG Tablet 10 MG PO (20:36)
[2019-11-17] MEDS: trazodone 100 mg Tablet PO (20:36)
[2019-11-18] VITALS (9 sets, daily range): BP systolic 102–131; BP diastolic 54–86; PULSE 69–76; RESP 16–18; TEMP 36.4–36.8; O2SAT 93–97
[2019-11-18] MEDS: heparin 5,000 unit/mL INJ 1 mL 5000 UNIT SUBCUT ×2 (02:46→07:54)
[2019-11-18 05:26] LABS: Basophils % 0.5 %; Eosinophils # 0.1 10^3/uL (0.0-0.8); Eosinophils % 2.7 %; Hematocrit 34.6 % (37.0-47.0); Hemoglobin 11.5 g/dL (11.5-15.3); Lymphocytes # 1.2 10^3/uL (0.8-4.8); Lymphocytes % 26.3 %; Mean Corpuscular HGB Conc 33.2 g/dL (30.0-36.0); Mean Corpuscular Hemoglobin 29.9 pg (28.0-34.0); Mean Corpuscular Volume 89.9 fL (81-99); Mean Platelet Volume 9.3 fL (7.4-10.4); Monocytes # 0.9 10^3/uL (0.2-0.9); Monocytes % 19.7 %; Neutrophils # 2.15 10^3/uL (1.8-7.7); Neutrophils % 48.8 %; Nucleated Red Blood Cells % 0 %; Platelet Count 284 10^3/cmm (130-400); Red Blood Count 3.85 10^6/uL (4.1-5.3); Red Cell Distribution Width 12.7 % (12.1-15.1); White Blood Count 4.4 10^3/uL (4.0-10.0)
--- NOTE | 2019-11-18 05:34 | PC.NURSE ---
Patient has mainly slept through the night. With the use of the walker, the patient was able to ambulate to the bathroom. She had one incontinent moment during the shift. Patient was able to answer questions appropriately.
[2019-11-18 05:37] LABS: Alanine Aminotransferase 13 U/L (0-33); Albumin Level 3.8 g/dL (3.5-5.2); Alkaline Phosphatase 78 IU/L (35-105); Anion Gap 14.3 (5-19); Aspartate Amino Transferase 16 U/L (0-32); Blood Urea Nitrogen 12 mg/dL (8-23); Calcium 9.7 mg/dL (8.5-10.5); Carbon Dioxide 22 mmol/L (22-29); Chloride 98 mmol/L (98-107); Creatinine Clr Calc Pharmacy 71.2225; Globulin 2.3 g/dL (1.3-4.6); Glucose 98 mg/dL (65-115); Osmolality Calculated 272 mOsm/kg (285-295); Potassium 3.3 mmol/L (3.5-5.1); Sodium 131 mmol/L (136-145); Total Bilirubin 0.2 mg/dL (0.15-1.2); Total Protein 6.1 g/dL (6.6-8.7)
--- NOTE | 2019-11-18 05:37 | PC.NURSE ---
total trips to bathroom
[2019-11-18] MEDS: aspirin 81 mg EC Tablet PO (07:51)
[2019-11-18] MEDS: risperiDONE 2 mg Tablet PO (07:51)
[2019-11-18] MEDS: escitalopram 10 mg Tablet 20 MG PO (07:51)
[2019-11-18] MEDS: buPROPion XL (24 HR) 150 mg Tablet PO (07:51)
[2019-11-18] MEDS: losartan 50 mg Tablet 25 MG PO (07:52)
[2019-11-18] MEDS: memantine 5 mg tablet 10 MG PO (07:52)
[2019-11-18] MEDS: famotidine 20 mg Tablet PO (07:53)
[2019-11-18] MEDS: sodium chloride 1 gm Tablet PO (07:53)
[2019-11-18] MEDS: potassium chloride ER 10 mEq Tablet 40 MEQ PO (07:53)
--- NOTE | 2019-11-18 10:39 | PC.SOCIAL ---
Pg 2 IMM. Explained to pt Pg 2 IMM. No questions voiced. Provided pt a copy. Signed, dated, & timed a copy & placed in chart.
[2019-11-18 11:49] LABS: Glucose Point of Care 91 mg/dL (70-110)
--- NOTE | 2019-11-18 14:50 | PM.DCS ---
Discharge Providers Date of Admission: 11/15/19 14:51 Date of Discharge: November 18, 2019 Attending Provider at Admission: Lucho Zamarripa Attending Provider at Discharge: Afia Isaac MD Primary Care Provider: Jamaal Blake MD Diagnoses at Discharge Discharge Diagnosis (1) Acute encephalopathy: Status: Acute (2) Hyponatremia: Status: Acute (3) GEM (acute kidney injury): Status: Acute (4) Polypharmacy: Status: Acute (5) Acquired cerebral ventriculomegaly: Status: Acute (6) Dementia: Status: Chronic Qualifiers: Dementia behavioral disturbance: without behavioral disturbance Dementia type: unspecified type Qualified Code(s): F03.90 - Unspecified dementia without behavioral disturbance (7) Leg pain: Status: Acute (8) Hypokalemia: Status: Acute Reason for Visit Reason for Visit: high bp Hospital Course Discharge Summary: 64 year old lady was brought in to the ER by her friend on 11/14 due to not acting right . Hospital course as below: (1) Acute encephalopathy: Altered mental status possibly secondary to dehydration with spironolactone, perhaps inadequate oral hydration, hyponatremia, and polypharmacy. Hyponatremia appears to be gradually improving, now at 131. Several medication adjustments made as well including reduce Wellbutrin dose to 150. Reduce trazodone dose to 100 as she is also on escitalopram. This appears to be a somewhat recurrent issue with her as she has had 2 prior admissions last summer in July and September also with complaints of altered mental status. Dehydration appears better. She is now eating herself. Hypotension improved. She is also complaining of pain in her lower extremities, with difficulty walking, has had history of rhabdomyolysis in the past, with dehydration, acute kidney injury, statin. Normal CK. However, statin myopathy may still be a consideration in the setting of normal CK Atorvastatin reduced to 10mg po qd. TSH WNL (2) Hyponatremia: Improved to 131 at time of discharge. (3) GEM (acute kidney injury): Improved. Received fluid challenge. Hold diuretic. Encourage oral nutrition hydration. (4) Polypharmacy: Medicatiosn adjusted as above (5) Acquired cerebral ventriculomegaly: Ventricular megaly and cerebral atrophy noted incidentally on CT. She is found to be somewhat unsteady on her feet in ER. Did well with PT/OT, ambulating at baseline at time of discharge. (6) Dementia: (8) Hypokalemia: Potassium replacement. Stopped spironolactone given dehydration, hyponatremia. 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 Urinary Catheter Management^: Her: Cath Placed During This Visit: yes Urinary Catheter Date of Insertion: 11/15/19 Urinary Catheter Time of Insertion: 15:00 Discharge Data Data Completed and Pending: Completed Studies During Hospitalization Category Date Time Status CT head wo con* 7 [id number] Stat Cat Scan 11/15/19 11:59 Completed XR chest 1V buck ble [id number] Stat Exams 11/15/19 11:59 Completed Labs from last 24 hours 11/18/19 11/18/19 11/18/19 11:34 04:49 04:49 WBC 4.4 RBC 3.85 L Hgb 11.5 Hct 34.6 L MCV 89.9 MCH 29.9 MCHC 33.2 RDW 12.7 Plt Count 284 MPV 9.3 Neut % (Auto) 48.8 Lymph % (Auto) 26.3 [place] % (Auto) 19.7 Eos % (Auto) 2.7 Baso % (Auto) 0.5 Neut # (Auto) 2.15 Lymph # (Auto) 1.2 [place] # (Auto) 0.9 Eos # (Auto) 0.1 Baso # (Auto) 0.0 Nucleated RBC % (a uto) 0 Nucleated RBCs # 0.0 Sodium 131 L Potassium 3.3 L Chloride 98 Carbon Dioxide 22 Anion Gap 14.3 BUN 12 Creatinine 0.8 GFR Calculation 72.0 L Glucose 98 POC Glucose 91 Calculated Osmolal ity 272 L Calcium 9.7 Total Bilirubin 0.2 AST 16 ALT 13 Alkaline Phosphata se 78 Total Protein 6.1 L Albumin 3.8 Globulin 2.3 11/17/19 17:10 WBC RBC Hgb Hct MCV MCH MCHC RDW Plt Count MPV Neut % (Auto) Lymph % (Auto) [place] % (Auto) Eos % (Auto) Baso % (Auto) Neut # (Auto) Lymph # (Auto) [place] # (Auto) Eos # (Auto) Baso # (Auto) Nucleated RBC % (a uto) Nucleated RBCs # Sodium Potassium Chloride Carbon Dioxide Anion Gap BUN Creatinine GFR Calculation Glucose POC Glucose 106 Calculated Osmolal ity Calcium Total Bilirubin AST ALT Alkaline Phosphata se Total Protein Albumin Globulin Vitals: Last Vital Signs Temp 97.8 F 11/18/19 13:56 Pulse 69 11/18/19 13:56 Resp 16 11/18/19 13:56 BP 102/54 11/18/19 13:56 Pulse Ox 96 11/18/19 11:38 Discharge Plan Discharge Patient Disposition: Home Condition: Stable Prescriptions: Continued risperidone 2 mg tablet 2 mg PO BID Qty: 60 RF: 2 memantine [Namenda] 10 mg tablet 10 mg PO DAILY 30 Days Qty: 30 RF: 2 escitalopram oxalate [Lexapro] 20 mg tablet 20 mg PO DAILY 30 Days Qty: 30 RF: 2 donepezil [Aricept] 10 mg tablet 10 mg PO BEDTIME 30 Days Qty: 30 RF: 2 famotidine 20 mg Tablet 20 mg PO DAILY 30 Days Qty: 30 RF: 0 albuterol sulfate [Ventolin HFA] 90 mcg/actuation HFA aerosol inhaler 2 inh INHALATION Q6H PRN (Reason: shortness of breath or wheezing) Qty: 8.5 RF: 0 Anoro Ellipta 62.5-25 mcg/actuation blister with device 1 inh INHALATION DAILY RF: 0 aspirin 81 mg Tablet,Delayed Release (Dr/Ec) 81 mg PO DAILY Qty: 30 RF: 0 albuterol sulfate 2.5 mg /3 mL (0.083 %) solution for nebulization 2.5 mg inhalation Q6H PRN (Reason: Shortness Of Breath) RF: 0 losartan 25 mg tablet 25 mg PO BID RF: 0 Changed atorvastatin 40 mg tablet 10 mg PO DAILY Qty: 0 RF: 0 trazodone 150 mg tablet 100 mg PO BEDTIME Qty: 0 RF: 0 Wellbutrin XL 300 mg tablet extended release 24 hr 150 mg PO DAILY Qty: 30 RF: 2 Discontinued amlodipine 5 mg tablet 5 mg PO DAILY RF: 0 loratadine [Claritin] 10 mg Tablet 10 mg PO DAILY RF: 0 atorvastatin 40 mg Tablet 40 mg PO BEDTIME Qty: 30 RF: 0 potassium chloride 10 mEq Tablet Extended Release 40 meq PO BID Qty: 60 RF: 0 spironolactone 25 mg tablet 25 mg PO BID RF: 0 Discharge Orders: Discharge Order (Routine); Ordered 11/18/19 Ordered By: Afia Isaac Referrals: Jamaal Blake MD [Primary Care Provider] - 11/25/19 9:45 am (hospital discharge follow up, adjustment of several medications done inpatient) Discharge Diet: Usual diet Discharge Activity: Resume usual activity Patient Instructions: Hypokalemia, Hyponatremia, Acute Kidney Injury (DC) Discharge Date/Time: 11/18/19 16:39 Discharge Attestations Time Spent in Discharge Care*: greater than 30 min Status at Discharge: Cognitive status at discharge: cognitively intact, Behavioral status at discharge: cooperative, Quality Metrics Clinical Quality Measures During this hospital stay, did patient experience: None Coding Level of Care Code Acute 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
== END 2019-11-18 16:39 | disposition home or self-care (01) | DRG 640 ==
LOC: ER 12:22 → MEDSURG 15:29
PROVIDERS: Emergency Medicine; Admitting Provider Internal Medicine; PCP Family Medicine; Visit Provider Student in an Organized Health Care Education/Training Program
DX: E87.1 Hypo-osmolality and hyponatremia (principal); G92 Toxic encephalopathy; N17.9 Acute kidney failure, unspecified; I69.954 Hemiplegia and hemiparesis following unspecified cerebrovascular disease affecting left non-dominant side; E86.0 Dehydration; J44.9 Chronic obstructive pulmonary disease, unspecified; F03.90 Unspecified dementia, unspecified severity, without behavioral disturbance, psychotic disturbance, mood disturbance, and anxiety; I10 Essential (primary) hypertension; F33.41 Major depressive disorder, recurrent, in partial remission; E66.9 Obesity, unspecified; Z68.34 Body mass index [BMI] 34.0-34.9, adult; F43.12 Post-traumatic stress disorder, chronic; G25.81 Restless legs syndrome; E55.9 Vitamin D deficiency, unspecified; Z87.891 Personal history of nicotine dependence; G93.89 Other specified disorders of brain; M79.605 Pain in left leg; M79.604 Pain in right leg; Z79.899 Other long term (current) drug therapy; Z79.51 Long term (current) use of inhaled steroids; Z79.82 Long term (current) use of aspirin
CPT/HCPCS: 12345; 36415; 36416; 51702; 70450; 71045; 80048; 80053; 80307; 81001; 82550; 82962; 83605; 83735; 84145; 84295; 84443; 85025; 85610; 85730; 86140; 87426; 93005; 96372; 97116; 97161; 97165; 97530; 97535; 99284; J1644; J3475; J3480; J7030

== ENCOUNTER 2019-11-19 14:56 | Outpatient (CLI) | payer MEDICARE, MEDICAID, SELFPAY ==
--- NOTE | 2019-11-19 15:08 | MM_ITS ---
WS: [id number] BILATERAL SCREENING DIGITAL MAMMOGRAM WITH CAD HISTORY: SCREENING COMPARISON: 10/17/2017, 11/12/2018 Bilateral CC and MLO views submitted. Computer aided detection analyzed. Breast composition: There are scattered areas of fibroglandular density. No suspicious masses, microc alcifications or architectural distortion. 6 mm nodule at 11:00 is unchanged. Fatty hilum consistent with a lymph node. MM/[place] [id number] IMPRESSION: BI-RADS: 2-Benign FOLLOW UP: 1 Year Follow-up
== END 2019-11-19 14:57 | disposition home or self-care (01) ==
LOC: RADSHAW 15:02
PROVIDERS: PCP Family Medicine; Visit Provider Family Medicine
DX: Z12.31 Encounter for screening mammogram for malignant neoplasm of breast (principal)
CPT/HCPCS: 77067

== ENCOUNTER → 2019-11-27 08:37 | Outpatient (BNVA) | payer MEDICARE, MEDICAID, SELFPAY | PROVIDERS: PCP Family Medicine; Visit Provider Nurse Practitioner | DX: F43.12 Post-traumatic stress disorder, chronic (principal); F33.41 Major depressive disorder, recurrent, in partial remission | CPT/HCPCS: 99214 ==

== ENCOUNTER 2019-12-05 17:58 | Observation (INO) | payer MEDICARE, MEDICAID, SELFPAY ==
[2019-12-05] VITALS (9 sets, daily range): BP systolic 98–144; BP diastolic 64–97; PULSE 57–96; RESP 16–18; TEMP 36.7–36.8; O2SAT 92–97; BMI 37.0
--- NOTE | 2019-12-05 18:35 | ED_ITS ---
Documented by User: Liya Jenkins 12/05/19 21:56 HPI - General Adult General: Source: patient Mode of arrival: ambulatory Limitations: no limitations History of Present Illness: HPI narrative: Nel is a 64-year-old female who comes in telling me that she was told to come to the hospital because her potassium was low. She stated that she had her blood tested approximately 2 weeks ago at [facility] and they called her today letting her know her potassium was low and she needed to go to the hospital to get it evaluated. The patient is alert and oriented x3 but is slow to answer questions. She has a flat affect and does not offer any information spontaneously. She denies being in pain and states that she does not feel sick. She is alert to person, place, time and situation. She just is slow to initiate an answer but when answering her answers are appropriate in speed and accuracy. Patient denies any other complaints. Associated symptoms: Deny chest pain, confusion, diaphoresis, dyspnea, headache(s), malaise, nausea, rash, palpitations, syncope or vomiting Review of Systems Const: Denies: fever(s), chills, body aches, fatigue, malaise or diaphoresis Eyes: Denies: change in vision, blurry vision, photophobia, eye discomfort, eye discharge, eye redness or yellow eyes ENMT: Denies: throat pain, odynophagia, hoarseness, swelling of lips/tongue, ear or mastoid pain, ear discharge, change in hearing or nasal discharge Card: Denies: chest pain, palpitations, irregular heart rhythm, edema, lightheadedness, syncope, pre-syncope, dyspnea on exertion or orthopnea Resp: Denies: dyspnea, productive cough, non-productive cough, wheezing, hemoptysis or chest congestion GI: Denies: abdominal pain, nausea, vomiting, hematemesis, coffee ground emesis, heartburn, diarrhea, constipation, GI cramping, hematochezia or melena : Denies: flank pain, dysuria, urinary frequency, urinary urgency or hematuria Musc: Denies: neck pain, back pain, extremity pain, extremity swelling, joint pain, joint swelling, joint redness, joint warmth or joint stiffness Skin/Breast: Denies: rash, pruritus, erythema, skin pain or skin tenderness Neuro: Denies: headache(s), numbness in extremities, weakness in extremities, sensory changes, lack of coordination, difficulty walking, dizziness, vertigo, confusion, Slurred speech present or seizure-like activity Onur/Lymph: Denies: easy bruising, easy bleeding, petechiae, purpura or enlarged lymph nodes All/Imm: Denies: urticaria, throat swelling, tongue swelling, facial swelling or acute wheezing PFSH ED PFSH: Medical History COPD (chronic obstructive pulmonary disease) diagnosis as per patient, remote smoker, PFTs without demonstrated obstructive component 02/24 Dementia Dyslipidemia History of pulmonary function tests (~02/2019) mild restrictive ventilatory defect, improved with bronchodilator, elevated RV/TLC, nl DLCO Hypertension Controlled Major depressive disorder, recurrent, in partial remission Obesity (BMI 30.0-34.9) Post-traumatic stress disorder, chronic Restless leg syndrome Vitamin D deficiency Surgical History H/O section History of carpal tunnel release History of hysterectomy Family History Other Psychiatric illness Social History Smoking and tobacco status: former smoker Quit status (tobacco): has quit using tobacco Former quit date comment: 20 ya Alcohol intake: never Lives independently: Yes Household members: family and other Details: Daughter lives 7 stories above her Current occupational status: disabled Female Reproductive History: Para: 4 Physical Exam Const: COMMON NORMALS: no acute distress, patient oriented x3, no limitations and alert GENERAL APPEARANCE: cooperative HENMT: COMMON NORMALS: normocephalic, atraumatic, external ears normal, EAC's normal and Normal external nose present HEAD & SCALP: normal to inspection, normocephalic and atraumatic FACE & SINUS: normal facial exam and face symmetric NOSE: Normal external nose present and Normal nares present EXTERNAL EAR: Yes external ears normal EXTERNAL AUDITORY CANAL: EAC's normal MOUTH: Normal oral and palatal mucosa present, lip normal and tongue normal Eye: COMMON NORMALS: Equal, round and reactive pupils present and conjunctivae normal GENERAL EYE: appearance normal, both eyes and all related structures ALIGNMENT: Yes alignment normal PERIORBITAL: periorbital findings normal EYELID: eyelids normal CONJUNCTIVA: Yes conjunctivae normal SCLERA: sclerae normal PUPIL: Yes Equal, round and reactive pupils present Neck/C-Spine: COMMON NORMALS: full ROM, no lymphadenopathy, supple, no meningeal signs and no JVD GENERAL: Yes normal visual inspection and Yes trachea midline Chest: COMMONS NORMALS: normal inspection of the chest and normal palpation of entire chest wall Resp: COMMON NORMALS: normal respiratory effort, No retractions, No use of accessory muscles and clear to auscultation bilaterally EFFORT & INSPECTION: Yes able to speak in complete sentences and Yes symmetric chest movement AUSCULTATION: clear to auscultation bilaterally, no crackles, no rales, no rhonchi and no wheezes Cardio: COMMON NORMALS: no JVD, regular rate, regular rhythm, S1 normal heart sound present and S2 normal heart sound present RATE: regular rate RHYTHM: regular rhythm HEART SOUNDS: S1 normal heart sound present, S2 normal heart sound present, no click, no gallops, no murmurs and no rubs GI: COMMON NORMALS: Soft to palpation and No hepatosplenomegaly present PALPATION: Yes Soft to palpation, No Tenderness to palpation present (GI), No Guarding due to palpation present (GI), No Rigid due to palpation, Yes No hepatosplenomegaly present, No Hernia present, No Palpable mass present and No Pulsatile mass present : COMMON NORMALS: Yes no CVA tenderness BLADDER/KIDNEY EXAM: Yes no CVA tenderness EXTERNAL FEMALE EXAM: No Hernia present Back/Pelvis: COMMON NORMALS: no CVA tenderness, thoracic and lumbar spine normal to inspection, no thoracic nor lumbar tenderness and thoraco-lumbar ROM normal Extremity: COMMON NORMALS: normal to inspection, full ROM, capillary refill normal, no joint enlargement, no clubbing, cyanosis or edema and no calf tenderness Neuro: COMMON NORMALS: patient oriented x3, CN's II-XII intact bilaterally, moves all extremities, no focal motor deficits and no sensory deficits noted SENSORIUM/ORIENTATION: Yes alert MENINGEAL SIGNS: Yes no meningeal signs S PEECH: speech normal Psych: COMMON NORMALS: mental status grossly normal, Normal thought process present, cooperative, normal affect, speech normal and activity/motor behavior normal SPEECH: Yes normal speech THOUGHT PROCESS: Normal thought process present Skin: COMMON NORMALS: no rashes or lesions noted, turgor normal, no jaundice, no petechiae and no mottling GENERAL SKIN EXAM: no rashes or lesions noted and turgor normal Course Vital Signs: Vital signs: Vital Signs Temperature 98.1 F 12/05/19 18:14 Pulse Rate 67 12/05/19 22:10 Respiratory Rate 16 12/05/19 22:10 Blood Pressure 108/64 12/05/19 22:10 Pulse Oximetry 94 12/05/19 22:10 MDM - General Adult MDM Narrative: Medical decision making narrative: Arrival -patient comes in with a reported complaint of low potassium. She seems slightly altered in the sense that she is slow to answer questions. Per review of the chart she does have history of dementia and depression. She also has COPD. It could be that she is sedated but not to a dangerous effect at least at this point. I will initiate a work-up for altered mental status. Admission -Nel is a 64-year-old female who comes in with altered mental status. If you review her last admission this month for the same problem she sounds today exactly like she did previously. Patient appears dehydrated, she is hypokalemic and hyponatremic. She is slow to answer questions but as time is gone on here she does appear mildly confused but not significantly. I have tried to reach out to family to discuss her baseline but have been unable to reach them. When we got the patient up to ambulate her she did not appear steady on her feet I believe she is a fall risk. I reviewed this all with Dr. Anthony and he agrees to watch the patient overnight continue IV hydration, potassium replacement and we will continue to watch for her urinalysis results to see if the UTI could be contributing to her encephalopathy. She does not appear to be septic at this time. Lab Data: Labs: Lab Results 12/05/19 12/05/19 12/05/19 Range/Units 18:39 19:36 19:36 WBC 5.1 (4.0-10.0) 10^3/ uL RBC 4.12 (4.1-5.3) 10^6/u L Hgb 12.2 (11.5-15.3) g/dL Hct 36.6 L (37.0-47.0) % MCV 88.8 (81-99) fL MCH 29.6 (28.0-34.0) pg MCHC 33.3 (30.0-36.0) g/dL RDW 12.4 (12.1-15.1) % Plt Count 297 (130-400) 10^3/c mm MPV 9.2 (7.4-10.4) fL Neut % (Auto) 63.2 % Lymph % (Auto) 17.5 % [place] % (Auto) 16.5 % Eos % (Auto) 1.2 % Baso % (Auto) 0.6 % Neut # (Auto) 3.21 (1.8-7.7) 10^3/u L Lymph # (Auto) 0.9 (0.8-4.8) 10^3/u L [place] # (Auto) 0.8 (0.2-0.9) 10^3/u L Eos # (Auto) 0.1 (0.0-0.8) 10^3/u L Baso # (Auto) 0.0 (0.0-0.1) 10^3/u L Nucleated RBC % (a uto) 0 % Nucleated RBCs # 0.0 /100WBC PT 13.10 (12.1-14.9) SECO NDS INR 0.96 (0.8-1.2) D-Dimer 0.29 (0-0.59) ug/mIFE U Specimen Type Arterial Sample Site Radial, left ABG pH 7.42 (7.35-7.45) ABG pCO2 35.6 (35-45) mmHg ABG pO2 79.0 L (80.0-100.0) mmH g ABG HCO3 23.1 (22-26) mmol/L ABG Base Excess -1.0 (-2.0-2.0) mmol/ L Froylan Test Pos Hematocrit 38.8 (37-47) % O2 Delivery Device Room air FiO2 21.0 % Mechanical Systems Engineer ID Cak Sodium (136-145) mmol/L Potassium (3.5-5.1) mmol/L Chloride (98-107) mmol/L Carbon Dioxide (22-29) mmol/L Anion Gap (5-19) BUN (8-23) mg/dL Creatinine (0.5-0.9) mg/dL GFR Calculation (90-130) mL/min Glucose (65-115) mg/dL Calculated Osmolal ity (285-295) mOsm/k g Lactic Acid (0.5-2.2) mmol/L Calcium (8.5-10.5) mg/dL Magnesium (1.7-2.3) mg/dL Total Bilirubin (0.15-1.2) mg/dL AST (0-32) U/L ALT (0-33) U/L Alkaline Phosphata se (35-105) IU/L Ammonia (11-51) umol/L Creatine Kinase (26-192) U/L Troponin T Baselin e (0-10) ng/L NT-Pro-B Natriuret Pep (0-125) pg/mL Total Protein (6.6-8.7) g/dL Albumin (3.5-5.2) g/dL Globulin (1.3-4.6) g/dL Lipase (13-60) U/L TSH (0.27-4.20) uIU/ mL Free T4 (0.82-1.77) ng/d L Amorphous Sediment Urine Opiates Scre en (Negative) ng/mL Ur Barbiturates Sc reen (Negative) ng/mL Ur Phencyclidine S crn (Negative) ng/mL Ur Amphetamines Sc reen (Negative) ng/mL U Benzodiazepines Scrn (Negative) ng/mL Urine Cocaine Scre en (Negative) ng/mL U Marijuana (THC) Screen (Negative) ng/mL Ethyl Alcohol (0-10) mg/dL Serum Ketones (Negative) Influenza Type A A g (Negative) Influenza Type B A g (Negative) 12/05/19 12/05/19 12/05/19 Range/Units 19:36 19:36 19:36 WBC (4.0-10.0) 10^3/ uL RBC (4.1-5.3) 10^6/u L Hgb (11.5-15.3) g/dL Hct (37.0-47.0) % MCV (81-99) fL MCH (28.0-34.0) pg MCHC (30.0-36.0) g/dL RDW (12.1-15.1) % Plt Count (130-400) 10^3/c mm MPV (7.4-10.4) fL Neut % (Auto) % Lymph % (Auto) % [place] % (Auto) % Eos % (Auto) % Baso % (Auto) % Neut # (Auto) (1.8-7.7) 10^3/u L Lymph # (Auto) (0.8-4.8) 10^3/u L [place] # (Auto) (0.2-0.9) 10^3/u L Eos # (Auto) (0.0-0.8) 10^3/u L Baso # (Auto) (0.0-0.1) 10^3/u L Nucleated RBC % (a uto) % Nucleated RBCs # /100WBC PT (12.1-14.9) SECO NDS INR (0.8-1.2) D-Dimer (0-0.59) ug/mIFE U Specimen Type Sample Site ABG pH (7.35-7.45) ABG pCO2 (35-45) mmHg ABG pO2 (80.0-100.0) mmH g ABG HCO3 (22-26) mmol/L ABG Base Excess (-2.0-2.0) mmol/ L Froylan Test Hematocrit (37-47) % O2 Delivery Device FiO2 % Mechanical Systems Engineer ID Sodium 128 L (136-145) mmol/L Potassium 2.7 L* (3.5-5.1) mmol/L Chloride 95 L (98-107) mmol/L Carbon Dioxide 24 (22-29) mmol/L Anion Gap 11.7 (5-19) BUN 13 (8-23) mg/dL Creatinine 0.6 (0.5-0.9) mg/dL GFR Calculation 100.3 (90-130) mL/min Glucose 98 (65-115) mg/dL Calculated Osmolal ity 266 L (285-295) mOsm/k g Lactic Acid 0.8 (0.5-2.2) mmol/L Calcium 9.7 (8.5-10.5) mg/dL Magnesium 2.0 (1.7-2.3) mg/dL Total Bilirubin 0.2 (0.15-1.2) mg/dL AST 12 (0-32) U/L ALT 10 (0-33) U/L Alkaline Phosphata se 75 (35-105) IU/L Ammonia 55 H (11-51) umol/L Creatine Kinase 41 (26-192) U/L Troponin T Baselin e (0-10) ng/L NT-Pro-B Natriuret Pep 10 (0-125) pg/mL Total Protein 6.2 L (6.6-8.7) g/dL Albumin 4.1 (3.5-5.2) g/dL Globulin 2.1 (1.3-4.6) g/dL Lipase 45 (13-60) U/L TSH 0.69 (0.27-4.20) uIU/ mL Free T4 1.61 (0.82-1.77) ng/d L Amorphous Sediment Urine Opiates Scre en (Negative) ng/mL Ur Barbiturates Sc reen (Negative) ng/mL Ur Phencyclidine S crn (Negative) ng/mL Ur Amphetamines Sc reen (Negative) ng/mL U Benzodiazepines Scrn (Negative) ng/mL Urine Cocaine Scre en (Negative) ng/mL U Marijuana (THC) Screen (Negative) ng/mL Ethyl Alcohol < 10 (0-10) mg/dL Serum Ketones Negative (Negative) Influenza Type A A g (Negative) Influenza Type B A g (Negative) 12/05/19 12/05/19 12/05/19 Range/Units 19:36 19:36 21:23 WBC (4.0-10.0) 10^3/ uL RBC (4.1-5.3) 10^6/u L Hgb (11.5-15.3) g/dL Hct (37.0-47.0) % MCV (81-99) fL MCH (28.0-34.0) pg MCHC (30.0-36.0) g/dL RDW (12.1-15.1) % Plt Count (130-400) 10^3/c mm MPV (7.4-10.4) fL Neut % (Auto) % Lymph % (Auto) % [place] % (Auto) % Eos % (Auto) % Baso % (Auto) % Neut # (Auto) (1.8-7.7) 10^3/u L Lymph # (Auto) (0.8-4.8) 10^3/u L [place] # (Auto) (0.2-0.9) 10^3/u L Eos # (Auto) (0.0-0.8) 10^3/u L Baso # (Auto) (0.0-0.1) 10^3/u L Nucleated RBC % (a uto) % Nucleated RBCs # /100WBC PT (12.1-14.9) SECO NDS INR (0.8-1.2) D-Dimer (0-0.59) ug/mIFE U Specimen Type Sample Site ABG pH (7.35-7.45) ABG pCO2 (35-45) mmHg ABG pO2 (80.0-100.0) mmH g ABG HCO3 (22-26) mmol/L ABG Base Excess (-2.0-2.0) mmol/ L Froylan Test Hematocrit (37-47) % O2 Delivery Device FiO2 % Mechanical Systems Engineer ID Sodium (136-145) mmol/L Potassium (3.5-5.1) mmol/L Chloride (98-107) mmol/L Carbon Dioxide (22-29) mmol/L Anion Gap (5-19) BUN (8-23) mg/dL Creatinine (0.5-0.9) mg/dL GFR Calculation (90-130) mL/min Glucose (65-115) mg/dL Calculated Osmolal ity (285-295) mOsm/k g Lactic Acid (0.5-2.2) mmol/L Calcium (8.5-10.5) mg/dL Magnesium (1.7-2.3) mg/dL Total Bilirubin (0.15-1.2) mg/dL AST (0-32) U/L ALT (0-33) U/L Alkaline Phosphata se (35-105) IU/L Ammonia (11-51) umol/L Creatine Kinase (26-192) U/L Troponin T Baselin e 11 H (0-10) ng/L NT-Pro-B Natriuret Pep (0-125) pg/mL Total Protein (6.6-8.7) g/dL Albumin (3.5-5.2) g/dL Globulin (1.3-4.6) g/dL Lipase (13-60) U/L TSH (0.27-4.20) uIU/ mL Free T4 (0.82-1.77) ng/d L Amorphous Sediment Not Reportable Urine Opiates Scre en (Negative) ng/mL Ur Barbiturates Sc reen (Negative) ng/mL Ur Phencyclidine S crn (Negative) ng/mL Ur Amphetamines Sc reen (Negative) ng/mL U Benzodiazepines Scrn (Negative) ng/mL Urine Cocaine Scre en (Negative) ng/mL U Marijuana (THC) Screen (Negative) ng/mL Ethyl Alcohol (0-10) mg/dL Serum Ketones (Negative) Influenza Type A A g Negative (Negative) Influenza Type B A g Negative (Negative) 12/05/19 Range/Units 21:23 WBC (4.0-10.0) 10^3/ uL RBC (4.1-5.3) 10^6/u L Hgb (11.5-15.3) g/dL Hct (37.0-47.0) % MCV (81-99) fL MCH (28.0-34.0) pg MCHC (30.0-36.0) g/dL RDW (12.1-15.1) % Plt Count (130-400) 10^3/c mm MPV (7.4-10.4) fL Neut % (Auto) % Lymph % (Auto) % [place] % (Auto) % Eos % (Auto) % Baso % (Auto) % Neut # (Auto) (1.8-7.7) 10^3/u L Lymph # (Auto) (0.8-4.8) 10^3/u L [place] # (Auto) (0.2-0.9) 10^3/u L Eos # (Auto) (0.0-0.8) 10^3/u L Baso # (Auto) (0.0-0.1) 10^3/u L Nucleated RBC % (a uto) % Nucleated RBCs # /100WBC PT (12.1-14.9) SECO NDS INR (0.8-1.2) D-Dimer (0-0.59) ug/mIFE U Specimen Type Sample Site ABG pH (7.35-7.45) ABG pCO2 (35-45) mmHg ABG pO2 (80.0-100.0) mmH g ABG HCO3 (22-26) mmol/L ABG Base Excess (-2.0-2.0) mmol/ L Froylan Test Hematocrit (37-47) % O2 Delivery Device FiO2 % Mechanical Systems Engineer ID Sodium (136-145) mmol/L Potassium (3.5-5.1) mmol/L Chloride (98-107) mmol/L Carbon Dioxide (22-29) mmol/L Anion Gap (5-19) BUN (8-23) mg/dL Creatinine (0.5-0.9) mg/dL GFR Calculation (90-130) mL/min Glucose (65-115) mg/dL Calculated Osmolal ity (285-295) mOsm/k g Lactic Acid (0.5-2.2) mmol/L Calcium (8.5-10.5) mg/dL Magnesium (1.7-2.3) mg/dL Total Bilirubin (0.15-1.2) mg/dL AST (0-32) U/L ALT (0-33) U/L Alkaline Phosphata se (35-105) IU/L Ammonia (11-51) umol/L Creatine Kinase (26-192) U/L Troponin T Baselin e (0-10) ng/L NT-Pro-B Natriuret Pep (0-125) pg/mL Total Protein (6.6-8.7) g/dL Albumin (3.5-5.2) g/dL Globulin (1.3-4.6) g/dL Lipase (13-60) U/L TSH (0.27-4.20) uIU/ mL Free T4 (0.82-1.77) ng/d L Amorphous Sediment Urine Opiates Scre en Negative (Negative) ng/mL Ur Barbiturates Sc reen Negative (Negative) ng/mL Ur Phencyclidine S crn Negative (Negative) ng/mL Ur Amphetamines Sc reen Negative (Negative) ng/mL U Benzodiazepines Scrn Negative (Negative) ng/mL Urine Cocaine Scre en Negative (Negative) ng/mL U Marijuana (THC) Screen Negative (Negative) ng/mL Ethyl Alcohol (0-10) mg/dL Serum Ketones (Negative) Influenza Type A A g (Negative) Influenza Type B A g (Negative) Imaging Data^: CXR: Attestation: I personally reviewed and interpreted this imaging study as follows: My impression: No acute cardiopulmonary findings. Scoliosis present. CT Head: Radiologist's impression: [address] [place] [address] CT Scan Report Signed Patient: Nel Porter #: [id number] : 5Acct#:[id number] Age/Sex: 64 / FADM Date: 12/05/19 Loc: ERRoom/Bed: Attending Dr: Ordering Provider/Ordering MD: Liya Jenkins DO Date of Service: 12/05/19 Procedure(s): CT head wo con* [id number] Accession Number(s): [id number] Report Number: [id number] PROCEDURE INFORMATION: Exam: CT Head Without Contrast Exam date and time: 12/05/2019 6:49 PM Age: 64 years old Clinical indication: Altered mental status/memory loss; Patient HX: Per family AMS - slow to respond TECHNIQUE: Imaging protocol: Computed tomography of the head without contrast. Radiation optimization: All CT scans at this facility use at least one of these dose optimization techniques: automated exposure control; mA and/or kV adjustment per patient size (includes targeted exams where dose is matched to clinical indication); or iterative reconstruction. COMPARISON: CT head wo con* [id number] 11/15/2019 12:13 PM RADIATION DOSE METRICS: Total DLP (mGy-cm): 858.4 FINDINGS: Brain: There is volume loss. There is white matter lucency consistent with chronic microvascular disease. There are bilateral subinsular old lacunar infarcts, more extensive. No acute infarct is identified. No evidence cortical infarct. No hemorrhage or extra-axial collection. There is no mass. Cerebral ventricles: No ventriculomegaly. Bones/joints: Unremarkable. No acute fracture. Paranasal sinuses: Visualized sinuses are unremarkable. No fluid levels. Mastoid air cells: Visualized mastoid air cells are well aerated. Soft tissues: Unremarkable. CT/CT head wo con* [id number] IMPRESSION: 1. There is chronic microvascular disease with old lacunar infarcts. 2. No acute intracranial lesion or injury. No change from prior scan. Radiation Dose CTDIVOL = (mGy): DLP = 858.4 (mGy-cm) Dictated By:Joseph Lopez MD Signed By:Joseph Lopez Date/Time:12/05/191924 DD/ 22 EKG Data^: EKG 1: Attestation: I personally reviewed and interpreted this EKG as follows: EKG interpretation date: 12/05/19 EKG interpretation time: 18:45 Interpretation: Normal sinus rhythm at 71 beats a minute, right bundle branch block,, unchanged from previous. Computer generated interpretation: Chest X-Ray 12/05/19 18:36 IMPRESSION: No acute findings. Head CT 12/05/19 18:36 IMPRESSION: 1. There is chronic microvascular disease with old lacunar infarcts. 2. No acute intracranial lesion or injury. No change from prior scan. Radiation Dose CTDIVOL = (mGy): DLP = 858.4 (mGy-cm) Discharge Plan Discharge Patient Disposition: Placed in Observation Admit Provider: Macy Anthony Clinical Impression: Acute alteration in mental status, Acute hyponatremia, Acute hypokalemia Condition: Stable Referrals: Jamaal Blake MD [Primary Care Provider] - Discharge Date/Time: 12/05/19 22:26 Coding Level of Care Code ED Checker Loader for Chg Fwd Exam Comprehensive Documented by User: Macy Anthony MD 12/05/19 22:33 PFSH ED PFSH: Medical History COPD (chronic obstructive pulmonary disease) diagnosis as per patient, remote smoker, PFTs without demonstrated obstructive component 02/24 Dementia Dyslipidemia History of pulmonary function tests (~02/2019) mild restrictive ventilatory defect, improved with bronchodilator, elevated RV/TLC, nl DLCO Hypertension Controlled Major depressive disorder, recurrent, in partial remission Obesity (BMI 30.0-34.9) Post-traumatic stress disorder, chronic Restless leg syndrome Vitamin D deficiency Surgical History H/O section History of carpal tunnel release History of hysterectomy Family History Other Psychiatric illness Social History Smoking and tobacco status: former smoker Quit status (tobacco): has quit using tobacco Former quit date comment: 20 ya Alcohol intake: never Lives independently: Yes Household members: family and other Details: Daughter lives 7 stories above her Current occupational status: disabled Course Vital Signs: Vital signs: Vital Signs Temperature 98.1 F 12/05/19 18:14 Pulse Rate 67 12/05/19 22:10 Respiratory Rate 16 12/05/19 22:10 Blood Pressure 108/64 12/05/19 22:10 Pulse Oximetry 94 12/05/19 22:10 MDM - General Adult Lab Data: Labs: Lab Results 12/05/19 12/05/19 12/05/19 Range/Units 18:39 19:36 19:36 WBC 5.1 (4.0-10.0) 10^3/ uL RBC 4.12 (4.1-5.3) 10^6/u L Hgb 12.2 (11.5-15.3) g/dL Hct 36.6 L (37.0-47.0) % MCV 88.8 (81-99) fL MCH 29.6 (28.0-34.0) pg MCHC 33.3 (30.0-36.0) g/dL RDW 12.4 (12.1-15.1) % Plt Count 297 (130-400) 10^3/c mm MPV 9.2 (7.4-10.4) fL Neut % (Auto) 63.2 % Lymph % (Auto) 17.5 % [place] % (Auto) 16.5 % Eos % (Auto) 1.2 % Baso % (Auto) 0.6 % Neut # (Auto) 3.21 (1.8-7.7) 10^3/u L Lymph # (Auto) 0.9 (0.8-4.8) 10^3/u L [place] # (Auto) 0.8 (0.2-0.9) 10^3/u L Eos # (Auto) 0.1 (0.0-0.8) 10^3/u L Baso # (Auto) 0.0 (0.0-0.1) 10^3/u L Nucleated RBC % (a uto) 0 % Nucleated RBCs # 0.0 /100WBC PT 13.10 (12.1-14.9) SECO NDS INR 0.96 (0.8-1.2) D-Dimer 0.29 (0-0.59) ug/mIFE U Specimen Type Arterial Sample Site Radial, left ABG pH 7.42 (7.35-7.45) ABG pCO2 35.6 (35-45) mmHg ABG pO2 79.0 L (80.0-100.0) mmH g ABG HCO3 23.1 (22-26) mmol/L ABG Base Excess -1.0 (-2.0-2.0) mmol/ L Froylan Test Pos Hematocrit 38.8 (37-47) % O2 Delivery Device Room air FiO2 21.0 % Mechanical Systems Engineer ID Cak Sodium (136-145) mmol/L Potassium (3.5-5.1) mmol/L Chloride (98-107) mmol/L Carbon Dioxide (22-29) mmol/L Anion Gap (5-19) BUN (8-23) mg/dL Creatinine (0.5-0.9) mg/dL GFR Calculation (90-130) mL/min Glucose (65-115) mg/dL Calculated Osmolal ity (285-295) mOsm/k g Lactic Acid (0.5-2.2) mmol/L Calcium (8.5-10.5) mg/dL Magnesium (1.7-2.3) mg/dL Total Bilirubin (0.15-1.2) mg/dL AST (0-32) U/L ALT (0-33) U/L Alkaline Phosphata se (35-105) IU/L Ammonia (11-51) umol/L Creatine Kinase (26-192) U/L Troponin T Baselin e (0-10) ng/L NT-Pro-B Natriuret Pep (0-125) pg/mL Total Protein (6.6-8.7) g/dL Albumin (3.5-5.2) g/dL Globulin (1.3-4.6) g/dL Lipase (13-60) U/L TSH (0.27-4.20) uIU/ mL Free T4 (0.82-1.77) ng/d L Amorphous Sediment Urine Opiates Scre en (Negative) ng/mL Ur Barbiturates Sc reen (Negative) ng/mL Ur Phencyclidine S crn (Negative) ng/mL Ur Amphetamines Sc reen (Negative) ng/mL U Benzodiazepines Scrn (Negative) ng/mL Urine Cocaine Scre en (Negative) ng/mL U Marijuana (THC) Screen (Negative) ng/mL Ethyl Alcohol (0-10) mg/dL Serum Ketones (Negative) Influenza Type A A g (Negative) Influenza Type B A g (Negative) 12/05/19 12/05/19 12/05/19 Range/Units 19:36 19:36 19:36 WBC (4.0-10.0) 10^3/ uL RBC (4.1-5.3) 10^6/u L Hgb (11.5-15.3) g/dL Hct (37.0-47.0) % MCV (81-99) fL MCH (28.0-34.0) pg MCHC (30.0-36.0) g/dL RDW (12.1-15.1) % Plt Count (130-400) 10^3/c mm MPV (7.4-10.4) fL Neut % (Auto) % Lymph % (Auto) % [place] % (Auto) % Eos % (Auto) % Baso % (Auto) % Neut # (Auto) (1.8-7.7) 10^3/u L Lymph # (Auto) (0.8-4.8) 10^3/u L [place] # (Auto) (0.2-0.9) 10^3/u L Eos # (Auto) (0.0-0.8) 10^3/u L Baso # (Auto) (0.0-0.1) 10^3/u L Nucleated RBC % (a uto) % Nucleated RBCs # /100WBC PT (12.1-14.9) SECO NDS INR (0.8-1.2) D-Dimer (0-0.59) ug/mIFE U Specimen Type Sample Site ABG pH (7.35-7.45) ABG pCO2 (35-45) mmHg ABG pO2 (80.0-100.0) mmH g ABG HCO3 (22-26) mmol/L ABG Base Excess (-2.0-2.0) mmol/ L Froylan Test Hematocrit (37-47) % O2 Delivery Device FiO2 % Mechanical Systems Engineer ID Sodium 128 L (136-145) mmol/L Potassium 2.7 L* (3.5-5.1) mmol/L Chloride 95 L (98-107) mmol/L Carbon Dioxide 24 (22-29) mmol/L Anion Gap 11.7 (5-19) BUN 13 (8-23) mg/dL Creatinine 0.6 (0.5-0.9) mg/dL GFR Calculation 100.3 (90-130) mL/min Glucose 98 (65-115) mg/dL Calculated Osmolal ity 266 L (285-295) mOsm/k g Lactic Acid 0.8 (0.5-2.2) mmol/L Calcium 9.7 (8.5-10.5) mg/dL Magnesium 2.0 (1.7-2.3) mg/dL Total Bilirubin 0.2 (0.15-1.2) mg/dL AST 12 (0-32) U/L ALT 10 (0-33) U/L Alkaline Phosphata se 75 (35-105) IU/L Ammonia 55 H (11-51) umol/L Creatine Kinase 41 (26-192) U/L Troponin T Baselin e (0-10) ng/L NT-Pro-B Natriuret Pep 10 (0-125) pg/mL Total Protein 6.2 L (6.6-8.7) g/dL Albumin 4.1 (3.5-5.2) g/dL Globulin 2.1 (1.3-4.6) g/dL Lipase 45 (13-60) U/L TSH 0.69 (0.27-4.20) uIU/ mL Free T4 1.61 (0.82-1.77) ng/d L Amorphous Sediment Urine Opiates Scre en (Negative) ng/mL Ur Barbiturates Sc reen (Negative) ng/mL Ur Phencyclidine S crn (Negative) ng/mL Ur Amphetamines Sc reen (Negative) ng/mL U Benzodiazepines Scrn (Negative) ng/mL Urine Cocaine Scre en (Negative) ng/mL U Marijuana (THC) Screen (Negative) ng/mL Ethyl Alcohol < 10 (0-10) mg/dL Serum Ketones Negative (Negative) Influenza Type A A g (Negative) Influenza Type B A g (Negative) 12/05/19 12/05/19 12/05/19 Range/Units 19:36 19:36 21:23 WBC (4.0-10.0) 10^3/ uL RBC (4.1-5.3) 10^6/u L Hgb (11.5-15.3) g/dL Hct (37.0-47.0) % MCV (81-99) fL MCH (28.0-34.0) pg MCHC (30.0-36.0) g/dL RDW (12.1-15.1) % Plt Count (130-400) 10^3/c mm MPV (7.4-10.4) fL Neut % (Auto) % Lymph % (Auto) % [place] % (Auto) % Eos % (Auto) % Baso % (Auto) % Neut # (Auto) (1.8-7.7) 10^3/u L Lymph # (Auto) (0.8-4.8) 10^3/u L [place] # (Auto) (0.2-0.9) 10^3/u L Eos # (Auto) (0.0-0.8) 10^3/u L Baso # (Auto) (0.0-0.1) 10^3/u L Nucleated RBC % (a uto) % Nucleated RBCs # /100WBC PT (12.1-14.9) SECO NDS INR (0.8-1.2) D-Dimer (0-0.59) ug/mIFE U Specimen Type Sample Site ABG pH (7.35-7.45) ABG pCO2 (35-45) mmHg ABG pO2 (80.0-100.0) mmH g ABG HCO3 (22-26) mmol/L ABG Base Excess (-2.0-2.0) mmol/ L Froylan Test Hematocrit (37-47) % O2 Delivery Device FiO2 % Mechanical Systems Engineer ID Sodium (136-145) mmol/L Potassium (3.5-5.1) mmol/L Chloride (98-107) mmol/L Carbon Dioxide (22-29) mmol/L Anion Gap (5-19) BUN (8-23) mg/dL Creatinine (0.5-0.9) mg/dL GFR Calculation (90-130) mL/min Glucose (65-115) mg/dL Calculated Osmolal ity (285-295) mOsm/k g Lactic Acid (0.5-2.2) mmol/L Calcium (8.5-10.5) mg/dL Magnesium (1.7-2.3) mg/dL Total Bilirubin (0.15-1.2) mg/dL AST (0-32) U/L ALT (0-33) U/L Alkaline Phosphata se (35-105) IU/L Ammonia (11-51) umol/L Creatine Kinase (26-192) U/L Troponin T Baselin e 11 H (0-10) ng/L NT-Pro-B Natriuret Pep (0-125) pg/mL Total Protein (6.6-8.7) g/dL Albumin (3.5-5.2) g/dL Globulin (1.3-4.6) g/dL Lipase (13-60) U/L TSH (0.27-4.20) uIU/ mL Free T4 (0.82-1.77) ng/d L Amorphous Sediment Not Reportable Urine Opiates Scre en (Negative) ng/mL Ur Barbiturates Sc reen (Negative) ng/mL Ur Phencyclidine S crn (Negative) ng/mL Ur Amphetamines Sc reen (Negative) ng/mL U Benzodiazepines Scrn (Negative) ng/mL Urine Cocaine Scre en (Negative) ng/mL U Marijuana (THC) Screen (Negative) ng/mL Ethyl Alcohol (0-10) mg/dL Serum Ketones (Negative) Influenza Type A A g Negative (Negative) Influenza Type B A g Negative (Negative) 12/05/19 Range/Units 21:23 WBC (4.0-10.0) 10^3/ uL RBC (4.1-5.3) 10^6/u L Hgb (11.5-15.3) g/dL Hct (37.0-47.0) % MCV (81-99) fL MCH (28.0-34.0) pg MCHC (30.0-36.0) g/dL RDW (12.1-15.1) % Plt Count (130-400) 10^3/c mm MPV (7.4-10.4) fL Neut % (Auto) % Lymph % (Auto) % [place] % (Auto) % Eos % (Auto) % Baso % (Auto) % Neut # (Auto) (1.8-7.7) 10^3/u L Lymph # (Auto) (0.8-4.8) 10^3/u L [place] # (Auto) (0.2-0.9) 10^3/u L Eos # (Auto) (0.0-0.8) 10^3/u L Baso # (Auto) (0.0-0.1) 10^3/u L Nucleated RBC % (a uto) % Nucleated RBCs # /100WBC PT (12.1-14.9) SECO NDS INR (0.8-1.2) D-Dimer (0-0.59) ug/mIFE U Specimen Type Sample Site ABG pH (7.35-7.45) ABG pCO2 (35-45) mmHg ABG pO2 (80.0-100.0) mmH g ABG HCO3 (22-26) mmol/L ABG Base Excess (-2.0-2.0) mmol/ L Froylan Test Hematocrit (37-47) % O2 Delivery Device FiO2 % Mechanical Systems Engineer ID Sodium (136-145) mmol/L Potassium (3.5-5.1) mmol/L Chloride (98-107) mmol/L Carbon Dioxide (22-29) mmol/L Anion Gap (5-19) BUN (8-23) mg/dL Creatinine (0.5-0.9) mg/dL GFR Calculation (90-130) mL/min Glucose (65-115) mg/dL Calculated Osmolal ity (285-295) mOsm/k g Lactic Acid (0.5-2.2) mmol/L Calcium (8.5-10.5) mg/dL Magnesium (1.7-2.3) mg/dL Total Bilirubin (0.15-1.2) mg/dL AST (0-32) U/L ALT (0-33) U/L Alkaline Phosphata se (35-105) IU/L Ammonia (11-51) umol/L Creatine Kinase (26-192) U/L Troponin T Baselin e (0-10) ng/L NT-Pro-B Natriuret Pep (0-125) pg/mL Total Protein (6.6-8.7) g/dL Albumin (3.5-5.2) g/dL Globulin (1.3-4.6) g/dL Lipase (13-60) U/L TSH (0.27-4.20) uIU/ mL Free T4 (0.82-1.77) ng/d L Amorphous Sediment Urine Opiates Scre en Negative (Negative) ng/mL Ur Barbiturates Sc reen Negative (Negative) ng/mL Ur Phencyclidine S crn Negative (Negative) ng/mL Ur Amphetamines Sc reen Negative (Negative) ng/mL U Benzodiazepines Scrn Negative (Negative) ng/mL Urine Cocaine Scre en Negative (Negative) ng/mL U Marijuana (THC) Screen Negative (Negative) ng/mL Ethyl Alcohol (0-10) mg/dL Serum Ketones (Negative) Influenza Type A A g (Negative) Influenza Type B A g (Negative) EKG Data^: EKG 1: Computer generated interpretation: Chest X-Ray 12/05/19 18:36 IMPRESSION: No acute findings. Head CT 12/05/19 18:36
--- NOTE | 2019-12-05 18:36 | XRR_ITS ---
PROCEDURE INFORMATION: Exam: XR Chest, 1 View Exam date and time: 12/05/2019 7:04 PM Age: 64 years old Clinical indication: Other: AMS, low potassium; Additional info: Altered mental status TECHNIQUE: Imaging protocol: XR of the chest Views: 1 view. COMPARISON: CR (CHEST, ) 11/15/2019 12:15 PM FINDINGS: Lungs: Unremarkable. No consolidation. Pleural space: Unremarkable. No pleural effusion. No pneumothorax. Heart/Mediastinum: Unremarkable. No cardiomegaly. Vasculature: The aorta is slightly tortuous. Bones/joints: There is a thoracic dextroscoliosis. XR/XR chest 1V portable [id number] IMPRESSION: No acute findings.
--- NOTE | 2019-12-05 18:37 | ECG_ITS ---
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
[2019-12-05 18:50] LABS: ABG PCO2 35.6 mmHg (35-45); ABG PH Result 7.42 (7.35-7.45); Arterial Blood Gas Hematocrit 38.8 % (37-47); Blood Gas Allen Test Pos; Blood Gas Operator Identificat CAK; Blood Gas Sample Site Radial, left; Blood Gas Sample Type Arterial; HCO3 ABG 23.1 mmol/L (22-26); Oxygen Device ROOM AIR
[2019-12-05 19:48] LABS: Basophils % 0.6 %; Eosinophils # 0.1 10^3/uL (0.0-0.8); Eosinophils % 1.2 %; Hematocrit 36.6 % (37.0-47.0); Hemoglobin 12.2 g/dL (11.5-15.3); Lymphocytes # 0.9 10^3/uL (0.8-4.8); Lymphocytes % 17.5 %; Mean Corpuscular HGB Conc 33.3 g/dL (30.0-36.0); Mean Corpuscular Hemoglobin 29.6 pg (28.0-34.0); Mean Corpuscular Volume 88.8 fL (81-99); Mean Platelet Volume 9.2 fL (7.4-10.4); Monocytes # 0.8 10^3/uL (0.2-0.9); Monocytes % 16.5 %; Neutrophils # 3.21 10^3/uL (1.8-7.7); Neutrophils % 63.2 %; Nucleated Red Blood Cells % 0 %; Platelet Count 297 10^3/cmm (130-400); Red Blood Count 4.12 10^6/uL (4.1-5.3); Red Cell Distribution Width 12.4 % (12.1-15.1); White Blood Count 5.1 10^3/uL (4.0-10.0)
[2019-12-05 19:54] LABS: Ketone (Acetest) Serum Negative (Negative)
[2019-12-05 20:03] LABS: Lactic Sepsis W/Reflex 0.8 mmol/L (0.5-2.2)
[2019-12-05 20:08] LABS: Ammonia 55 umol/L (11-51)
[2019-12-05 20:09] LABS: INR 0.96 (0.8-1.2); Troponin(5th) Baseline 11 ng/L (0-10)
[2019-12-05] MEDS: sodium chloride 0.9% 1,000 ML 100 ML IV ×2 (20:11→22:56)
[2019-12-05 20:13] LABS: D Dimer 0.29 ug/mIFEU (0-0.59)
[2019-12-05 20:18] LABS: Alanine Aminotransferase 10 U/L (0-33); Albumin Level 4.1 g/dL (3.5-5.2); Alkaline Phosphatase 75 IU/L (35-105); Anion Gap 11.7 (5-19); Aspartate Amino Transferase 12 U/L (0-32); Blood Urea Nitrogen 13 mg/dL (8-23); Calcium 9.7 mg/dL (8.5-10.5); Carbon Dioxide 24 mmol/L (22-29); Chloride 95 mmol/L (98-107); Creatine Phosphokinase 41 U/L (26-192); Globulin 2.1 g/dL (1.3-4.6); Glomerular Filtration Rate 100.3 mL/min (90-130); Glucose 98 mg/dL (65-115); Lipase 45 U/L (13-60); NT Pro B Type Natriuretic Pept 10 pg/mL (0-125); Osmolality Calculated 266 mOsm/kg (285-295); Sodium 128 mmol/L (136-145); Thyroid Stimulating Hormone 0.69 uIU/mL (0.27-4.20); Total Bilirubin 0.2 mg/dL (0.15-1.2); Total Protein 6.2 g/dL (6.6-8.7)
[2019-12-05 20:19] LABS: Alcohol Level < 10 mg/dL (0-10)
[2019-12-05 20:20] LABS: Potassium 2.7 mmol/L (3.5-5.1)
[2019-12-05 20:21] LABS: Influenza A by IFA Negative (Negative); Influenza B by IFA Negative (Negative)
--- NOTE | 2019-12-05 20:21 | PC.NURSE ---
lab called critical potassium 2.7. Notified Dr. Jenkins. No orders given at this time
--- NOTE | 2019-12-05 20:33 | PC.NURSE ---
EKG done at 2030 and shown to ER doctor
[2019-12-05] MEDS: potassium chloride ER 10 mEq Tablet 40 MEQ PO (20:37)
--- NOTE | 2019-12-05 20:37 | ECG_ITS ---
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
[2019-12-05] MEDS: potassium chloride premix 100 ML 50 MEQ IV (20:40)
--- NOTE | 2019-12-05 20:51 | PC.NURSE ---
Pt given food and water. Pt denies the need for anything further at this time.
[2019-12-05 21:54] LABS: Free T4 Free Thyroxine 1.61 ng/dL (0.82-1.77)
--- NOTE | 2019-12-05 22:22 | PM.HP ---
Providers/Chief Complaint Primary Care Provider: Jamaal Blake MD Chief Complaint: LEG PAIN/ AMS/ POSSIBLE LOW K History of Present Illness 64-year-old female with a past medical history significant for hypertension, dyslipidemia, COPD, restless leg syndrome, vitamin-D deficiency, depression, anxiety, dementia with multiple admission to hospital for altered mental status who now presented to hospital with abnormal labs. Patient appearantly had outpatient labs performed with showed hypokalemia 2 weeks prior. Unclear as what prompted labs to be drawn and delay in presenting to hospital. While in ER patients was noted to have altered mental status with delayed response and minimal insight in to her condition. Initial work up showed a WBC of 5.1, hemoglobin 12.2, hematocrit 36.6 and a platelet count of 297. sodium of 128, potassium 2.7, chloride 95, bicarb 24, BUN 13 and creatinine is 0.6. Ammonia level was slightly elevated at 55. creatinine kinase of 41. Troponin T of 11. proBNP of 10. TSH of 0.69. Arterial blood gases showed a pH of 7.42, pCO2 of 35.6 and a bicarb 23.1 on room air. Urinalysis was pending, urinary tox screen was negative. Initial vital signs showed a blood pressure 108/64, respiratory rate of 16, heart rate of 85 and a temperature of 98.1?. Imaging studies included a chest x-ray which did not show any acute findings as well as a head CT without contrast which showed chronic microvascular disease with old lacunar infarcts. In emergency room patient was started on normal saline at 100 cc/hour and given 40 mEq oral of potassium chloride as well as IV. At the time of my evaluation patient was alert and oriented x3. She was somewhat slow to respond however did recall the reason for her hospitalization as well as previous hospitalizations. Stated she lives at home by herself however her daughter lives nearby who assist with her care. Attempts to contact daughter in emergency room were unsuccessful. She noted cramps in her lower extremities however denied any recent fever, chills, nausea or vomiting. Also denied any chest pain, dyspnea, lightheadednes, dizziness or falls. Patient was admitted to the hospital for observation. Review of Systems General: Reports: 10 or more systems reviewed and unremarkable except in HPI and below Medications/Allergies Home Medications Medication Instructions Recorded Confirmed Last Taken Type albuterol sulfate [Ventolin HFA] 2 inh INHALATION Q6H PRN #8.5 gm 07/15/19 11/15/19 Unknown Rx famotidine 20 mg PO DAILY 30 Days #30 tab 07/15/19 11/15/19 11/15/19 Rx Anoro Ellipta 1 inh INHALATION DAILY 09/22/19 11/15/19 11/15/19 History aspirin 81 mg PO DAILY #30 tab 09/23/19 11/15/19 11/15/19 Rx donepezil 10 mg tablet 10 mg PO BEDTIME 30 Days #30 tab 10/29/19 11/15/19 11/14/19 Rx escitalopram oxalate 20 mg tablet 20 mg PO DAILY 30 Days #30 tab 10/29/19 11/15/19 11/15/19 Rx memantine 10 mg tablet 10 mg PO DAILY 30 Days #30 tab 10/29/19 11/15/19 11/15/19 Rx risperidone 2 mg tablet 2 mg PO BID #60 tab 10/29/19 11/15/19 11/15/19 Rx albuterol sulfate 2.5 mg INHALATION Q6H PRN 11/15/19 11/15/19 11/15/19 History losartan 25 mg PO BID 11/15/19 11/15/19 11/15/19 History atorvastatin 10 mg PO DAILY #0 tab 11/18/19 11/15/19 11/14/19 Rx bupropion HCl 150 mg 24 hr tablet, 150 mg PO QAM #30 tab 11/27/19 11/27/19 Unknown Rx extended release trazodone 100 mg tablet 100 mg PO .HS #30 tab 11/27/19 11/27/19 Unknown Rx Allergies Allergy/AdvReac Type Severity Reaction Status Date / Time doxycycline Allergy Unknown Verified 09/22/19 08:32 Penicillins Allergy unknown Verified 09/22/19 08:32 PFSH Acute PFSH: Medical History COPD (chronic obstructive pulmonary disease) diagnosis as per patient, remote smoker, PFTs without demonstrated obstructive component 02/24 Dementia Dyslipidemia History of pulmonary function tests (~02/2019) mild restrictive ventilatory defect, improved with bronchodilator, elevated RV/TLC, nl DLCO Hypertension Controlled Major depressive disorder, recurrent, in partial remission Obesity (BMI 30.0-34.9) Post-traumatic stress disorder, chronic Restless leg syndrome Vitamin D deficiency Surgical History H/O section History of carpal tunnel release History of hysterectomy Family History Other Psychiatric illness Social History Smoking and tobacco status: former smoker Quit status (tobacco): has quit using tobacco Former quit date comment: 20 ya Alcohol intake: never Lives independently: Yes Household members: family and other Details: Daughter lives 7 stories above her Current occupational status: disabled Female Reproductive History: Para: 4 Vitals/I&O/Wt Last Vital Signs Temp 98.1 F 12/05/19 18:14 Pulse 67 12/05/19 22:10 Resp 16 12/05/19 22:10 BP 108/64 12/05/19 22:10 Pulse Ox 94 12/05/19 22:10 Weight last 48 hrs Weight 93.44 kg Physical Exam Narrative: EXAM NARRATIVE: General : Chronically ill appearing elderly in no apperrant distress HEENT : Grossly unremakable CVS: Normal sinus rhythum Chest: Non-labored respiration Abdomen : Soft non-tender, non distended Ext: No edema Data : 12/05/19 19:36 12/05/19 19:36 Micro: Microbiology 12/05/19 19:36 Blood Culture - Preliminary Blood SPECIMEN COLLECTED 12/05/19 19:36 Blood Culture - Preliminary Blood SPECIMEN COLLECTED A&P Assessment and plan (1) Acute alteration in mental status: Status: Acute (2) Acute hyponatremia: Status: Acute (3) Acute hypokalemia: Status: Acute (4) Hypertension: Status: Chronic Qualifiers: Hypertension type: essential hypertension Qualified Code(s): I10 - Essential (primary) hypertension (5) Dyslipidemia: Status: Chronic (6) Dementia: Status: Chronic Qualifiers: Dementia type: unspecified type Dementia behavioral disturbance: without behavioral disturbance Qualified Code(s): F03.90 - Unspecified dementia without behavioral disturbance Acute on chronic encephalopathy / Underlying dementia - Baseline mental status is unclear possible metabolic - Extensive imaging since 07/2019 - CT head w/o contrast x 4 - all negative for acute intracrainial abnormality -09/21/2019 - CTA head/neck - mild stenosis of right carotid siphon. - 10/14/2019 - MRI brain - no acute abnormality, noted to have moderate symmetric atrophy involving temporal lobes and hippocampal formations. - No clear evidence of undelrying acute infectious process - Toxicology - negative - Ammonia is 55 , TSH normal - Urinalysis - pending - Continue donepezil 10 mg PO daily, namenda 10 mg po daily, respiridone 2 mg PO BID Acute on chronic hyponatremia - Euvolemic currenlty - Sodium 128, Serum osm 266 - Check Urine sodium, osmolality - Check Uric acid in am - NS at 100 cc/hr ordered in ER - Repeat BMP in am Hypokalemia - Potassium is 2.7 - KCL 40 meq po x 1 - Repeat BMP in am - Monitor on telemetry Hypertension - Resume Losartan 25 mg PO BID COPD with out exacerbation - DuoNeb Q6hr PRN Dyslipidemia - Lipitor 10 mg PO daily Anxiety/Depression - Meds as noted in #1 - Wellbutrin 150 mg ER daily - Trazadone 100 mg PO qhs - Consider neuro-psych eval GERD - Pepcid 20 mg PO daily DVT ppx - Lovenox 40 mg SQ daily - SCDs at bed rest Attestations Medical Necessity Statement*: Patient is admitted to the hospital with altered mental status, hyponatremia and hypokalemia. Will likely require less than 2 midnight stay in hospital. Will place in observation. Time Spent in Patient Care: Greater than 35 minutes Coding Level of Care Code Acute Business Information Consultant for Jodie Fwpatrice Diagnoses Acute alteration in mental status R41.82 Acute hyponatremia E87.1 Acute hypokalemia E87.6 Hypertension I10 Hypertension type: essential hypertension Dyslipidemia E78.5 Dementia F03.90 Dementia type: unspecified type Dementia behavioral disturbance: without behavioral disturbance
[2019-12-05 22:23] LABS: Amphetamines Screen Urine Negative (Negative); Barbiturates Screen Urine Negative (Negative); Benzodiazepines Screen Urine Negative (Negative); Cocaine Screen Urine Negative (Negative); Opiate Screen Urine Negative (Negative); PCP Screen Urine Negative (Negative); THC Screen Urine Negative (Negative)
[2019-12-05 22:31] LABS: Bilirubin Urine Neg (Negative); Blood Urine Neg (Negative); Glucose Urine UA Norm (Normal); Ketones Urine Negative (Negative); Leukocyte Esterase Urine 1+ (Negative); Nitrate Urine Negative (Negative); Protein Urine Neg (Negative); Specific Gravity, Urine 1.005 (1.005-1.030); Urine Appearance Clear (CLEAR); Urine Color Yellow (Yellow); Urobilinogen Urine 1 mg/dL (Negative); pH Urine 7 (5-7)
[2019-12-05 22:33] LABS: Add Urine Culture? No; Bacteria Urine TRACE /hpf; Hyaline Casts Urine 0-4 /lpf; RBC Urine 0-4 /hpf (0-2)
[2019-12-05] MEDS: pneumococcal (23 valent) SDV 0.5 mL IM (23:08)
--- NOTE | 2019-12-05 23:41 | PC.NURSE ---
Pt admitted to 279-2. Her belongings include phelan tshirt, maroon sweat pants and glasses.
[2019-12-06] VITALS: BP 109/70; BP 114/67; PULSE 59; PULSE 61; RESP 17; RESP 20; TEMP 36.4; TEMP 36.8; O2SAT 95; O2SAT 97
[2019-12-06 01:17] LABS: Troponin 5 6HR 12.98 ng/L (0-10); Troponin 5 6HR Delta 1.98 ng/L (0-12)
[2019-12-06] MEDS: enoxaparin 40 mg/0.4 mL Syringe SUBCUT (01:53)
[2019-12-06 04:00] VITALS: BP 112/77; PULSE 64; RESP 17; TEMP 36.9; O2SAT 96
[2019-12-06 06:16] LABS: Basophils % 0.6 %; Eosinophils # 0.1 10^3/uL (0.0-0.8); Eosinophils % 1.9 %; Hematocrit 34.7 % (37.0-47.0); Hemoglobin 11.5 g/dL (11.5-15.3); Lymphocytes # 1.1 10^3/uL (0.8-4.8); Lymphocytes % 20.4 %; Mean Corpuscular HGB Conc 33.1 g/dL (30.0-36.0); Mean Corpuscular Hemoglobin 29.6 pg (28.0-34.0); Mean Corpuscular Volume 89.2 fL (81-99); Mean Platelet Volume 9.4 fL (7.4-10.4); Monocytes % 18.9 %; Neutrophils # 2.98 10^3/uL (1.8-7.7); Neutrophils % 57.4 %; Nucleated Red Blood Cells % 0 %; Platelet Count 309 10^3/cmm (130-400); Red Blood Count 3.89 10^6/uL (4.1-5.3); Red Cell Distribution Width 12.8 % (12.1-15.1); White Blood Count 5.2 10^3/uL (4.0-10.0)
[2019-12-06 06:42] LABS: Alanine Aminotransferase 10 U/L (0-33); Alkaline Phosphatase 69 IU/L (35-105); Aspartate Amino Transferase 9 U/L (0-32); Blood Urea Nitrogen 13 mg/dL (8-23); Calcium 9.5 mg/dL (8.5-10.5); Carbon Dioxide 24 mmol/L (22-29); Chloride 102 mmol/L (98-107); Glucose 100 mg/dL (65-115); Magnesium 2.2 mg/dL (1.7-2.3); Osmolality Calculated 280 mOsm/kg (285-295); Sodium 135 mmol/L (136-145); Thyroid Stimulating Hormone 1.15 uIU/mL (0.27-4.20); Total Bilirubin 0.2 mg/dL (0.15-1.2); Uric Acid 2.8 mg/dL (2.4-5.7)
[2019-12-06 07:56] VITALS: BP 124/80; PULSE 77; RESP 17; TEMP 36.4; O2SAT 95
[2019-12-06 08:27] LABS: Cortisol Random 11.28 ug/mL (2.47-19.5)
[2019-12-06] MEDS: sodium chloride 0.9% 1,000 ML 100 ML IV (10:04)
[2019-12-06 10:40] LABS: Urine Random Sodium 36 mmol/L
[2019-12-06] MEDS: potassium chloride ER 10 mEq Tablet 40 MEQ PO (10:45)
[2019-12-06 11:54] VITALS: BP 135/87; PULSE 83; RESP 17; TEMP 36.6; O2SAT 97
--- NOTE | 2019-12-06 12:56 | PC.CHAP ---
Pastoral Care Encounter/Spiritual Assessment Type of Contact [] Declined learning and development manager visit [] Patient/Family/Request visit [] Outpatient visit [] Follow-up visit [] Physician referral [] Code/Alert [X] Routine visit [] Staff referral [] Actively dying [] Patient sleeping [] Family support [] [] Out of room [] Palliative care [] [] Receiving care in room [] Pre-surgical visit [] Trauma [] Long length of stay [] ICU visit [] Other: Relational/Emotional Strength [X] Patient feels connected with others/family/visitors/staff [] Distress [] Loneliness/isolation [] Abandonment Spirituality of Patient [] Person of Marleni [] Attends Anabaptist of their Marleni [] Believes in Prayer [] Reads Bible or Anabaptist materials [] There are Spiritual issues to be addressed Computer Forensics Technician Interventions [] Prayer [] Active listening [] Non-anxious presence [] Spiritual/emotional support [] Crisis/trauma care [] Spiritual counseling [] Bereavement support [] Provided bereavement packet [] Provided Bible/devotional materials [] Provided toy/stuffed animal, coloring book to patient or family member [] Provided Communion [] Anointing/Keystone [] Salvation [] Completed spiritual assessment [] Other: Impact on Illness or Injury [] Angry [] Fearful [] Anxious [] Often cries [] Exhaustion [] Unable to work [] Unable to attend restorationist [] Unable to walk/stand [] Unable to read [] Unable to drive [] Unable to eat/drink [] Unable to sleep [] Unable to be with family [] Patient intubated [] Other: Summary: Patient has limited cognition, I believe. She could not carry on a conversation but was pleasant and seemed to enjoy the visit. Her daughter is in the home and cares for her. Pt states that she is being discharged today. Time spent with patient: <5 mins
--- NOTE | 2019-12-06 14:36 | P.DS_ITS ---
Discharge Providers Date of Admission: 12/05/19 21:51 Date of Discharge: December 06, 2019 Attending Provider at Admission: Macy Anthony Attending Provider at Discharge: Steve Toro MD Primary Care Provider: Jamaal Blake MD Diagnoses at Discharge Discharge Diagnosis (1) Acute alteration in mental status: Status: Acute Permanent problem details: Resolved currently. (2) Acute hyponatremia: Status: Acute Permanent problem details: Resolved (3) Acute hypokalemia: Status: Acute Permanent problem details: Improved (4) Hypertension: Status: Chronic Permanent problem details: Controlled Qualifiers: Hypertension type: essential hypertension Qualified Code(s): I10 - Essential (primary) hypertension (5) Dyslipidemia: Status: Chronic (6) Dementia: Status: Chronic Qualifiers: Dementia type: unspecified type Dementia behavioral disturbance: without behavioral disturbance Qualified Code(s): F03.90 - Unspecified dementia without behavioral disturbance Reason for Visit Reason for Visit: LEG PAIN/ AMS/ POSSIBLE LOW K Hospital Course Hospital Course: Nel is a 64-year-old white female with underlying dementia who has had multiple previous hospitalizations for altered mental status presents with the same. Hypokalemia was noted. Hyponatremia was noted as well. It was hard to determine if patient was compliant with medication but multiple medicines were on her list which she was not discharged on recently on November 17, which she had taken in the past. On admission she was hyponatremic and hypokalemic. She was treated with normal saline as she appeared dehydrated. The following day hypokalemia was improved, and continued to be supplemented. Hyponatremia was significantly better with a sodium of 135. She wished to go home, and was alert and oriented. I reviewed her home medication list, and try to simplify it to reduce risk for recurrent hyponatremia and hypokalemia. However, home health and home physical therapy will be needed to make sure patient is compliant with medication as well as to allow for muscle strengthening. I attempted to call family several times with no answer and have left this to the care of discharge planning prior to any discharge. She is on multiple antidepressant medication which I tried to simplify to reduce risk of serotonin syndrome. I have discontinued her chlorthalidone which she was apparently was taking again which could contribute significantly to hyponatremia and hypokalemia. I have asked that she see her primary care provider in 2 to 3 days with a BMP. I have reduced her risperidone to 1 mg twice daily as well. She refuses any placement in any facility. She reports she has support from her daughter, who lives in an apartment by her. Other medication was reduced and/or stopped to try to simplify her regimen. CT head was performed during this hospital stay as well, with no changes. Physical Exam Narrative: EXAM NARRATIVE: General exam no apparent distress Cardiovascular regular in rhythm without murmur Lungs clear Abdomen is soft with positive bowel sounds Extremities no cyanosis clubbing or edema. Discharge Data Data Completed and Pending: Completed Studies During Hospitalization Category Date Time Status CT head wo con* [id number] Stat Cat Scan 12/05/19 18:36 Completed XR chest 1V buck ble [id number] Stat Exams 12/05/19 18:36 Completed Pending at discharge Category Date Time Status Blood Culture Sta t Lab 12/05/19 19:36 Results Osmolality Urine Routine Lab 12/05/19 22:56 Received Urine Culture Sta t Lab 12/05/19 21:23 Received Labs from last 24 hours 12/06/19 12/06/19 12/06/19 09:57 09:57 05:52 WBC RBC Hgb Hct MCV MCH MCHC RDW Plt Count MPV Neut % (Auto) Lymph % (Auto) Lanier % (Auto) Eos % (Auto) Baso % (Auto) Neut # (Auto) Lymph # (Auto) Lanier # (Auto) Eos # (Auto) Baso # (Auto) Nucleated RBC % (a uto) Nucleated RBCs # PT INR D-Dimer Specimen Type Sample Site ABG pH ABG pCO2 ABG pO2 ABG HCO3 ABG Base Excess Froylan Test Hematocrit O2 Delivery Device FiO2 [employer] Teacher ID Sodium Potassium Chloride Carbon Dioxide Anion Gap BUN Creatinine GFR Calculation Glucose Calculated Osmolal ity Lactic Acid Uric Acid Calcium Magnesium Total Bilirubin AST ALT Alkaline Phosphata se Ammonia Creatine Kinase Troponin T Baselin e Troponin T 120 Min [place] & [place] Delta Troponin T Troponin T Hi Sens 6Hr Troponin T Hi Sens 6Hr Delta NT-Pro-B Natriuret Pep Total Protein Albumin Globulin Lipase TSH Free T4 Random Cortisol 11.28 Urine Color Urine Appearance Urine pH Ur Specific Gravit y Urine Protein Urine Glucose (UA) Urine Ketones Urine Blood Urine Nitrate Urine Bilirubin Urine Urobilinogen Ur Leukocyte Chelsey ase Urine RBC Urine WBC Ur Squamous Epith Cells Amorphous Sediment Urine Bacteria Hyaline Casts Urine Osmolality Pending Ur Random Sodium 36 Urine Opiates Scre en Ur Barbiturates Sc reen Ur Phencyclidine S crn Ur Amphetamines Sc reen U Benzodiazepines Scrn Urine Cocaine Scre en U Marijuana (THC) Screen Ethyl Alcohol Serum Ketones Influenza Type A A g Influenza Type B A g 12/06/19 12/06/19 12/06/19 05:52 05:52 05:52 WBC 5.2 RBC 3.89 L Hgb 11.5 Hct 34.7 L MCV 89.2 MCH 29.6 MCHC 33.1 RDW 12.8 Plt Count 309 MPV 9.4 Neut % (Auto) 57.4 Lymph % (Auto) 20.4 Lanier % (Auto) 18.9 Eos % (Auto) 1.9 Baso % (Auto) 0.6 Neut # (Auto) 2.98 Lymph # (Auto) 1.1 Lanier # (Auto) 1.0 H Eos # (Auto) 0.1 Baso # (Auto) 0.0 Nucleated RBC % (a uto) 0 Nucleated RBCs # 0.0 PT INR D-Dimer Specimen Type Sample Site ABG pH ABG pCO2 ABG pO2 ABG HCO3 ABG Base Excess Froylan Test Hematocrit O2 Delivery Device FiO2 Religious Education Teacher ID Sodium 135 L Potassium 3.0 L Chloride 102 Carbon Dioxide 24 Anion Gap 12.0 BUN 13 Creatinine 0.8 GFR Calculation 72.0 L Glucose 100 Calculated Osmolal ity 280 L Lactic Acid Uric Acid Cancelled 2.8 Calcium 9.5 Magnesium 2.2 Total Bilirubin 0.2 AST 9 ALT 10 Alkaline Phosphata se 69 Ammonia Creatine Kinase Troponin T Baselin e Troponin T 120 Min [place] & [place] Delta Troponin T Troponin T Hi Sens 6Hr Troponin T Hi Sens 6Hr Delta NT-Pro-B Natriuret Pep Total Protein 6.0 L Albumin 4.0 Globulin 2.0 Lipase TSH 1.15 Free T4 Random Cortisol Urine Color Urine Appearance Urine pH Ur Specific Gravit y Urine Protein Urine Glucose (UA) Urine Ketones Urine Blood Urine Nitrate Urine Bilirubin Urine Urobilinogen Ur Leukocyte Chelsey ase Urine RBC Urine WBC Ur Squamous Epith Cells Amorphous Sediment Urine Bacteria Hyaline Casts Urine Osmolality Ur Random Sodium Urine Opiates Scre en Ur Barbiturates Sc reen Ur Phencyclidine S crn Ur Amphetamines Sc reen U Benzodiazepines Scrn Urine Cocaine Scre en U Marijuana (THC) Screen Ethyl Alcohol Serum Ketones Influenza Type A A g Influenza Type B A g 12/06/19 12/05/19 12/05/19 00:49 21:46 21:23 WBC RBC Hgb Hct MCV MCH MCHC RDW Plt Count MPV Neut % (Auto) Lymph % (Auto) Lanier % (Auto) Eos % (Auto) Baso % (Auto) Neut # (Auto) Lymph # (Auto) Lanier # (Auto) Eos # (Auto) Baso # (Auto) Nucleated RBC % (a uto) Nucleated RBCs # PT INR D-Dimer Specimen Type Sample Site ABG pH ABG pCO2 ABG pO2 ABG HCO3 ABG Base Excess Froylan Test Hematocrit O2 Delivery Device FiO2 [employer] Education Teacher ID Sodium Potassium Chloride Carbon Dioxide Anion Gap BUN Creatinine GFR Calculation Glucose Calculated Osmolal ity Lactic Acid Uric Acid Calcium Magnesium Total Bilirubin AST ALT Alkaline Phosphata se Ammonia Creatine Kinase Troponin T Baselin e Troponin T 120 Min [place] & [place] 10.80 H Delta Troponin T -0.20 L Troponin T Hi Sens 6Hr 12.98 H Troponin T Hi Sens 6Hr Delta 1.98 NT-Pro-B Natriuret Pep Total Protein Albumin Globulin Lipase TSH Free T4 Random Cortisol Urine Color Urine Appearance Urine pH Ur Specific Gravit y Urine Protein Urine Glucose (UA) Urine Ketones Urine Blood Urine Nitrate Urine Bilirubin Urine Urobilinogen Ur Leukocyte Chelsey ase Urine RBC Urine WBC Ur Squamous Epith Cells Amorphous Sediment Urine Bacteria Hyaline Casts Urine Osmolality Ur Random Sodium Urine Opiates Scre en Negative Ur Barbiturates Sc reen Negative Ur Phencyclidine S crn Negative Ur Amphetamines Sc reen Negative U Benzodiazepines Scrn Negative Urine Cocaine Scre en Negative U Marijuana (THC) Screen Negative Ethyl Alcohol Serum Ketones Influenza Type A A g Influenza Type B A g 12/05/19 12/05/19 12/05/19 21:23 19:36 19:36 WBC RBC Hgb Hct MCV MCH MCHC RDW Plt Count MPV Neut % (Auto) Lymph % (Auto) Lanier % (Auto) Eos % (Auto) Baso % (Auto) Neut # (Auto) Lymph # (Auto) [place]ier # (Auto) Eos # (Auto) Baso # (Auto) Nucleated RBC % (a uto) Nucleated RBCs # PT INR D-Dimer Specimen Type Sample Site ABG pH ABG pCO2 ABG pO2 ABG HCO3 ABG Base Excess Froylan Test Hematocrit O2 Delivery Device FiO2 [employer] Teacher ID Sodium Potassium Chloride Carbon Dioxide Anion Gap BUN Creatinine GFR Calculation Glucose Calculated Osmolal ity Lactic Acid Uric Acid Calcium Magnesium Total Bilirubin AST ALT Alkaline Phosphata se Ammonia Creatine Kinase Troponin T Baselin e 11 H Troponin T 120 Min [place] Delta Troponin T Troponin T Hi Sens 6Hr Troponin T Hi Sens 6Hr Delta NT-Pro-B Natriuret Pep Total Protein Albumin Globulin Lipase TSH Free T4 Random Cortisol Urine Color Yellow Urine Appearance Clear Urine pH 7 Ur Specific Gravit y 1.005 Urine Protein Neg Urine Glucose (UA) Norm Urine Ketones Negative Urine Blood Neg Urine Nitrate Negative Urine Bilirubin Neg Urine Urobilinogen 1 H Ur Leukocyte Chelsey ase 1+ H Urine RBC 0-4 H Urine WBC 10-15 H Ur Squamous Epith Cells 5-10 H Amorphous Sediment Not Reportable Urine Bacteria Trace Hyaline Casts 0-4 H Urine Osmolality Ur Random Sodium Urine Opiates Scre en Ur Barbiturates Sc reen Ur Phencyclidine S crn Ur Amphetamines Sc reen U Benzodiazepines Scrn Urine Cocaine Scre en U Marijuana (THC) Screen Ethyl Alcohol Serum Ketones Influenza Type A A g Negative Influenza Type B A g Negative 12/05/19 12/05/19 12/05/19 19:36 19:36 19:36 WBC RBC Hgb Hct MCV MCH MCHC RDW Plt Count MPV Neut % (Auto) Lymph % (Auto) Lanier % (Auto) Eos % (Auto) Baso % (Auto) Neut # (Auto) Lymph # (Auto) Lanier # (Auto) Eos # (Auto) Baso # (Auto) Nucleated RBC % (a uto) Nucleated RBCs # PT INR D-Dimer Specimen Type Sample Site ABG pH ABG pCO2 ABG pO2 ABG HCO3 ABG Base Excess Froylan Test Hematocrit O2 Delivery Device FiO2 Religious Education Teacher ID Sodium 128 L Potassium 2.7 L* Chloride 95 L Carbon Dioxide 24 Anion Gap 11.7 BUN 13 Creatinine 0.6 GFR Calculation 100.3 Glucose 98 Calculated Osmolal ity 266 L Lactic Acid 0.8 Uric Acid Calcium 9.7 Magnesium 2.0 Total Bilirubin 0.2 AST 12 ALT 10 Alkaline Phosphata se 75 Ammonia 55 H Creatine Kinase 41 Troponin T Baselin e Troponin T 120 Min [place] Delta Troponin T Troponin T Hi Sens 6Hr Troponin T Hi Sens 6Hr Delta NT-Pro-B Natriuret Pep 10 Total Protein 6.2 L Albumin 4.1 Globulin 2.1 Lipase 45 TSH 0.69 Free T4 1.61 Random Cortisol Urine Color Urine Appearance Urine pH Ur Specific Gravit y Urine Protein Urine Glucose (UA) Urine Ketones Urine Blood Urine Nitrate Urine Bilirubin Urine Urobilinogen Ur Leukocyte Chelsey ase Urine RBC Urine WBC Ur Squamous Epith Cells Amorphous Sediment Urine Bacteria Hyaline Casts Urine Osmolality Ur Random Sodium Urine Opiates Scre en Ur Barbiturates Sc reen Ur Phencyclidine S crn Ur Amphetamines Sc reen U Benzodiazepines Scrn Urine Cocaine Scre en U Marijuana (THC) Screen Ethyl Alcohol < 10 Serum Ketones Negative Influenza Type A A g Influenza Type B A g 12/05/19 12/05/19 12/05/19 19:36 19:36 18:39 WBC 5.1 RBC 4.12 Hgb 12.2 Hct 36.6 L MCV 88.8 MCH 29.6 MCHC 33.3 RDW 12.4 Plt Count 297 MPV 9.2 Neut % (Auto) 63.2 Lymph % (Auto) 17.5 Lanier % (Auto) 16.5 Eos % (Auto) 1.2 Baso % (Auto) 0.6 Neut # (Auto) 3.21 Lymph # (Auto) 0.9 Lanier # (Auto) 0.8 Eos # (Auto) 0.1 Baso # (Auto) 0.0 Nucleated RBC % (a uto) 0 Nucleated RBCs # 0.0 PT 13.10 INR 0.96 D-Dimer 0.29 Specimen Type Arterial Sample Site Radial, left ABG pH 7.42 ABG pCO2 35.6 ABG pO2 79.0 L ABG HCO3 23.1 ABG Base Excess -1.0 Froylan Test Pos Hematocrit 38.8 O2 Delivery Device Room air FiO2 21.0 Religious Education Teacher ID Cak Sodium Potassium Chloride Carbon Dioxide Anion Gap BUN Creatinine GFR Calculation Glucose Calculated Osmolal ity Lactic Acid Uric Acid Calcium Magnesium Total Bilirubin AST ALT Alkaline Phosphata se Ammonia Creatine Kinase Troponin T Baselin e Troponin T 120 Min [place] Delta Troponin T Troponin T Hi Sens 6Hr Troponin T Hi Sens 6Hr Delta NT-Pro-B Natriuret Pep Total Protein Albumin Globulin Lipase TSH Free T4 Random Cortisol Urine Color Urine Appearance Urine pH Ur Specific Gravit y Urine Protein Urine Glucose (UA) Urine Ketones Urine Blood Urine Nitrate Urine Bilirubin Urine Urobilinogen Ur Leukocyte Chelsey ase Urine RBC Urine WBC Ur Squamous Epith Cells Amorphous Sediment Urine Bacteria Hyaline Casts Urine Osmolality Ur Random Sodium Urine Opiates Scre en Ur Barbiturates Sc reen Ur Phencyclidine S crn Ur Amphetamines Sc reen U Benzodiazepines Scrn Urine Cocaine Scre en U Marijuana (THC) Screen Ethyl Alcohol Serum Ketones Influenza Type A A g Influenza Type B A g Vitals: Last Vital Signs Temp 97.9 F 12/06/19 11:54 Pulse 83 12/06/19 11:54 Resp 17 12/06/19 11:54 BP 135/87 12/06/19 11:54 Pulse Ox 97 12/06/19 11:54 Discharge Plan Discharge Patient Disposition: Home Health Service Condition: Stable Prescriptions: New risperidone 1 mg tablet 1 mg PO BID Qty: 60 RF: 0 Continued memantine [Namenda] 10 mg tablet 10 mg PO DAILY 30 Days Qty: 30 RF: 2 donepezil [Aricept] 10 mg tablet 10 mg PO BEDTIME 30 Days Qty: 30 RF: 2 bupropion HCl [Wellbutrin XL] 150 mg tablet extended release 24 hr 150 mg PO QAM Qty: 30 RF: 1 famotidine 20 mg Tablet 20 mg PO DAILY 30 Days Qty: 30 RF: 0 albuterol sulfate [Ventolin HFA] 90 mcg/actuation HFA aerosol inhaler 2 inh INHALATION Q6H PRN (Reason: shortness of breath or wheezing) Qty: 8.5 RF: 0 Anoro Ellipta 62.5-25 mcg/actuation blister with device 1 inh INHALATION DAILY RF: 0 aspirin 81 mg Tablet,Delayed Release (Dr/Ec) 81 mg PO DAILY Qty: 30 RF: 0 amlodipine 5 mg tablet 2.5 mg PO DAILY RF: 0 montelukast 10 mg tablet 10 mg PO DAILY RF: 0 loratadine 10 mg tablet 10 mg PO DAILY RF: 0 cholecalciferol (vitamin D3) 1,250 mcg (50,000 unit) capsule 50,000 unit PO Q7D RF: 0 albuterol sulfate 2.5 mg /3 mL (0.083 %) solution for nebulization 2.5 mg inhalation Q6H PRN (Reason: Shortness Of Breath) RF: 0 losartan 25 mg tablet 25 mg PO DAILY RF: 0 atorvastatin 40 mg tablet 10 mg PO DAILY Qty: 0 RF: 0 Changed spironolactone 25 mg tablet 25 mg PO DAILY Qty: 0 RF: 0 ropinirole 0.5 mg tablet 0.5 mg PO BEDTIME Qty: 0 RF: 0 Discontinued risperidone 2 mg tablet 2 mg PO BID Qty: 60 RF: 2 escitalopram oxalate [Lexapro] 20 mg tablet 20 mg PO DAILY 30 Days Qty: 30 RF: 2 chlorthalidone 25 mg tablet 25 mg PO QAM RF: 0 Klor-Con M20 20 mEq tablet,ER particles/crystals See Rx Instructions .ROUTE .COMPLEX RF: 0 trazodone 100 mg tablet 100 mg PO BEDTIME RF: 0 Discharge Orders: Discharge Order (Routine); Ordered 12/06/19 Ordered By: Steve Toro Referrals: Jamaal Blake MD [Primary Care Provider] - 1-3 days (follow up Sunday with visit and BMP) Discharge Diet: Cardiac Discharge Activity: Increase activity as tolerated Activity Restrictions/Additional Instructions: Take all medicine as prescribed Home health on discharge Discharge Attestations Time Spent in Discharge Care*: greater than 30 min Status at Discharge: Cognitive status at discharge: cognitively intact , Behavioral status at discharge: cooperative , Quality Metrics Clinical Quality Measures During this hospital stay, did patient experience: None Coding Level of Care Code Acute Roller Staker for Jodie Chance Diagnoses Acute alteration in mental status R41.82 Acute hyponatremia E87.1 Acute hypokalemia E87.6 Hypertension I10 Hypertension type: essential hypertension Dyslipidemia E78.5 Dementia F03.90 Dementia type: unspecified type Dementia behavioral disturbance: without behavioral disturbance
[2019-12-06 15:26] VITALS: BP 118/72; PULSE 64; RESP 18; TEMP 36.7; O2SAT 94
[2019-12-06 16:35] VITALS: BP 118/72; PULSE 64; RESP 18; TEMP 36.7; O2SAT 94
[2019-12-08 15:53] LABS: Osmolality Urine 349 mOsm/kg (50-1200)
--- NOTE | 2019-12-08 16:59 | PC.RESP ---
Pulmonary Rehab information sent to patient.
== END 2019-12-06 16:36 | disposition home health service (06) ==
LOC: ER 21:54 → MEDSURG 22:02
PROVIDERS: Emergency Medicine; Admitting Provider Hospitalist; PCP Family Medicine; Visit Provider Internal Medicine
DX: R41.82 Altered mental status, unspecified (principal); E87.1 Hypo-osmolality and hyponatremia; E87.6 Hypokalemia; I10 Essential (primary) hypertension; E78.5 Hyperlipidemia, unspecified; F03.90 Unspecified dementia, unspecified severity, without behavioral disturbance, psychotic disturbance, mood disturbance, and anxiety; J44.9 Chronic obstructive pulmonary disease, unspecified; E55.9 Vitamin D deficiency, unspecified; F32.9 Major depressive disorder, single episode, unspecified; F41.9 Anxiety disorder, unspecified; E66.9 Obesity, unspecified; Z68.37 Body mass index [BMI] 37.0-37.9, adult; Z87.891 Personal history of nicotine dependence; Z79.899 Other long term (current) drug therapy
CPT/HCPCS: 12345; 36415; 36600; 70450; 71045; 80053; 80306; 80307; 81001; 82009; 82140; 82533; 82550; 82803; 83605; 83690; 83735; 83880; 83935; 84300; 84439; 84443; 84484; 84550; 85025; 85378; 85610; 87040; 87086; 87804; 90471; 90732; 93005; 96360; 96361; 97110; 97161; 99284; 99285; G0378; J1650; J3480; J7030

== ENCOUNTER → 2020-01-08 08:35 | Outpatient (BNVA) | payer MEDICARE, MEDICAID, SELFPAY | PROVIDERS: PCP Family Medicine; Visit Provider Nurse Practitioner | DX: F33.41 Major depressive disorder, recurrent, in partial remission (principal); F43.12 Post-traumatic stress disorder, chronic | CPT/HCPCS: 99214 ==

== ENCOUNTER → 2020-07-01 08:12 | Outpatient (BNVA) | payer MEDICARE, MEDICAID, SELFPAY | PROVIDERS: PCP Family Medicine; Visit Provider Nurse Practitioner | DX: F33.41 Major depressive disorder, recurrent, in partial remission (principal); F43.12 Post-traumatic stress disorder, chronic | CPT/HCPCS: 99214 ==

== ENCOUNTER → 2020-09-23 07:29 | Outpatient (BNVA) | payer MEDICARE, MEDICAID, SELFPAY | PROVIDERS: PCP Family Medicine; Visit Provider Nurse Practitioner | DX: F43.12 Post-traumatic stress disorder, chronic (principal); F33.41 Major depressive disorder, recurrent, in partial remission | CPT/HCPCS: 99214 ==

== ENCOUNTER 2020-11-19 10:33 | Emergency (ER) | payer MEDICARE, MEDICAID, SELFPAY ==
[2020-11-19 10:46] VITALS: BMI 31.8
[2020-11-19 11:01] VITALS: BP 103/61; PULSE 67; RESP 18; O2SAT 96
--- NOTE | 2020-11-19 11:18 | ECG_ITS ---
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 Measurements Intervals [place] Rate: 50 P: 26 ID: [id number] QRS: 9 QRSD: 145 T: 22 QT: 407 QTc: 374 Interpretive Statements SINUS BRADYCARDIA RIGHT BUNDLE BRANCH BLOCK [120+ ms QRS DURATION, UPRIGHT V1, 40+ ms S IN I/aVL/V4/V5/V6] Compared to ECG 12/05/2019 20:31:31 Sinus rhythm no longer present Electronically Signed On 11-19-2020 18:31:49 CDT by Melquiades Hartman M.D. [id number]
--- NOTE | 2020-11-19 11:24 | W.ED.PSYCH ---
HPI - Psych General: Chief Complaint: Psychiatric Symptoms Stated Complaint: SI Time Seen by Provider: 11/19/20 11:07 History of Present Illness: HPI Narrative: This patient presents to our emergency department because she has been hearing voices over the past 2 to 3 weeks that have been saying negative things to her and urging her to harm herself. She states that she had a appointment with her mental health professional next week but the symptoms had progressed to the point that she could not wait. She states that she did not sleep at all last night due to the symptoms. She states that they are all voices that she sees no visual hallucinations. She is a resident of one of the assisted living facilities. She states that she did try to harm her self approximately 10 years ago with an overdose but is not gone to extreme since that time. She apparently takes all her medications as prescribed. She denies any fevers or chills. She has had some sinus problems for the past few weeks and she thinks that may or may not be contributing to her feelings. She denies cough shortness of breath chest pain etc. She has no local family all her family lives in [place]. complaint: suicidal ideation and feels depressed Duration: getting worse History of same: Yes Associated psychiatric symptoms: auditory hallucinations If self harm: admits thoughts of self harm Review of Systems Const: Denies: fever(s) ENMT: Reports: ear or mastoid pain and post nasal drip; Denies: odynophagia Card: Denies: chest pain or palpitations Resp: Denies: dyspnea, productive cough or non-productive cough : Denies: flank pain, difficulty voiding, dysuria or urinary frequency Musc: Denies: neck pain, back pain, extremity pain or extremity swelling Skin/Breast: Denies: rash Endo: Denies: polyuria, polydipsia or tired all the time [facility] PFSH: Medical History (Updated 11/19/20 @ 14:29 by Dawson Espinoza DO) COPD (chronic obstructive pulmonary disease) diagnosis as per patient, remote smoker, PFTs without demonstrated obstructive component 02/24 Dementia Dyslipidemia History of pulmonary function tests (~02/2019) mild restrictive ventilatory defect, improved with bronchodilator, elevated RV/TLC, nl DLCO Hypertension Controlled Major depressive disorder, recurrent, in partial remission Obesity (BMI 30.0-34.9) Post-traumatic stress disorder, chronic Restless leg syndrome Vitamin D deficiency Surgical History H/O section History of carpal tunnel release History of hysterectomy Family History Other Psychiatric illness Social History Smoking and tobacco status: former smoker Quit status (tobacco): has quit using tobacco Former quit date comment: 20 ya Alcohol intake: never Lives independently: Yes Household members: family and other Details: Daughter lives 7 stories above her Current occupational status: disabled Female Reproductive History: Para: 4 Physical Exam Const: COMMON NORMALS: no acute distress, average body habitus, patient oriented x3, no limitations, healthy appearing, alert and well nourished OTHER: She makes good eye contact. She answers questions in a declarative organized fashion HENMT: COMMON NORMALS: external ears normal, Normal external nose present and Normal nasal mucous membranes and turbinates present FACE & SINUS: normal facial exam NOSE: Normal external nose present and Normal nasal mucous membranes and turbinates present EXTERNAL EAR: Yes external ears normal and Yes mastoids normal TYMPANIC MEMBRANE: other (Left TM is clear and visualized. Right TM is partially occluded by soft wa) MOUTH: Normal oral and palatal mucosa present Eye: COMMON NORMALS: Equal, round and reactive pupils present, EOMs intact bilaterally, conjunctivae normal and no scleral icterus CONJUNCTIVA: Yes conjunctivae normal PUPIL: Yes Equal, round and reactive pupils present Neck/C-Spine: COMMON NORMALS: full ROM, no lymphadenopathy, supple and no JVD Chest: COMMONS NORMALS: normal inspection of the chest Resp: COMMON NORMALS: normal respiratory effort, No retractions, No use of accessory muscles and percussion normal EFFORT & INSPECTION: Yes other (Few scattered rhonchi.) PERCUSSION: percussion normal Cardio: COMMON NORMALS: no JVD, regular rate, regular rhythm and No murmurs present (Cardio) RATE: regular rate RHYTHM: regular rhythm GI: COMMON NORMALS: Normal to inspection, nondistended, normoactive bowel sounds present and Soft to palpation PALPATION: Yes Soft to palpation : COMMON NORMALS: Yes no CVA tenderness BLADDER/KIDNEY EXAM: Yes no CVA tenderness Back/Pelvis: COMMON NORMALS: no CVA tenderness, thoracic and lumbar spine normal to inspection, no thoracic nor lumbar tenderness and thoraco-lumbar ROM normal Extremity: COMMON NORMALS: normal to inspection, full ROM, capillary refill normal and no calf tenderness Neuro: COMMON NORMALS: patient oriented x3, moves all extremities, no focal motor deficits and no sensory deficits noted SENSORIUM/ORIENTATION: Yes alert Psych: COMMON NORMALS: mental status grossly normal, Normal thought process present and cooperative APPEARANCE: Yes grossly normal THOUGHT PROCESS: Normal thought process present, no flight of ideas and normal association THOUGHT CONTENT: Yes Suicidality present, No Homicidality present, Yes Hallucination(s) present, No Compulsions present (thought content) and No Obsession(s) present INSIGHT: Fair insight present (Psych) Course Reevaluation(s): Reevaluation #1: Dr. Aranda interviewed the patient and made treatment recommendations. He did recommend that increase her Risperdal to 2 mg the morning and 2 mg at nighttime and continue that increase until she is seen by her psychiatrist on Sunday. Obviously if she continues to have progressive symptoms she will need to return to the emergency department for reevaluation. She is stable at this time for discharge. Consultations: Consultation #1: I spoke with Dr. Aranda psychiatrist who will do a telepsych evaluation of the patient to determine suitability for disposition. Vital Signs: Vital signs: Vital Signs Pulse Rate 67 11/19/20 11:01 Respiratory Rate 18 11/19/20 11:01 Blood Pressure 103/61 11/19/20 11:01 Pulse Oximetry 96 11/19/20 11:01 MDM - Psych Lab Data: Labs: Lab Results 11/19/20 11/19/20 13:29 13:29 WBC 5.9 10^3/uL 10^3/ uL (4.0-10.0) RBC 4.12 10^6/uL 10^6 /uL (4.1-5.3) Hgb 12.8 g/dL g/dL (11.5-15.3) Hct 39.2 % % (37.0-47.0) MCV 95.1 fl fl (81-99) MCH 31.1 pg pg (28.0-34.0) MCHC 32.7 g/dL g/dL (30.0-36.0) RDW 12.9 % % (12.1-15.1) Plt Count 292 10^3/cmm 10^3 /cmm (130-400) MPV 9.6 fL fL (7.4-10.4) Neut % (Auto) 61.6 % % Lymph % (Auto) 26.9 % % [place] % (Auto) 6.8 % % Eos % (Auto) 3.2 % % Baso % (Auto) 0.8 % % Neut # (Auto) 3.65 10^3/uL 10^3 /uL (1.8-7.7) Lymph # (Auto) 1.6 10^3/uL 10^3/ uL (0.8-4.8) [place] # (Auto) 0.4 10^3/uL 10^3/ uL (0.2-0.9) Eos # (Auto) 0.2 10^3/uL 10^3/ uL (0.0-0.8) Baso # (Auto) 0.1 10^3/uL 10^3/ uL (0.0-0.1) Nucleated RBC % (a uto) 0 % % Nucleated RBCs # 0.0 /100WBC /100W BC Sodium 135 mmol/L L mmol /L (136-145) Potassium 4.2 mmol/L mmol/L (3.5-5.1) Chloride 100 mmol/L mmol/L (98-107) Carbon Dioxide 26 mmol/L mmol/L (22-29) Anion Gap 13.2 (5-19) BUN 7 mg/dL L mg/dL (8-23) Creatinine 0.8 mg/dL mg/dL (0.5-0.9) GFR Calculation 71.8 mL/min L mL/ min (90-130) Glucose 156 mg/dL H mg/dL (65-115) Calculated Osmolal ity 281 mOsm/kg L mOs m/kg (285-295) Calcium 9.9 mg/dL mg/dL (8.5-10.5) Total Bilirubin 0.3 mg/dL mg/dL (0.15-1.2) AST 16 U/L U/L (0-32) ALT 13 U/L U/L (0-33) Alkaline Phosphata se 95 IU/L IU/L (35-105) Total Protein 6.8 g/dL g/dL (6.6-8.7) Albumin 4.1 g/dL g/dL (3.5-5.2) Globulin 2.7 g/dL g/dL (1.3-4.6) Salicylates < 0.3 mg/dL L mg/ dL (3-10) Acetaminophen < 5.0 ug/mL L ug/ mL (10-30) Discharge Plan Discharge Patient Disposition: Home Clinical Impression: Major depressive disorder, recurrent, in partial remission Dementia Qualifiers: Dementia type: unspecified type Dementia behavioral disturbance: without behavioral disturbance Qualified Code(s): F03.90 - Unspecified dementia without behavioral disturbance Condition: Stable Prescriptions: New risperidone 2 mg tablet 2 mg PO BID Qty: 14 RF: 0 No Action bupropion HCl [Wellbutrin XL] 150 mg tablet extended release 24 hr 150 mg PO QAM Qty: 30 RF: 2 donepezil [Aricept] 10 mg tablet 10 mg PO BEDTIME 30 Days Qty: 30 RF: 2 trazodone 100 mg tablet 100 mg PO .HS Qty: 30 RF: 2 ropinirole 0.5 mg tablet 0.5 mg PO BEDTIME Qty: 30 RF: 2 risperidone 1 mg tablet 1 mg PO BID Qty: 60 RF: 2 memantine [Namenda] 10 mg tablet 10 mg PO BID 60 Days Qty: 120 RF: 2 famotidine 20 mg Tablet 20 mg PO DAILY 30 Days Qty: 30 RF: 0 albuterol sulfate [Ventolin HFA] 90 mcg/actuation HFA aerosol inhaler 2 inh INHALATION Q6H PRN (Reason: shortness of breath or wheezing) Qty: 8.5 RF: 0 Anoro Ellipta 62.5-25 mcg/actuation blister with device 1 inh INHALATION DAILY RF: 0 aspirin 81 mg Tablet,Delayed Release (Dr/Ec) 81 mg PO DAILY Qty: 30 RF: 0 montelukast 10 mg tablet 10 mg PO DAILY RF: 0 spironolactone 25 mg tablet 25 mg PO DAILY Qty: 0 RF: 0 albuterol sulfate 2.5 mg /3 mL (0.083 %) solution for nebulization 2.5 mg inhalation Q6H PRN (Reason: Shortness Of Breath) RF: 0 losartan 25 mg tablet 50 mg PO DAILY RF: 0 Discharge Orders: Discharge ED (Routine); Ordered 11/19/20 Ordered By: Dawson Espinoza Referrals: Jamaal Blake MD [Primary Care Provider] - Patient Instructions: Opioid Safety Activity Restrictions/Additional Instructions: Continue all your usual medications with the exception of your risperidone which we are increasing to 2 mg twice daily. Follow-up with your psychiatrist on Sunday as scheduled. If your symptoms persist, worsen or other concerns you are welcome to return to the emergency department at any time. Coding Level of Care Code ED Labor Relations Supervisor for Jodie Fwd Exam Comprehensive
[2020-11-19 13:55] LABS: Basophils # 0.1 10^3/uL (0.0-0.1); Basophils % 0.8 %; Eosinophils # 0.2 10^3/uL (0.0-0.8); Eosinophils % 3.2 %; Hematocrit 39.2 % (37.0-47.0); Hemoglobin 12.8 g/dL (11.5-15.3); Lymphocytes # 1.6 10^3/uL (0.8-4.8); Lymphocytes % 26.9 %; Mean Corpuscular HGB Conc 32.7 g/dL (30.0-36.0); Mean Corpuscular Hemoglobin 31.1 pg (28.0-34.0); Mean Corpuscular Volume 95.1 fl (81-99); Mean Platelet Volume 9.6 fL (7.4-10.4); Monocytes # 0.4 10^3/uL (0.2-0.9); Monocytes % 6.8 %; Neutrophils # 3.65 10^3/uL (1.8-7.7); Neutrophils % 61.6 %; Nucleated Red Blood Cells % 0 %; Platelet Count 292 10^3/cmm (130-400); Red Blood Count 4.12 10^6/uL (4.1-5.3); Red Cell Distribution Width 12.9 % (12.1-15.1); White Blood Count 5.9 10^3/uL (4.0-10.0)
[2020-11-19 14:05] LABS: Alanine Aminotransferase 13 U/L (0-33); Albumin Level 4.1 g/dL (3.5-5.2); Alkaline Phosphatase 95 IU/L (35-105); Anion Gap 13.2 (5-19); Aspartate Amino Transferase 16 U/L (0-32); Blood Urea Nitrogen 7 mg/dL (8-23); Calcium 9.9 mg/dL (8.5-10.5); Carbon Dioxide 26 mmol/L (22-29); Chloride 100 mmol/L (98-107); Globulin 2.7 g/dL (1.3-4.6); Glomerular Filtration Rate 71.8 mL/min (90-130); Glucose 156 mg/dL (65-115); Osmolality Calculated 281 mOsm/kg (285-295); Potassium 4.2 mmol/L (3.5-5.1); Sodium 135 mmol/L (136-145); Total Bilirubin 0.3 mg/dL (0.15-1.2); Total Protein 6.8 g/dL (6.6-8.7)
[2020-11-19 14:10] LABS: Acetaminophen < 5.0 ug/mL (10-30); Salicylate < 0.3 mg/dL (3-10)
--- NOTE | 2020-11-19 14:21 | P.CONIM_ITS ---
Providers/Reason for Consult Consulting Physican/Specialty*: Adán Aranda MD. Psychiatry. Reason for Consult*: Evaluation for safety for discharge. Requesting Physcian: Dawson Espinoza Primary Care Provider: Jamaal Blake MD Psych Consult HPI History of Present Illness Nel Porter is a 65 year old female who presented to the emergency department with the following report: Chief Complaint: Psychiatric Symptoms Stated Complaint: SI Time Seen by Provider: 11/19/20 11:07 History of Present Illness: HPI Narrative: This patient presents to our emergency department because she has been hearing voices over the past 2 to 3 weeks that have been saying negative things to her and urging her to harm herself. She states that she had a appointment with her mental health professional next week but the symptoms had progressed to the point that she could not wait. She states that she did not sleep at all last night due to the symptoms. She states that they are all voices that she sees no visual hallucinations. She is a resident of one of the assisted living facilities. She states that she did try to harm her self approximately 10 years ago with an overdose but is not gone to extreme since that time. She apparently takes all her medications as prescribed. She denies any fevers or chills. She has had some sinus problems for the past few weeks and she thinks that may or may not be contributing to her feelings. She denies cough shortness of breath chest pain etc. She has no local family all her family lives in [place]. complaint: suicidal ideation and feels depressed Duration: getting worse History of same: Yes Associated psychiatric symptoms: auditory hallucinations If self harm: admits thoughts of self harm. Psychiatric consult was requested to determine whether psychiatric admission was necessary. Met with patient and discussed her symptoms as stated above. She reported that the symptoms were present but she had no desire to kill herself or kill anyone else. She reports that the voices are quite annoying at times and she wishes that he does go away. We discussed the oversight that exist at her facility as well. Ultimately we agreed that an increase in her medication will be quite reasonable. We will give her immediate help and her appointment next week could be a point of evaluation whether the Aricept. We discussed the risk- benefit alternatives of doing this and she understood agreed proceed as documented in this note. She does report a long history of mental health challenges that worsened in her later adulthood. PFSH NPU PFSH: Medical History (Updated 12/03/20 @ 06:27 by Adán Aranda MD) COPD (chronic obstructive pulmonary disease) diagnosis as per patient, remote smoker, PFTs without demonstrated obstructive component 02/24 Dementia Dyslipidemia History of pulmonary function tests (~02/2019) mild restrictive ventilatory defect, improved with bronchodilator, elevated RV/TLC, nl DLCO Hypertension Controlled Major depressive disorder, recurrent, in partial remission Obesity (BMI 30.0-34.9) Post-traumatic stress disorder, chronic Psychiatric care Restless leg syndrome Vitamin D deficiency Surgical History H/O section History of carpal tunnel release History of hysterectomy Family History Other Psychiatric illness Social History Smoking and tobacco status: former smoker Quit status (tobacco): has quit using tobacco Former quit date comment: 20 ya Alcohol intake: never Lives independently: Yes Household members: family and other Details: Daughter lives 7 stories above her Current occupational status: disabled Female Reproductive History: Para: 4 Mental Status Exam MSE Comments: This is an obese older white female looking older than her stated age with grooming and eye contact. No abnormal movements except for mild psychomotor retardation. Cooperative with exam in mild distress. Speech was normal rate slightly decreased volume. Mood described as a little anxious affect congruent. Thought process organized. Thought content: Patient denied suicidal or homicidal ideation currently but reports she was having suicidal thoughts earlier, there were no delusions noted but mild paranoia reported, she did endorse auditory loose Nations. Attention and concentration were intact and in appeared reliable but none were formally tested. She is alert and oriented x3. Insight and judgment appear fair impulse control appears fair. Vitals/I&O/Wt Last Vital Signs Pulse 67 11/19/20 11:01 Resp 18 11/19/20 11:01 BP 103/61 11/19/20 11:01 Pulse Ox 96 11/19/20 11:01 Weight last 48 hrs Weight 81.647 kg A&P Assessment and plan (1) Obesity (BMI 30.0-34.9): Status: Chronic (2) Uses continuous positive airway pressure (CPAP) ventilation at home: Status: Chronic (3) Post-traumatic stress disorder, chronic: Status: Chronic (4) Major depressive disorder, recurrent, in partial remission: Status: Chronic (5) Dementia: Status: Chronic Qualifiers: Dementia behavioral disturbance: without behavioral disturbance Dementi a type: unspecified type Qualified Code(s): F03.90 - Unspecified dementia without behavioral disturbance (6) Hallucinations: Status: Acute Additional A&P Information This is a 65-year-old white female with a long history of mental health challenges and trauma who presents with increased hallucinations and reports of having suicidal thoughts who is open to an increase in her medication and able to contract for safety prior to discharge. 1. Continue current medication. Except increase Risperdal 2 mg p.o. twice daily. 2. Imperative that she keep her appointment with her provider next week. Attestations NPU Medical Necessity Statement*: N/A. Please see primary team note for full details. But agree that discharge with increased medication and scheduled follow-up given her ability to contract for safety and her being in a facility with oversight is appropriate plan. Coding Level of Care Code Acute Head Charger for g Fwd Diagnoses Obesity (BMI 30.0-34.9) E66.9 Uses continuous positive airway pressure (CPAP) ventilation at home Z99.89 Post-traumatic stress disorder, chronic F43.12 Major depressive disorder, recurrent, in partial remission F33.41 Dementia F03.90 Dementia behavioral disturbance: without behavioral disturbance Dementia type: unspecified type Hallucinations R44.3
[2020-11-19] MEDS: risperiDONE 1 mg Tablet PO (14:59)
[2020-11-19 15:02] LABS: Add Urine Microscopic? NO; Charge for UA Resulting for Rev
[2020-11-19 15:04] VITALS: BP 112/74; PULSE 75; RESP 14; O2SAT 99
[2020-11-19 15:06] LABS: Bilirubin Urine Neg (Negative); Blood Urine Neg (Negative); Glucose Urine UA Norm (Normal); Ketones Urine Negative (Negative); Leukocyte Esterase Urine Negative (Negative); Nitrate Urine Negative (Negative); Protein Urine Neg (Negative); Urine Appearance Clear (CLEAR); Urine Color Yellow (Yellow); Urobilinogen Urine Norm (Negative); pH Urine 7 (5-7)
== END 2020-11-19 15:06 | disposition home or self-care (01) ==
PROVIDERS: Emergency Medicine; Emergency Provider Family Medicine; PCP Family Medicine
DX: F33.41 Major depressive disorder, recurrent, in partial remission (principal); F03.90 Unspecified dementia, unspecified severity, without behavioral disturbance, psychotic disturbance, mood disturbance, and anxiety; Z79.82 Long term (current) use of aspirin; J44.9 Chronic obstructive pulmonary disease, unspecified; E78.5 Hyperlipidemia, unspecified; I10 Essential (primary) hypertension; Z87.891 Personal history of nicotine dependence
CPT/HCPCS: 80053; 80307; 81003; 85025; 93005; 99283

== ENCOUNTER → 2020-11-23 09:13 | Outpatient (BNVA) | payer MEDICARE, MEDICAID, SELFPAY | PROVIDERS: PCP Family Medicine; Visit Provider Nurse Practitioner | DX: F43.12 Post-traumatic stress disorder, chronic (principal); F33.41 Major depressive disorder, recurrent, in partial remission | CPT/HCPCS: 99214 ==

== ENCOUNTER → 2020-12-28 07:47 | Outpatient (BNVA) | payer MEDICARE, MEDICAID, SELFPAY | PROVIDERS: PCP Family Medicine; Visit Provider Nurse Practitioner | DX: F43.12 Post-traumatic stress disorder, chronic (principal); F33.41 Major depressive disorder, recurrent, in partial remission | CPT/HCPCS: 99214 ==

== ENCOUNTER 2021-02-22 14:58 | Outpatient (CLI) | payer MEDICARE, MEDICAID, SELFPAY ==
--- NOTE | 2021-02-22 15:06 | XR_ITS ---
WS: [id number] Exam: XR sinus min 3V* [id number] Date/Time of Exam: 02/22/2021 3:06 PM Reason For Exam: ?SINUSCYTIUS The maxillary, ethmoid, frontal and sphenoid sinuses appear to be clear. No soft tissue masses or flu id level seen. Mastoid air cells appear to be clear. No fracture or obvious bone destruction. XR/XR sinus min 3V* [id number] IMPRESSION: 1. Paranasal sinuses appear to be clear.
== END 2021-02-22 14:59 | disposition home or self-care (01) ==
LOC: RAD 15:01
PROVIDERS: PCP Family Medicine; Visit Provider Nurse Practitioner Family
DX: J01.90 Acute sinusitis, unspecified (principal)
CPT/HCPCS: 70220

== ENCOUNTER → 2021-02-23 07:39 | Outpatient (BNVA) | payer MEDICARE, MEDICAID, SELFPAY | PROVIDERS: PCP Family Medicine; Visit Provider Nurse Practitioner | DX: F43.12 Post-traumatic stress disorder, chronic (principal); F33.41 Major depressive disorder, recurrent, in partial remission | CPT/HCPCS: 99214 ==

== ENCOUNTER → 2021-05-27 08:00 | Outpatient (BNVA) | payer MEDICARE, MEDICAID, SELFPAY | PROVIDERS: PCP Family Medicine; Visit Provider Nurse Practitioner | DX: F43.12 Post-traumatic stress disorder, chronic (principal); F33.41 Major depressive disorder, recurrent, in partial remission; Z79.899 Other long term (current) drug therapy | CPT/HCPCS: 99214 ==

== ENCOUNTER 2021-06-12 13:31 | Emergency (ER) | payer MEDICARE, MEDICAID, SELFPAY ==
[2021-06-12 13:40] VITALS: BP 150/73; PULSE 52; RESP 15; O2SAT 100; BMI 30.8
--- NOTE | 2021-06-12 13:40 | XRR_ITS ---
PROCEDURE INFORMATION: Exam: XR Chest Exam date and time: 06/12/2021 2:09 PM Age: 65 years old Clinical indication: Pain; Chest pressure; Additional info: Cp TECHNIQUE: Imaging protocol: XR of the chest. Views: 1 view. COMPARISON: CR XR chest 1V portable [id number] 12/05/2019 6:48 PM FINDINGS: Lungs: Right hilar to lower lobe atelectasis versus infiltrate. Pleural spaces: Unremarkable. No pleural effusion. No pneumothorax. Heart/Mediastinum: Cardiomegaly. Bones/joints: Unremarkable. XR/XR chest 1V portable [id number] IMPRESSION: 1. Cardiomegaly. 2. Right hilar to lower lobe atelectasis versus infiltrate.
--- NOTE | 2021-06-12 13:40 | ECG_ITS ---
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 Measurements Intervals [place] Rate: 54 P: 44 NV: 133 QRS: 43 QRSD: 138 T: 49 QT: 393 QTc: 374 Interpretive Statements SINUS BRADYCARDIA RIGHT BUNDLE BRANCH BLOCK [120+ ms QRS DURATION, UPRIGHT V1, 40+ ms S IN I/aVL/V4/V5/V6] INTERPRETATION BASED ON A DEFAULT AGE OF 40 YEARS Compared to ECG 11/19/2020 12:05:26 No significant changes Electronically Signed On 06-12-2021 22:44:55 CDT by Radha Valdivia M.D. [email or web address]
--- NOTE | 2021-06-12 13:46 | W.ED.CHESTPA ---
HPI - Chest Pain General: Chief Complaint: Chest Pain Stated Complaint: CHEST PAIN Time Seen by Provider: 06/12/21 13:38 Source: patient Mode of arrival: ambulatory Limitations: no limitations History of Present Illness: 65-year-old female who states over the last few days has been having some right-sided chest pain states been a sharp pain on for roughly 4 days states it does radiate to the left side. States when she gets the pain she has dyspnea with the pain denies any pain currently denies any worsening improving factors she is not having exertional pain no dyspnea she does have a history of pulm embolism years ago was not on any blood thinners at this time. Associated symptoms: Deny abdominal pain, dyspnea, fever(s), nausea or vomiting Review of Systems Const: Denies: fever(s), chills, body aches or change in appetite Eyes: Denies: blurry vision or eye discomfort ENMT: Denies: throat pain or dental pain Card: Reports: chest pain Resp: Denies: dyspnea GI: Denies: abdominal pain, nausea, vomiting or diarrhea : Denies: dysuria Musc: Denies: neck pain or back pain Skin/Breast: Denies: rash Neuro: Denies: headache(s) Psych: Denies: depression Onur/Lymph: Denies: easy bruising All/Imm: Denies: urticaria PFSH ED PFSH: Medical History COPD (chronic obstructive pulmonary disease) diagnosis as per patient, remote smoker, PFTs without demonstrated obstructive component 02/24 Dementia Dyslipidemia History of pulmonary function tests (~02/2019) mild restrictive ventilatory defect, improved with bronchodilator, elevated RV/TLC, nl DLCO Hypertension Controlled Major depressive disorder, recurrent, in partial remission Obesity (BMI 30.0-34.9) On combination antipsychotic drug therapy On combination antipsychotic drug therapy Post-traumatic stress disorder, chronic Psychiatric care Psychiatric care Restless leg syndrome Vitamin D deficiency Surgical History H/O section History of carpal tunnel release History of hysterectomy Family History Other Psychiatric illness Social History Smoking and tobacco status: former smoker Quit status (tobacco): has quit using tobacco Former quit date comment: 20 ya Alcohol intake: never Lives independently: Yes Household members: family and other Details: Daughter lives 7 stories above her Current occupational status: disabled Female Reproductive History: Para: 4 Physical Exam Const: COMMON NORMALS: no acute distress, patient oriented x3 and healthy appearing HENMT: COMMON NORMALS: normocephalic and atraumatic HEAD & SCALP: normocephalic and atraumatic Eye: COMMON NORMALS: Equal, round and reactive pupils present and EOMs intact bilaterally PUPIL: Yes Equal, round and reactive pupils present Neck/C-Spine: COMMON NORMALS: full ROM and supple Chest: COMMONS NORMALS: normal inspection of the chest OTHER: tenderness over right chest Resp: COMMON NORMALS: normal respiratory effort, No retractions, No use of accessory muscles and clear to auscultation bilaterally AUSCULTATION: clear to auscultation bilaterally Cardio: COMMON NORMALS: regular rate, regular rhythm and No murmurs present (Cardio) RATE: regular rate RHYTHM: regular rhythm GI: COMMON NORMALS: Normal to inspection, nondistended, normoactive bowel sounds present, Soft to palpation, non-tender and no masses PALPATION: Yes Soft to palpation Extremity: COMMON NORMALS: normal to inspection and full ROM Neuro: COMMON NORMALS: patient oriented x3, moves all extremities and no focal motor deficits Psych: COMMON NORMALS: mental status grossly normal, Normal thought process present and cooperative THOUGHT PROCESS: Normal thought process present Skin: COMMON NORMALS: no rashes or lesions noted and no wounds GENERAL SKIN EXAM: no rashes or lesions noted Course Vital Signs: Vital signs: Vital Signs Pulse Rate 68 06/12/21 14:11 Respiratory Rate 18 06/12/21 14:11 Blood Pressure 140/64 06/12/21 14:11 Pulse Oximetry 97 06/12/21 14:11 MDM - Chest Pain Medical Decision Making Patient presents for chest pains atypical in nature she is point tender in the right chest likely muscular pain D-dimer here is negative no signs of pulmonary embolism or aortic dissection. Troponin here is normal her pain is been going on for days do not need to check a 2-hour troponin she has no signs of acute coronary syndrome she is pain-free here she stable for discharge she is to follow-up with her PCP and return if worsening she understands agrees to plan. Lab Data : 06/12/21 14:03 06/12/21 14:03 Laboratory Results WBC 6.1 10^3/uL (4.0-10.0) 06/12/21 14:03 RBC 4.16 10^6/uL (4.1-5.3) 06/12/21 14:03 Hgb 13.2 g/dL (11.5-15.3) 06/12/21 14:03 Hct 40.2 % (37.0-47.0) 06/12/21 14:03 MCV 96.6 fl (81-99) 06/12/21 14:03 MCH 31.7 pg (28.0-34.0) 06/12/21 14:03 MCHC 32.8 g/dL (30.0-36.0) 06/12/21 14:03 RDW 12.6 % (12.1-15.1) 06/12/21 14:03 Plt Count 286 10^3/cmm (130-400) 06/12/21 14:03 MPV 9.3 fL (7.4-10.4) 06/12/21 14:03 Neut % (Auto) 54.4 % 06/12/21 14:03 Lymph % (Auto) 27.5 % 06/12/21 14:03 Orange % (Auto) 12.3 % 06/12/21 14:03 Eos % (Auto) 4.6 % 06/12/21 14:03 Baso % (Auto) 0.7 % 06/12/21 14:03 Neut # (Auto) 3.34 10^3/uL (1.8-7.7) 06/12/21 14:03 Lymph # (Auto) 1.7 10^3/uL (0.8-4.8) 06/12/21 14:03 Orange # (Auto) 0.8 10^3/uL (0.2-0.9) 06/12/21 14:03 Eos # (Auto) 0.3 10^3/uL (0.0-0.8) 06/12/21 14:03 Baso # (Auto) 0.0 10^3/uL (0.0-0.1) 06/12/21 14:03 Nucleated RBC % (auto) 0 % 06/12/21 14:03 Nucleated RBCs # 0.0 /100WBC 06/12/21 14:03 D-Dimer 0.36 ug/mIFEU (0-0.59) 06/12/21 14:03 Sodium 136 mmol/L (136-145) 06/12/21 14:03 Potassium 4.0 mmol/L (3.5-5.1) 06/12/21 14:03 Chloride 99 mmol/L (98-107) 06/12/21 14:03 Carbon Dioxide 27 mmol/L (22-29) 06/12/21 14:03 Anion Gap 14.0 (5-19) 06/12/21 14:03 BUN 8 mg/dL (8-23) 06/12/21 14:03 Creatinine 0.9 mg/dL (0.5-0.9) 06/12/21 14:03 GFR Calculation 62.6 mL/min (90-130) L 06/12/21 14:03 Glucose 76 mg/dL (65-115) 06/12/21 14:03 Calculated Osmolality 279 mOsm/kg (285-295) L 06/12/21 14:03 Calcium 10.2 mg/dL (8.5-10.5) 06/12/21 14:03 Total Bilirubin 0.2 mg/dL (0.15-1.2) 06/12/21 14:03 AST 16 U/L (0-32) 06/12/21 14:03 ALT 14 U/L (0-33) 06/12/21 14:03 Alkaline Phosphatase 86 IU/L (35-105) 06/12/21 14:03 Troponin T Baseline 10 ng/L (0-10) 06/12/21 14:03 Total Protein 6.8 g/dL (6.6-8.7) 06/12/21 14:03 Albumin 4.3 g/dL (3.5-5.2) 06/12/21 14:03 Globulin 2.5 g/dL (1.3-4.6) 06/12/21 14:03 EKG Data EKG 1: I personally reviewed and interpreted this EKG as follows: EKG interpretation date: 06/12/21 EKG interpretation time: 13:40 Interpretation: sinus dena hr [address] o r t wave abnormalities rbbb qrs 138 qtc 379 Discharge Plan Discharge Patient Disposition: Home Clinical Impression: Chest pain Qualifiers: Chest pain type: unspecified Qualified Code(s): R07.9 - Chest pain, unspecified Condition: Stable Prescriptions: New Naprosyn 500 mg tablet 500 mg PO BID PRN (Reason: pain) Qty: 20 0RF No Action propranolol 10 mg tablet 10 mg PO DAILY 0RF bupropion HCl [Wellbutrin XL] 300 mg tablet extended release 24 hr 300 mg PO QAM Qty: 30 2RF donepezil [Aricept] 10 mg tablet 10 mg PO BEDTIME 30 Days Qty: 30 2RF memantine [Namenda] 10 mg tablet 10 mg PO BID 30 Days Qty: 60 2RF trazodone 100 mg tablet 100 mg PO .HS Qty: 30 2RF risperidone 2 mg tablet 2 mg PO BID Qty: 60 2RF famotidine 20 mg Tablet 20 mg PO DAILY 30 Days Qty: 30 0RF Rx Instructions: pt unable to verify her medications-pt states [facility]-they are closed today so no way to get a medication list-ext med history shows last filled 11/21/2019 90d/s albuterol sulfate [Ventolin HFA] 90 mcg/actuation HFA aerosol inhaler 2 inh INHALATION Q6H PRN (Reason: shortness of breath or wheezing) Qty: 8.5 0RF Rx Instructions: pt unable to verify her medications-pt states [facility]-they are closed today so no way to get a medication list-ext med history shows last filled 11/07/2019 Anoro Ellipta 62.5-25 mcg/actuation blister with device 1 inh INHALATION DAILY 0RF Rx Instructions: pt unable to verify her medications-pt states [facility]-they are closed today so no way to get a medication list-ext med histoy shows last filled 11/07/2019 aspirin 81 mg Tablet,Delayed Release (Dr/Ec) 81 mg PO DAILY Qty: 30 0RF Rx Instructions: pt unable to verify her medications-[facility]-they are closed today so no way to get a medication list-ext med history shows last filled 11/25/2019 90d/s montelukast 10 mg tablet 10 mg PO DAILY 0RF Rx Instructions: pt unable to verify her medications-pt states [facility]-they are closed today so no way to get a medication list-ext med history shows last filled 10/11/2019 90d/s spironolactone 25 mg tablet 25 mg PO DAILY Qty: 0 0RF Rx Instructions: pt unable to verify her medications-pt states [facility]-they are closed today so no way to get a medication list-ext med history shows last filled 11/20/2019 90d/s albuterol sulfate 2.5 mg /3 mL (0.083 %) solution for nebulization 2.5 mg inhalation Q6H PRN (Reason: Shortness Of Breath) 0RF Rx Instructions: pt unable to verify her medications-pt states [facility]-they are closed today so no way to get a medication list-this medication was entered on a previous med list losartan 25 mg tablet 50 mg PO DAILY 0RF Rx Instructions: pt unable to verify her medications-pt states [facility]-they are closed today so no way to get a medication list-ext med history shows last filled 11/07/2019 90d/s Discharge Orders: Discharge ED (Routine); Ordered 06/12/21 Ordered By: Ronak Brito Referrals: Brigid Toro MD [Staff Physician] - Discharge Diet: Advance as tolerated Discharge Activity: Resume usual activity Patient Instructions: Chest Pain (ED) Coding Level of Care Code ED [employer] Man for g Fwd Exam Comprehensive
[2021-06-12 14:11] VITALS: BP 140/64; PULSE 68; RESP 18; O2SAT 97
[2021-06-12 14:20] LABS: Basophils % 0.7 %; Eosinophils # 0.3 10^3/uL (0.0-0.8); Eosinophils % 4.6 %; Hematocrit 40.2 % (37.0-47.0); Hemoglobin 13.2 g/dL (11.5-15.3); Lymphocytes # 1.7 10^3/uL (0.8-4.8); Lymphocytes % 27.5 %; Mean Corpuscular HGB Conc 32.8 g/dL (30.0-36.0); Mean Corpuscular Hemoglobin 31.7 pg (28.0-34.0); Mean Corpuscular Volume 96.6 fl (81-99); Mean Platelet Volume 9.3 fL (7.4-10.4); Monocytes # 0.8 10^3/uL (0.2-0.9); Monocytes % 12.3 %; Neutrophils # 3.34 10^3/uL (1.8-7.7); Neutrophils % 54.4 %; Nucleated Red Blood Cells % 0 %; Platelet Count 286 10^3/cmm (130-400); Red Blood Count 4.16 10^6/uL (4.1-5.3); Red Cell Distribution Width 12.6 % (12.1-15.1); White Blood Count 6.1 10^3/uL (4.0-10.0)
--- NOTE | 2021-06-12 14:37 | PC.NURSE ---
PT placed on continuous NIBP, SpO2, and CM
[2021-06-12 14:43] LABS: Alanine Aminotransferase 14 U/L (0-33); Albumin Level 4.3 g/dL (3.5-5.2); Alkaline Phosphatase 86 IU/L (35-105); Aspartate Amino Transferase 16 U/L (0-32); Blood Urea Nitrogen 8 mg/dL (8-23); Calcium 10.2 mg/dL (8.5-10.5); Carbon Dioxide 27 mmol/L (22-29); Chloride 99 mmol/L (98-107); Globulin 2.5 g/dL (1.3-4.6); Glomerular Filtration Rate 62.6 mL/min (90-130); Glucose 76 mg/dL (65-115); Osmolality Calculated 279 mOsm/kg (285-295); Sodium 136 mmol/L (136-145); Total Bilirubin 0.2 mg/dL (0.15-1.2); Total Protein 6.8 g/dL (6.6-8.7)
[2021-06-12 14:44] LABS: Troponin(5th) Baseline 10 ng/L (0-10)
[2021-06-12 14:47] LABS: D Dimer 0.36 ug/mIFEU (0-0.59)
[2021-06-12 15:05] VITALS: BP 133/61; PULSE 57; RESP 21; O2SAT 98
== END 2021-06-12 15:06 | disposition home or self-care (01) ==
PROVIDERS: Emergency Provider Emergency Medicine; PCP Family Medicine
DX: R07.89 Other chest pain (principal); J44.9 Chronic obstructive pulmonary disease, unspecified; I10 Essential (primary) hypertension; Z79.82 Long term (current) use of aspirin; Z87.891 Personal history of nicotine dependence
CPT/HCPCS: 71045; 80053; 84484; 85025; 85378; 93005; 99284

== ENCOUNTER 2021-06-24 12:56 | Outpatient (CLI) | payer MEDICARE, MEDICAID, SELFPAY ==
--- NOTE | 2021-06-24 13:06 | MM_ITS ---
WS: [id number] Bilateral screening 3D tomosynthesis digital mammogram, 06/24/2021 Clinical Data: SCREENING Comparison: 11/12/2018, 10/17/2017, 09/22/2016, 08/06/2015, 07/13/2015, 06/18/2014, 06/11/2013, 05/30/2012, 05/04, 01/04/2010, 12/08/2008, 12/03/2007, 11/15/2006, 11/13/2005. Findings: The breast parenchymal pattern shows fat replacement. No spiculated masses or clustered calcification s are seen. There are no secondary signs of carcinoma. MM/[place] [id number] Impression: 1. Negative bilateral mammogram unchanged. 2. Recommend annual screening mammograms. BIRADS: 1-Negative FOLLOW UP: 1 Year Follow-up The CAD schedule checker was used.
== END 2021-06-24 12:57 | disposition home or self-care (01) ==
PROVIDERS: PCP Family Medicine; Visit Provider Family Medicine
DX: Z12.31 Encounter for screening mammogram for malignant neoplasm of breast (principal)
CPT/HCPCS: 77063; 77067

== ENCOUNTER → 2021-06-28 10:32 | Outpatient (BNVA) | payer MEDICARE, MEDICAID, SELFPAY | PROVIDERS: PCP Family Medicine; Visit Provider Nurse Practitioner | DX: Z79.899 Other long term (current) drug therapy (principal) | CPT/HCPCS: 80061; 83036 ==